=== PATIENT | male | born 1950 | race Two or more races ===

== ENCOUNTER 2025-05-31 18:06 | Inpatient (IN) | payer BC, OTHER ==
[~2025-05-31] VITALS: Ht 180.3 cm; Wt 140.6 kg
--- NOTE | 2025-05-31 18:23 | ECG ---
[facility] Test Date: 2025-05-31 Test Time: 18:17:34 Pat Name: NIEVES STOUT Department[facility] Patient [facility]: [id number] Room: 0220T Gender: M [employer]: gp : 1950 Requested By: SUHAIL LOMAS Order Number: [id number] Reading MD: Guicho Draper Measurements Intervals [place] Rate: 105 P: 48 [place]: 159 QRS: 93 QRSD: 97 T: -14 QT: 349 QTc: 462 Interpretive Statements Sinus tachycardia Multiple ventricular premature complexes Right axis deviation Low voltage, precordial leads Borderline T abnormalities, inferior leads Electronically Signed On 06-04-2025 20:29:34 PDT by Guicho Draper Please click the below link to view image of tracing.
--- NOTE | 2025-05-31 18:38 | ED.PDOC ---
SOB-HPI HPI Comments HPI: 74 year old male presents to the emergency department with a chief compliant of shortness of breath onset today (05/31/25) about 1 hour prior to ED arrival. Per EMS, patient was at home, cooking, when he began experiencing shortness of breath. Upon EMS arrival, O2 sat was 85% on RA, placed on 4L NC O2 sat improved to 94%. Patient has not seen PCP in years, unknown if he has any medical conditions and not taking any medications. Denies fever, chills, chest pain, dizziness, headache, blurred vision, nausea, vomiting, diarrhea, numbness/tingling. No other symptoms or modifying factors present at this time. Initial Vitals BP: 144/99 HR: 107 RR: 20 O2: 94% on 4L Temp: 98.1 F Past Medical History: Denies Past Surgical History: Denies Social History: Denies ETOH, smoking, and drug use. Medications: Denies Allergies: NKDA HPI: Poor Historian. Past Medical History: Past Surgical History: REVIEW OF SYSTEMS: CONSTITUTIONAL: Denies acute: fever, diaphoresis, chills, HEAD: Denies acute: headache, photophobia Eyes: Denies acute: Double vision, vision loss, eye pain, eye discharge. EARS: Denies acute: tinnitus, hearing loss, ear discharge, ear pain, THROAT: Denies acute: sore throat, swelling, difficulty swallowing , pain with swallowing, change in voice. NECK: Denies acute: neck pain, neck swelling, stiff neck. HEART: Denies acute : chest pain, palpitations, LUNGS: Denies acute: wheezing, cough, hemoptysis ABDOMEN: Denies acute: abdominal pain, Nausea, Vomiting, diarrhea, melena , hematemesis, hematochezia SKIN: Denies acute: rash, redness, lesions, itchiness. EXTREMITIES: Denies acute: calf pain, numbness, tingling, weakness, denies pain in extremity. Denies acute: Low back pain. Neuro: Denies acute: focal neurological deficit, motor or sensory focal neurological deficit, tremors, seizure like activity, confusion, dizziness, change in mental status, loss of bowel or bladder function, cauda equina like symptoms. : Denies acute: dysuria, hematuria, flank pain, increase in urinary frequency. PSYCH: Denies acute: hallucination, suicidal ideation, homicidal ideation. FEMALE: Denies acute: abnormal vaginal bleeding, foul odor, unusual discharge. PHYSICAL EXAM: General: ----[id number]----acute distress, awake and alert. Head: normocephalic, atraumatic. Neck: supple, trachea is midline, no swelling. Throat: Normal phonation. Eyes:, no erythema, no purulent discharge, no proptosis, no icterus. Heart: regular rate, regular rhythm, no significant murmur appreciated. Lungs: Mild respiratory distress, Able to speak in full sentences. No wheezing, no rhonchi, no crackles. No stridors Clear to auscultation bilaterally. Abdomen: non tender to palpation, non distended, soft, no guarding, no rebound, + bowel sounds. Obese Neuro: Awake, Alert, oriented to name, self, situation, follows commands GCS=15. Speech is normal. Skin: no petechia, no purpura, no cyanosis, non-pale, not jaundice. Lower extremities: --1/4 b/l - Pitting edema no deformity, no focal swelling, no calf TTP. Makes eye contact. moves all four extremities. Face: no apparent facial droop. Ambulating in the ED independently. ED COURSE: DISCLAIMER: This medical document was created using an electronic medical record system with voice recognition software and computerized dictation system. Although this document has been carefully reviewed, there might still be some phonetic and typographical errors. Occasional wrong-word or "sound-alike" substitutions may have occurred due to the inherent limitations of voice recognition software. These areas are purely typographical due to imperfections of the software programs and do not reflect any compromise in the patient's medical care. Please read the chart carefully and recognize, using context, where these substitutions have occurred. Chief Complaint: Shortness of Breath Time Seen by MD: 18:15 Reviewed notes: Medications, Allergies Information Source: Patient, Emergency Med Personnel Mode of Arrival: EMS Severity: Moderate Timing: Hours Duration: Since onset Context: With Light Exertion PE Risk Factors: None History of: None Prehospital treatment: Oxygen (4L ) Past Medical History PAST MEDICAL HISTORY: Denies Surgical History: Denies all surgeries Family History Family History: Reviewed,noncontributory to illness, No family hx of Cancer, No family hx of DM, No family hx of Heart elías, No family hx of HTN, No family hx ofKidney elías, No family hx of Liver elías, No family hx of Lung elías, No family hx of Stroke Social History Smoker: Non-Smoker Alcohol: Denies ETOH Use Drugs: Denies Drug Use Lives In: Home EKG EKG : Pulse Rate (adult): 105 Cardiac Rhythm: ST, PVC's Comments t wave inversion lead 3 Was a procedure done? Was a procedure done?: No Differential Dx Differential Diagnosis: Other (DDx include ACS, unstable angina, anxiety, PE, pneumothroax, neoplasm, cardiac ischemia, COPD, asthma, CHF, pleural effusion, tobacco abuse, pneumonia, hypoxia, hypercapnia, anemia., infection/sepsis., pulmonary edema. Asthma, Cardiac tamponade, infection.) X-Ray, Labs, Meds, VS Vital Signs Date Time Temp Pulse Resp B/P (MAP) Pulse Ox O2 Delivery O2 Flow Rate FiO2 05/31/25 20:00 90 05/31/25 20:00 93 14 127/80 (96) 95 05/31/25 19:30 97.9 91 13 136/79 (98) 96 97.9 05/31/25 19:30 91 13 96 Nasal Cannula* 5 40 05/31/25 18:38 105 05/31/25 18:29 90 15 155/70 (98) 91 05/31/25 18:17 105 05/31/25 18:10 98.1 107 20 147/99 94 98.1 Lab Test 05/31/25 19:43 05/31/25 18:50 Range/Units Troponin I High Sensitivity 4 6 </=54 ng/L Triglycerides Level 90 < 150 mg/dL Cholesterol Level 116 < 200 mg/dL LDL Cholesterol 79 < 100 mg/dL HDL Cholesterol 35 L 40-59 mg/dL Thyroid Stimulating Hormone (TSH) 1.50 0.55-4.78 uIU/mL White Blood Count 7.8 4.4-10.8 10^3/uL Red Blood Count 3.42 L 4.5-5.90 10^6/uL Hemoglobin 11.1 L 13.5-17.5 g/dL Hematocrit 32.9 L 41.0-53.0 % Mean Corpuscular Volume 96.0 80.0-100.0 fL Mean Corpuscular Hemoglobin 32.3 H 28.0-32.0 pg Mean Corpuscular Hemoglobin Concent 33.6 32.0-36.0 g/dL Red Cell Distribution Width 15.0 H 11.8-14.3 % Platelet Count 294 140-450 10^3/uL Mean Platelet Volume 7.3 6.9-10.8 fL Neutrophils (%) (Auto) 66.0 37.0-80.0 % Lymphocytes (%) (Auto) 24.8 10.0-50.0 % Monocytes (%) (Auto) 7.0 0.0-12.0 % Eosinophils (%) (Auto) 1.7 0.0-7.0 % Basophils (%) (Auto) 0.5 0.0-2.0 % Neutrophils # (Auto) 5.1 1.6-8.6 10 ^3/uL Lymphocytes # (Auto) 1.9 0.4-5.4 10 ^3/uL Monocytes # (Auto) 0.5 0-1.3 10 ^3/uL Eosinophils # (Auto) 0.1 0-0.8 10 ^3/uL Basophils # (Auto) 0 0-0.2 10 ^3/uL Nucleated Red Blood Cells 0.2 % D-Dimer, Quantitative 3.75 H 0.0-0.49 mg/L FEU Sodium Level 142 136-145 mmol/L Potassium Level 3.8 3.5-5.1 mmol/L Chloride Level 104 98-107 mmol/L Carbon Dioxide Level 27 20-31 mmol/L Anion Gap 11 5-15 Blood Urea Nitrogen 11 9-23 mg/dL Creatinine 0.81 0.700-1.30 mg/dL Glomerular Filtration Rate Calc 92 >90 mL/min BUN/Creatinine Ratio 13.6 10.0-20.0 Serum Glucose 141 H 74-106 mg/dL Hemoglobin A1c 6.7 H <5.7 % A1C Calcium Level 8.4 L 8.7-10.4 mg/dL Total Bilirubin 0.4 0.2-1.0 mg/dL Aspartate Amino Transferase (AST) 26 13-40 U/L Alanine Aminotransferase (ALT) 23 7-40 U/L Alkaline Phosphatase 79 46-116 U/L B-Type Natriuretic Peptide 99.00 0-100 pg/mL Total Protein 6.9 5.7-8.2 g/dL Albumin 3.9 3.2-4.8 g/dL [address] [address] Ph: [phone] DIAGNOSTIC IMAGING Diagnostic Imaging Report : [id number] Signed PATIENT: NIEVES STOUT RACCT: [id number] UNIT: [id number] : 1950 LOC: ER ROOM / BED: / AGE / SEX: 74 / M ADM STATUS: REG ER SERVICE 34 ORDERING PHYSICIAN: SUHAIL LOMAS DO PROCEDURE(s): CXRP - CHEST PORTABLE REASON: cp ORDER NUMBER(s): [id number], ACCESSION NUMBER(s): [id number] CLINICAL HISTORY: cp TECHNIQUE: Single view of the chest was obtained. COMPARISON: None FINDINGS: The heart size and pulmonary vasculature are normal. There is a left basilar opacity. IMPRESSION: Left basilar opacity, likely atelectasis left trace pleural effusion. ATED BY: LUCIANO PHAN MD DICTATED DATE/TIME: 05/31/251918 SIGNED BY: LUCIANO PHAN MD SIGNED DATE/TIME: 05/31/251918 CC: Time of 1ST Reevaluation: 18:45 Reevaluation 1ST: Unchanged Patient Education/Counseling: Diagnosis, Treatment Family Education/Counseling: No Family Present Comments MDM: patient presented with the above HPI.---dyspnea---workup was initiated. patient was found with the above mentioned diagnosis. the following medications were ordered: please refer to order lists of meds and tests obtained by myself Dr. Lomas. Patient ED course and VS have been stabilized. Patient has been reassessed in the ED and remained in a stable condition. Pertinent incidental findings were discussed with the patient and/or family. Patient/family voices understanding and is agreeable with plan. Patient has been observed in the ED adequate length of time to insure improvement/stability. Escalation of care considered: Consideration of escalation to observation or admission Patient was ADMITTED to the medicine team for further evaluation and treatment of their presentation. All the reports of any imaging studies that were ordered by myself were reviewed by myself. Departure 1 Departure Time of Disposition: 18:49 Impression: Primary Impression: Hypoxemia Additional Impression: Dyspnea Disposition: 09 ADMITTED INPATIENT Admit to: Tele Condition: Guarded e-Prescriptions No Active Prescriptions or Reported Meds Discharged With: Self Critical Care Note Critical Care Time?: Yes (45 min-critical care time only) Heart Score Heart Score: Heart Score Response (Comments) Value History Slightly Suspicious 0 EKG Normal 0 Age >65 2 Risk Factors No known risk factors 0 Troponin Normal limit 0 Total 2 I personally scribed for SUHAIL LOMAS DO ([email or web address]) on 05/31/25 at 18:38. Electronically submitted by Elzbieta Combs ([email or web address]). I personally scribed for SUHAIL LOMAS DO ([email or web address]) on 05/31/25 at 18:42. Electronically submitted by Elzbieta Combs ([email or web address]). I personally scribed for SUHAIL LOMAS DO ([email or web address]) on 05/31/25 at 19:37. Electronically submitted by Elzbieta Combs ([email or web address]). SUHAIL LOMAS DO May 31, 2025 18:38
[2025-05-31 19:21] LABS: Hematocrit 32.9 % (41.0-53.0); Hemoglobin 11.1 g/dL (13.5-17.5); Mean Corpuscular Hemoglobin 32.3 pg (28.0-32.0); Mean Corpuscular Volume 96.0 fL (80.0-100.0); Nucleated Red Blood Cells % 0.2 %
--- NOTE | 2025-05-31 19:21 | DVH ---
CLINICAL HISTORY: cp TECHNIQUE: Single view of the chest was obtained. COMPARISON: None FINDINGS: The heart size and pulmonary vasculature are normal. There is a left basilar opacity. IMPRESSION: Left basilar opacity, likely atelectasis left trace pleural effusion.
[2025-05-31 19:30] VITALS: PULSE 91; RESP 13; O2SAT 96
[2025-05-31 19:34] LABS: Alanine Aminotransferase 23 U/L (7-40); Albumin 3.9 g/dL (3.2-4.8); Alkaline Phosphatase 79 U/L (46-116); Anion Gap 11 (5-15); BUN/Creatinine Ratio 13.6 (10.0-20.0); Bilirubin, Total 0.4 mg/dL (0.2-1.0); Blood Urea Nitrogen 11 mg/dL (9-23); Carbon Dioxide 27 mmol/L (20-31); Chloride 104 mmol/L (98-107); Potassium 3.8 mmol/L (3.5-5.1); Sodium 142 mmol/L (136-145); Total Protein 6.9 g/dL (5.7-8.2)
[2025-05-31 19:35] LABS: Calcium 8.4 mg/dL (8.7-10.4); Glucose 141 mg/dL (74-106)
[2025-05-31] MEDS: IOHEXOL 350 MG/ML 100ML IJ ONE (20:39)
[2025-05-31] MEDS ORDERED: MORPHINE SULFATE INJ 2 MG/ml SYRG IV PRN (20:45)
[2025-05-31] MEDS ORDERED: NITROGLYCERIN 0.4 MG SL TAB SL PRN (20:45)
--- NOTE | 2025-05-31 22:36 | DVH ---
CTA Chest with intravenous contrast INDICATION: r/ pe COMPARISON: Same day chest radiograph TECHNIQUE: Multidetector spiral CTA of the chest was performed of the chest with intravenous contrast . PULMONARY ANGIOGRAPHY PROTOCOL was utilized using a bolus-tracking technique centered on the main p ulmonary artery. Axial, coronal and sagittal multiplanar and MIP reformats were performed. Radiation Dose : 1. Chest: CTDI volume is 28.59 mGy. Dose-length product is 1124.45 mGy*cm The dose indicators for CT are the volume Computed Tomography (CT) Dose Index (CTDIvol) and the Dose Length Product (DLP), and are measured in units of mGy and mGy-cm, respectively. These indicators are not patient dose, but values generated from the CT scanner acquisition factors. The report includes radiation exposure data for exposures received during this examination. Findings: Pulmonary arteries: Suboptimal contrast bolus timing, adequate for assessment to the level of the lob ar arteries. Possible filling defects within the left lower lobar and proximal segmental branches (se macrina 2, images 119- 128/283). Central pulmonary arteries are normal in caliber. Lower neck: Unremarkable. Lungs: No focal consolidation. Mild ground-glass attenuation in the lung bases. Peripheral pulmonary arterial enlargement. Pleura: Normal. Heart/Vascular Structures: Upper normal heart size. No pericardial effusion. Multivessel coronary a therosclerosis. Lymph Nodes: No adenopathy Musculoskeletal: No acute osseous abnormality. Mild degenerative changes. Soft tissues: Unremarkable. Upper abdomen: No acute findings. Hepatic simple density cyst. IMPRESSION: 1. Questionable small embolism at the distal left inferior lobar and proximal subsegmental branches. Assessment is limited by suboptimal contrast bolus timing. No evidence of right heart strain. 2. Peripheral pulmonary arterial enlargement and basilar ground-glass attenuation suggesting mild hea rt failure. No focal consolidation. I communicated the above finding of suspected pulmonary embolism by telephone with Dr. Duenas at 10:32 p.m. PST on 05/31/2025, who demonstrated understanding with positive read back.
[2025-05-31] MEDS ORDERED: ALBUTEROL SULF 2.5 MG/0.5ML(0.5%) NEB SOLN NEB PRN (23:45)
[2025-05-31] MEDS ORDERED: ACETAMINOPHEN 325 MG TAB PO PRN (23:45)
[2025-05-31] MEDS ORDERED: HYDROcodone-ACET 5/325MG TAB PO PRN (23:45)
[2025-05-31] MEDS ORDERED: ONDANSETRON HCL 4 MG/2 ML VIAL IV PRN (23:45)
--- NOTE | 2025-05-31 23:48 | DVHHP2 ---
History of Present Illness Reason for Visit: Shortness for breath History of Present Illness 74-year-old male presents for evaluation of shortness for breath. Patient reports a one day history of new onset shortness for breath. He states his symptoms are worse with exertion. Denies chest pain or palpitations. No cough or fever. No other acute complaints. Patient has not seen a medical provider in over 30 years. Past Medical History Denies Past Surgical History Denies Family History Noncontributory Smoke: No Drugs: None Lives: Alone Review of Systems Review of Systems Review of systems are currently negative otherwise addressed in HPI. Allergies: Coded Allergies: NO KNOWN ALLERGIES (Unverified , 05/31/25) Medications Current Medications Medications Dose Ordered Sig/Judi Route Start Time Stop Time Status Last Admin Dose Admin Nitroglycerin 0.4 mg Q5MINP PRN SL 05/31/25 20:45 Morphine Sulfate 2 mg Q30M PRN IV 05/31/25 20:45 Exam Vital Signs Vital Signs Date Time Temp Pulse Resp B/P (MAP) Pulse Ox O2 Delivery O2 Flow Rate FiO2 05/31/25 20:00 90 05/31/25 20:00 14 127/80 (96) 95 05/31/25 19:30 97.9 97.9 05/31/25 19:30 Nasal Cannula* 5 40 Exam Gen: 74-year-old male in mild distress. Skin: Warm, dry, normal color and texture, no rash. HEENT: Normocephalic atraumatic, mucous membranes moist and pink. Neck: Cervical and supraclavicular nodes normal without enlargement, trachea is midline, thyroid gland is normal without masses. Pulmonary: Clear to auscultation and percussion bilaterally. Cardiac: Regular rate and rhythm. No murmur Abdomen: Soft, nontender, nondistended, bowel sounds present all 4 quadrants, no guarding, no rigidity, no organomegaly. Extremities: No cyanosis, clubbing, no edema Neuro: Cranial nerves II through XII grossly intact, normal affect and speech, no focal motor deficits. Labs/Xrays ORDERING PHYSICIAN: ANTHONY MONTAGUE PROCEDURE(s): CTACH - CT ANGIO CHEST CONTRAST REASON: r/ pe ORDER NUMBER(s): [id number], ACCESSION NUMBER(s): [id number] CTA Chest with intravenous contrast INDICATION: r/ pe COMPARISON: Same day chest radiograph TECHNIQUE: Multidetector spiral CTA of the chest was performed of the chest with intravenous contrast. PULMONARY ANGIOGRAPHY PROTOCOL was utilized using a bolus- tracking technique centered on the main pulmonary artery. Axial, coronal and sagittal multiplanar and MIP reformats were performed. Radiation Dose : 1. Chest: CTDI volume is 28.59 mGy. Dose-length product is 1124.45 mGy*cm The dose indicators for CT are the volume Computed Tomography (CT) Dose Index (CTDIvol) and the Dose Length Product (DLP), and are measured in units of mGy and mGy-cm, respectively. These indicators are not patient dose, but values generated from the CT scanner acquisition factors. The report includes radiation exposure data for exposures received during this examination. Findings: Pulmonary arteries: Suboptimal contrast bolus timing, adequate for assessment to the level of the lobar arteries. Possible filling defects within the left lower lobar and proximal segmental branches (series 2, images 119- 128/283). Central pulmonary arteries are normal in caliber. Lower neck: Unremarkable. Lungs: No focal consolidation. Mild ground-glass attenuation in the lung bases. Peripheral pulmonary arterial enlargement. Pleura: Normal. Heart/Vascular Structures: Upper normal heart size. No pericardial effusion. Multivessel coronary atherosclerosis. Lymph Nodes: No adenopathy Musculoskeletal: No acute osseous abnormality. Mild degenerative changes. Soft tissues: Unremarkable. Upper abdomen: No acute findings. Hepatic simple density cyst. IMPRESSION: 1. Questionable small embolism at the distal left inferior lobar and proximal subsegmental branches. Assessment is limited by suboptimal contrast bolus timing. No evidence of right heart strain. 2. Peripheral pulmonary arterial enlargement and basilar ground-glass attenuation suggesting mild heart failure. No focal consolidation. I communicated the above finding of suspected pulmonary embolism by telephone with Dr. Duenas at 10:32 p.m. PST on 05/31/2025, who demonstrated understanding with positive read back. Labs Test 05/31/25 19:43 05/31/25 18:50 Range/Units Troponin I High Sensitivity 4 </=54 ng/L White Blood Count 7.8 4.4-10.8 10^3/uL Red Blood Count 3.42 L 4.5-5.90 10^6/uL Hemoglobin 11.1 L 13.5-17.5 g/dL Hematocrit 32.9 L 41.0-53.0 % Mean Corpuscular Volume 96.0 80.0-100.0 fL Mean Corpuscular Hemoglobin 32.3 H 28.0-32.0 pg Mean Corpuscular Hemoglobin Concent 33.6 32.0-36.0 g/dL Red Cell Distribution Width 15.0 H 11.8-14.3 % Platelet Count 294 140-450 10^3/uL Mean Platelet Volume 7.3 6.9-10.8 fL Neutrophils (%) (Auto) 66.0 37.0-80.0 % Lymphocytes (%) (Auto) 24.8 10.0-50.0 % Monocytes (%) (Auto) 7.0 0.0-12.0 % Eosinophils (%) (Auto) 1.7 0.0-7.0 % Basophils (%) (Auto) 0.5 0.0-2.0 % Neutrophils # (Auto) 5.1 1.6-8.6 10 ^3/uL Lymphocytes # (Auto) 1.9 0.4-5.4 10 ^3/uL Monocytes # (Auto) 0.5 0-1.3 10 ^3/uL Eosinophils # (Auto) 0.1 0-0.8 10 ^3/uL Basophils # (Auto) 0 0-0.2 10 ^3/uL Nucleated Red Blood Cells 0.2 % D-Dimer, Quantitative 3.75 H 0.0-0.49 mg/L FEU Sodium Level 142 136-145 mmol/L Potassium Level 3.8 3.5-5.1 mmol/L Chloride Level 104 98-107 mmol/L Carbon Dioxide Level 27 20-31 mmol/L Anion Gap 11 5-15 Blood Urea Nitrogen 11 9-23 mg/dL Creatinine 0.81 0.700-1.30 mg/dL Glomerular Filtration Rate Calc 92 >90 mL/min BUN/Creatinine Ratio 13.6 10.0-20.0 Serum Glucose 141 H 74-106 mg/dL Calcium Level 8.4 L 8.7-10.4 mg/dL Total Bilirubin 0.4 0.2-1.0 mg/dL Aspartate Amino Transferase (AST) 26 13-40 U/L Alanine Aminotransferase (ALT) 23 7-40 U/L Alkaline Phosphatase 79 46-116 U/L B-Type Natriuretic Peptide 99.00 0-100 pg/mL Total Protein 6.9 5.7-8.2 g/dL Albumin 3.9 3.2-4.8 g/dL SEPSIS Sepsis Screen Date sepsis recognized/suspect: May 31, 2025 Time Sepsis recognized/suspect: 2025 Recent Procedure: No On Antibiotic Therapy: No Respiratory Rate >20: No Heart Rate >90: Yes Temp<36 C (96.8 F) or >38.3 C: No SBP <90 or MAP <65 mmHG: No New Acute Mental Status Change: No Is the patient on CPAP, BIPAP,: No Physician Orders Straw Hat Brim Raiser Operator (05/31/25 ) Chest Portable (05/31/25 18:35) Electrocardigram (05/31/25 10:35) Electrocardigram (05/31/25 12:35) Urinalysis (05/31/25 18:35) Admit (05/31/25 20:31) Nitroglycerin Sublingual (Ntrostat Subli (05/31/25 20:45) Morphine Sulfate Injection (05/31/25 20:45) Stat Ekg For Chest Pain (05/31/25 20:31) Notify Md Of Changes From Base (05/31/25 20:31) Collect On Delivery Clerk For 24 Hours (05/31/25 20:31) Emergency Dysrhythmia Protocol (05/31/25 20:31) Rhythm Strips Once Every Shift (05/31/25 20:31) Oxygen By Nasal Cannula (05/31/25 20:31) Ct Angio Chest Contrast (05/31/25 20:31) Enoxaparin Sodium (Lovenox) (05/31/25 23:45) Aspirin Tablet (06/01/25 10:00) Atorvastatin (Lipitor) (06/01/25 22:00) Hemoglobin A1c (05/31/25 23:36) Thyroid Stimulating Hormone (05/31/25 23:36) Lipid Panel (05/31/25 23:36) Metoprolol Xl Succinate (Toprol Xl) (06/01/25 10:00) *Consult (05/31/25 23:36) Albuterol Medneb (Ventolin Medneb) (05/31/25 23:45) Basic Metabolic Panel (06/01/25 04:00) Hydrocodone-Acet 5/325mg Tab ([place] 5/32 (05/31/25 23:45) Ondansetron Hcl (Zofran) (05/31/25 23:45) Cardiac Diet-2gna,Lofat,Lochol (06/01/25 Breakfast) Echo 2d Mode Cardiac Dop (05/31/25 23:36) Condition: Fair (05/31/25 23:36) Acetaminophen Tablet (Tylenol Tablet) (05/31/25 23:45) Bedrest With Bathroom Privileg (05/31/25 23:36) * Cardiology Consult (05/31/25 23:36) Vital Signs Date Time Temp Pulse Resp B/P (MAP) Pulse Ox O2 Delivery O2 Flow Rate FiO2 05/31/25 20:00 90 05/31/25 20:00 93 14 127/80 (96) 95 05/31/25 19:30 97.9 91 13 136/79 (98) 96 97.9 05/31/25 19:30 91 13 96 Nasal Cannula* 5 40 05/31/25 18:38 105 05/31/25 18:29 90 15 155/70 (98) 91 05/31/25 18:17 105 05/31/25 18:10 98.1 107 20 147/99 94 98.1 Laboratory Tests Test 05/31/25 18:50 White Blood Count 7.8 10^3/uL (4.4-10.8) Assessment/Plan Assessment/Plan Assessment Pulmonary embolism Acute respiratory distress Hypoxemia Questionable heart failure Hypertension Morbid obesity Plan Admit the patient to telemetry to the hospitalist Faizan colon Cardiology consult Pulmonary consult Echocardiogram pending Continue treatment per orders. Plan discussed with: Patient My Orders Orders - ANTHONY MONTAGUE Procedure Category Date Status Time Admit ADMIT 05/31/25 Transmitted 20:31 Nitroglycerin PHA 05/31/25 In Process Sublingual (Ntrostat 20:45 Morphine Sulfate PHA 05/31/25 In Process Injection 20:45 Stat Ekg For Chest STEVIE 05/31/25 In Process Pain 20:31 Notify Of Changes STEVIE 05/31/25 In Process From Base 20:31 Collect On Delivery Clerk For STEVIE 05/31/25 In Process 24 Hours 20:31 Emergency Dysrhythmia STEVIE 05/31/25 In Process Protocol 20:31 Rhythm Strips Once STEVIE 05/31/25 In Process Every Shift 20:31 Oxygen By Nasal RT 05/31/25 Transmitted Cannula 20:[address] 05/31/25 Resulted Contrast 20:31 Enoxaparin Sodium PHA 05/31/25 Transmitted (Lovenox) 23:45 Aspirin Tablet PHA 06/01/25 Transmitted 10:00 Atorvastatin (Lipitor) PHA 06/01/25 Transmitted 22:00 Hemoglobin A1c LAB 05/31/25 Transmitted 23:36 Thyroid Stimulating LAB 05/31/25 Transmitted Hormone 23:36 Lipid Panel LAB 05/31/25 Transmitted 23:36 Metoprolol Xl PHA 06/01/25 Transmitted Succinate (Toprol Xl) 10:00 *Consult CONS 05/31/25 Transmitted 23:36 Albuterol Medneb PHA 05/31/25 Transmitted (Ventolin Medneb) 23:45 Basic Metabolic Panel LAB 06/01/25 Verified 04:00 Hydrocodone-Acet PHA 05/31/25 Transmitted 5/325mg Tab ([place] 23:45 Ondansetron Hcl PHA 05/31/25 Transmitted (Zofran) 23:45 Cardiac DIET 06/01/25 Transmitted Diet-2gna,Lofat,Lochol Breakfast Echo 2d Mode Cardiac US 05/31/25 Transmitted DOP 23:36 Condition: Fair STEVIE 05/31/25 Transmitted 23:36 Acetaminophen Tablet PHA 05/31/25 Transmitted (Tylenol Tablet) 23:45 Bedrest With Bathroom STEVIE 05/31/25 Verified Privileg 23:36 * Cardiology Consult CONS 05/31/25 Verified 23:36 Date of Service: May 31, 2025 Billing Provider: ANTHONY MONTAGUE Common Visit Codes: [id number] INP/OBS CARE (HIGH) ANTHONY MONTAGUE May 31, 2025 23:48
[2025-06-01] VITALS (12 sets, daily range): BP systolic 111–151; BP diastolic 69–86; PULSE 58–101; RESP 16–20; TEMP 97.5–99; O2SAT 95–100
[2025-06-01] MEDS: ENOXAPARIN SOD 100 MG/1 ML SYRINGE SC SCH (00:13)
[2025-06-01 00:47] LABS: Urine Protein, UAD Negative (Negative)
[2025-06-01 02:10] LABS: Triglycerides 90 mg/dL (< 150)
[2025-06-01 02:12] LABS: Cholesterol 116 mg/dL (< 200)
[2025-06-01 02:13] LABS: HDL Cholesterol 35 mg/dL (40-59)
[2025-06-01 06:34] LABS: Anion Gap 7 (5-15); Carbon Dioxide 28 mmol/L (20-31); Potassium 4.4 mmol/L (3.5-5.1); Sodium 142 mmol/L (136-145)
[2025-06-01 06:37] LABS: Calcium 8.0 mg/dL (8.7-10.4); Chloride 107 mmol/L (98-107)
[2025-06-01 06:40] LABS: BUN/Creatinine Ratio 18.2 (10.0-20.0); Blood Urea Nitrogen 12 mg/dL (9-23)
[2025-06-01 06:41] LABS: Glucose 128 mg/dL (74-106)
[2025-06-01 08:52] LABS: Barbiturate Scree,Urine Neg (NEGATIVE); Opiate Scree,Urine Neg (NEGATIVE)
[2025-06-01 08:53] LABS: Amphetamine Screen, Urine Neg (NEGATIVE); Benzodiazephine Screen, Urine Neg (NEGATIVE); Cannabinoid Screen, Urine Neg (NEGATIVE); Cocaine Screen, Urine Neg (NEGATIVE); Phencyclidine Screen, Urine Neg (NEGATIVE)
[2025-06-01] MEDS: METOPROLOL SUCCINATE XL 50 MG TAB PO SCH (10:08)
--- NOTE | 2025-06-01 10:11 | DVHINCON2 ---
Date Seen: Jun 01, 2025 Referring Physician ESTELLA Preston Reason for Consultation Rule out heart failure History of Present Illness This is a 74-year-old male patient who presents to the emergency room with chief complaint of shortness of breath. The patient reports that symptoms began at approximately 3:00 p.m. yesterday with sudden onset. He reports experiencing this shortness of breath only on exertion. He denied any chest pain, palpitations, or dizziness. The patient and his son became concerned prompting them to call EMS. The patient was brought to the emergency room for further evaluation. Cardiology has been consulted at this time for questionable heart failure. Initial twelve lead electrocardiogram (seen on Cardio server manager) reveals sinus tachycardia with PVCs (S1Q3T3 pattern noted). Initial troponin level of 6ng/L with down trend thereafter. The patient denies any past medical history but also reports he has not seen a primary care physician and approximately 30 years. Past Medical History Denies any previous medical history Past Surgical History Right meniscus repair Family History: Patient reports no known family medical history. Family History Family history reviewed. Social History Denies the use of tobacco, alcohol or illicit drugs. Allergies: Coded Allergies: NO KNOWN ALLERGIES (Unverified , 05/31/25) Home Meds No Active Prescriptions or Reported Meds Home Meds Denies taking any prescribed medications Current Medications Current Medications Medications (Trade) Dose Ordered Sig/Judi Route PRN Reason Start Time Stop Time Status Last Admin Nitroglycerin (Ntrostat Sublingual) 0.4 mg Q5MINP PRN SL FOR CHEST PAIN 05/31/25 20:45 Morphine Sulfate 2 mg Q30M PRN IV FOR CHEST PAIN 05/31/25 20:45 Enoxaparin Sodium (Lovenox) 110 mg Q12HR SC 05/31/25 23:45 06/01/25 00:13 Aspirin 81 mg DAILY PO 06/01/25 10:00 Atorvastatin Calcium (Lipitor) 10 mg HS PO 06/01/25 22:00 Metoprolol Succinate (Toprol Xl) 12.5 mg DAILY PO 06/01/25 10:00 Albuterol (Ventolin Medneb) 2.5 mg Q6HPRN PRN NEB SHORTNESS OF BREATH 05/31/25 23:45 Acetaminophen/ Hydrocodone Bitart ([place] 5/325MG Tab) 1 tab Q4HP PRN PO MODERATE PAIN (4-6 PAIN SCALE) 05/31/25 23:45 Ondansetron HCl (Zofran) 4 mg Q4HP PRN IV NAUSEA / VOMITING 05/31/25 23:45 Acetaminophen (Tylenol Tablet) 650 mg Q6HP PRN PO PAIN SCALE 1-3 OR TEMP>100.4 05/31/25 23:45 Review of Systems Constitutional: No symptom reported Ears, Nose, & Throat: No symptom reported Eyes: No symptom reported Neurological: No symptoms reported Pulmonary/Respiratory: Shortness of breath Cardiovascular: No symptom reported Gastrointestinal: No symptom reported Genitourinary: No symptom reported Musculoskeletal: No symptom reported Skin: No symptom reported Psychiatric: No symptom reported Endocrine: No symptom reported Hematologic/Lymphatic: No symptom reported Vital Signs Vital Signs Date Time Temp Pulse Resp B/P (MAP) Pulse Ox O2 Delivery O2 Flow Rate FiO2 06/01/25 05:00 97.5 92 17 135/76 (95) 97 97.5 06/01/25 00:04 5.0 40 06/01/25 00:03 Simple Mask* Physical Exam General Appearance: Cooperative. Morbidly obese Pulmonary/Respiratory: Clear, bilateral breaths sounds. Cardiovascular/Chest: Regular rate and rhythm. Peripheral Pulses: 2+ Radial (R). 2+ Radial (L). 2+ Pedal (R). 2+ Pedal (L) Abdominal Exam: Normal bowel sounds. Ankle Exam: Negative ankle edema Lower extremities: Negative lower extremity edema Neuro/Mental Status: A/OX4, coherent. Thoughts/Psych: Normal thought pattern. Appropriate mood and affect. Good judgment and insight. Appearance: No acute distress. Skin Exam: Normal inspection. Normal color. Warm and dry. Labs/Diagnostic Data Labs Test 06/01/25 05:42 05/31/25 23:39 05/31/25 23:34 05/31/25 19:43 Range/Units Sodium Level 142 136-145 mmol/L Potassium Level 4.4 3.5-5.1 mmol/L Chloride Level 107 98-107 mmol/L Carbon Dioxide Level 28 20-31 mmol/L Anion Gap 7 5-15 Blood Urea Nitrogen 12 9-23 mg/dL Creatinine 0.66 L 0.700-1.30 mg/dL Glomerular Filtration Rate Calc 98 >90 mL/min BUN/Creatinine Ratio 18.2 10.0-20.0 Serum Glucose 128 H 74-106 mg/dL Calcium Level 8.0 L 8.7-10.4 mg/dL Magnesium Level 2.0 1.6-2.6 mg/dL Urine Opiates Screen Neg NEGATIVE Urine Fentanyl Screen Neg NEGATIVE Urine Barbiturates Screen Neg NEGATIVE Urine Phencyclidine Screen Neg NEGATIVE Urine Amphetamines Screen Neg NEGATIVE Urine Benzodiazepines Screen Neg NEGATIVE Urine Cocaine Screen Neg NEGATIVE Urine Cannabinoids Screen Neg NEGATIVE Urine Color Yellow Yellow Urine Clarity Clear Clear Urine pH 7.0 5.0-9.0 Urine Specific [place] 1.045 H 1.001-1.035 Urine Protein Negative Negative Urine Ketones Trace Negative Urine Blood Negative Negative /uL Urine Nitrite Negative Negative Urine Bilirubin Negative Negative Urine Urobilinogen 2 H Negative mg/dL Urine Leukocyte Esterase Negative Negative /uL Urine Glucose Normal Normal mg/dL Troponin I High Sensitivity 4 </=54 ng/L Triglycerides Level 90 < 150 mg/dL Cholesterol Level 116 < 200 mg/dL LDL Cholesterol 79 < 100 mg/dL HDL Cholesterol 35 L 40-59 mg/dL Thyroid Stimulating Hormone (TSH) 1.50 0.55-4.78 uIU/mL Test 05/31/25 18:50 Range/Units White Blood Count 7.8 4.4-10.8 10^3/uL Red Blood Count 3.42 L 4.5-5.90 10^6/uL Hemoglobin 11.1 L 13.5-17.5 g/dL Hematocrit 32.9 L 41.0-53.0 % Mean Corpuscular Volume 96.0 80.0-100.0 fL Mean Corpuscular Hemoglobin 32.3 H 28.0-32.0 pg Mean Corpuscular Hemoglobin Concent 33.6 32.0-36.0 g/dL Red Cell Distribution Width 15.0 H 11.8-14.3 % Platelet Count 294 140-450 10^3/uL Mean Platelet Volume 7.3 6.9-10.8 fL Neutrophils (%) (Auto) 66.0 37.0-80.0 % Lymphocytes (%) (Auto) 24.8 10.0-50.0 % Monocytes (%) (Auto) 7.0 0.0-12.0 % Eosinophils (%) (Auto) 1.7 0.0-7.0 % Basophils (%) (Auto) 0.5 0.0-2.0 % Neutrophils # (Auto) 5.1 1.6-8.6 10 ^3/uL Lymphocytes # (Auto) 1.9 0.4-5.4 10 ^3/uL Monocytes # (Auto) 0.5 0-1.3 10 ^3/uL Eosinophils # (Auto) 0.1 0-0.8 10 ^3/uL Basophils # (Auto) 0 0-0.2 10 ^3/uL Nucleated Red Blood Cells 0.2 % D-Dimer, Quantitative 3.75 H 0.0-0.49 mg/L FEU Hemoglobin A1c 6.7 H <5.7 % A1C Total Bilirubin 0.4 0.2-1.0 mg/dL Aspartate Amino Transferase (AST) 26 13-40 U/L Alanine Aminotransferase (ALT) 23 7-40 U/L Alkaline Phosphatase 79 46-116 U/L B-Type Natriuretic Peptide 99.00 0-100 pg/mL Total Protein 6.9 5.7-8.2 g/dL Albumin 3.9 3.2-4.8 g/dL Assessment Rule out structural heart disease Questionable pulmonary embolism Type 2 diabetes mellitus, newly diagnosed Morbid obesity Plan/Recommendation We will continue with the following plan/recommendations (Dr. Draper): We will proceed with obtaining a transthoracic echocardiogram to evaluate cardiac function. [place] heart failure diagnostic criteria: Negative. The patient denies any paroxysmal nocturnal dyspnea or orthopnea. No cardiomegaly or pulmonary edema noted on chest x-ray. BNP level within range. Patient euvolemic at this time. CT angiography reveals a questionable small embolism at the distal left inferior lobar and proximal subsegmental branches. The patient was initiated on therapeutic Lovenox by he ER provider. In the setting of an unremarkable transthoracic echocardiogram, there is no further inpatient cardiac workup indicated at this time. Further management per pulmonology team and primary team. Thank you for allowing us to care for this patient. Please call with any questions or concerns. Critical care time spent: 44 minutes This medical document was created using an electronic medical record system with voice recognition software and computerized dictation system. Although this document has been carefully reviewed, there might still be some phonetic and typographical errors. Occasional wrong-word or ``sound-alike substitutions may have occurred due to the inherent limitations of voice recognition software. These areas are purely typographical due to imperfections of the software programs and do not reflect any compromise in the patient's medical care. Please read the chart carefully and recognize, using context, where these substitutions have occurred. Plan discussed with: Patient NYHA Physical activity limitations: NA Date of Service: Jun 01, 2025 Billing Provider: JOHN MELGAR Cardiology Common Codes: [id number] INP/OBS CARE (High) Cardiology Consultation Codes: [id number] CONSULT <45MIN JOHN MELGAR Jun 01, 2025 10:11
--- NOTE | 2025-06-01 14:17 | DVHPN2 ---
Subjective Patient reports having diaphoresis and shortness of breaths with ambulation. Reviewed: Care Plan, H&P, Labs, Medications Changes from previous H/P or p: No Changes General: Per HPI Objective Vitals Vital Signs Date Time Temp Pulse Resp B/P (MAP) Pulse Ox O2 Delivery O2 Flow Rate FiO2 06/01/25 10:08 80 131/80 06/01/25 08:49 98.0 18 98 98.0 06/01/25 08:00 Simple Mask* 8 60 Intake/Output Intake and Output 06/01/25 07:00 Intake Total 700 ml Output Total 300 ml Balance 400 ml Intake Oral 700 ml Output Urine Total 300 ml General Appearance: Alert, Oriented X3, Cooperative, No acute distress HEENT: Atraumatic, PERRLA Lungs: Clear to auscultation, Normal air movement Cardiovascular: Normal S1, Normal S2 Abdomen: Normal bowel sounds, Soft, No tenderness, No hepatospenomegaly, No masses Rectal: Normal inspection Back: Flank Tenderness, Midline Tenderness Musculoskeletal: Normal sensory function, Normal motor function Skin: Dry, Intact Psych/Mental Status: Mental status NL, Mood NL Medications Current Medications Medications Dose Ordered Sig/Judi Route Start Time Stop Time Status Last Admin Dose Admin Nitroglycerin 0.4 mg Q5MINP PRN SL 05/31/25 20:45 Morphine Sulfate 2 mg Q30M PRN IV 05/31/25 20:45 Enoxaparin Sodium 110 mg Q12HR SC 05/31/25 23:45 06/01/25 10:14 110 MG Aspirin 81 mg DAILY PO 06/01/25 10:00 06/01/25 10:07 81 MG Atorvastatin Calcium 10 mg HS PO 06/01/25 22:00 Metoprolol Succinate 12.5 mg DAILY PO 06/01/25 10:00 06/01/25 10:08 12.5 MG Albuterol 2.5 mg Q6HPRN PRN NEB 05/31/25 23:45 Acetaminophen/ Hydrocodone Bitart 1 tab Q4HP PRN PO 05/31/25 23:45 Ondansetron HCl 4 mg Q4HP PRN IV 05/31/25 23:45 Acetaminophen 650 mg Q6HP PRN PO 05/31/25 23:45 Laboratory Results Laboratory Tests 05/31/25 18:50 06/01/25 05:42 Chemistry Test 05/31/25 18:50 06/01/25 05:42 Albumin 3.9 g/dL (3.2-4.8) Calcium Level 8.4 mg/dL (8.7-10.4) L 8.0 mg/dL (8.7-10.4) L Total Protein 6.9 g/dL (5.7-8.2) Magnesium Level 2.0 mg/dL (1.6-2.6) Coagulation Test 05/31/25 18:50 D-Dimer, Quantitative 3.75 mg/L FEU (0.0-0.49) H Lipid panel Test 05/31/25 19:43 Cholesterol Level 116 mg/dL (< 200) HDL Cholesterol 35 mg/dL (40-59) L Triglycerides Level 90 mg/dL (< 150) Cardiac Markers Test 05/31/25 18:50 B-Type Natriuretic Peptide 99.00 pg/mL (0-100) LFT Test 05/31/25 18:50 Alanine Aminotransferase (ALT) 23 U/L (7-40) Alkaline Phosphatase 79 U/L (46-116) Aspartate Amino Transferase (AST) 26 U/L (13-40) Total Bilirubin 0.4 mg/dL (0.2-1.0) HgA1c, TSH Test 05/31/25 18:50 05/31/25 19:43 Hemoglobin A1c 6.7 % A1C (<5.7) H Thyroid Stimulating Hormone (TSH) 1.50 uIU/mL (0.55-4.78) Urinalysis Test 05/31/25 23:34 Urine Color Yellow (Yellow) Urine Clarity Clear (Clear) Urine pH 7.0 (5.0-9.0) Urine Specific [place] 1.045 (1.001-1.035) Urine Protein Negative (Negative) Urine Ketones Trace (Negative) Urine Blood Negative /uL (Negative) Urine Nitrite Negative (Negative) Urine Bilirubin Negative (Negative) Urine Urobilinogen 2 mg/dL (Negative) H Urine Leukocyte Esterase Negative /uL (Negative) Urine Glucose Normal mg/dL (Normal) Labs and/or images reviewed: Labs reviewed by me, Image(s) reviewed by me Assessment/Plan Assessment/Plan Impression: -acute hypoxic respiratory failure -pulmonary embolism -rule out DVT -morbid obesity -diabetes mellitus, new diagnosis -rule out congestive heart failure Plan: -echocardiogram pending -DVT study -continue full-dose anticoagulation -check ESR, CRP, LDH, PSA, CEA -weaned off O2 supplementation to keep saturation greater than 93% -further course of care per diagnostic results Total time spent with patient discussing and formulating plan of care: 35 minutes. This medical document was created using an electronic medical record system with [employer] dictation system. Although this document has been carefully reviewed, there may still be some phonetic and typographical errors. These areas are purely typographical due to imperfections of the software programs, and do not reflect any compromise in the patient's medical care. Plan discussed with: Patient, Other (RN) My Orders Orders - CATHI CASIANO NP Procedure Category Date Status Time Bilat Lower Dvt US 06/01/25 Logged 13:12 Carcinoembryonic LAB 06/01/25 Verified Antigen 14:11 C-Reactive Protein LAB 06/01/25 Verified 14:11 Erythrocyte LAB 06/01/25 Verified Sedimentation Rate 14:11 Psa Total+% Free LAB 06/01/25 Verified 14:11 Lactate Dehydrogenase LAB 06/01/25 Verified 14:11 Date of Service: Jun 01, 2025 Billing Provider: CATHI CASIANO NP Common Visit Codes: [id number] INP/OBS CARE(HIGH) CATHI CASIANO NP Jun 01, 2025 14:16
--- NOTE | 2025-06-01 14:54 | DVH ---
Bilateral lower extremity venous duplex Clinical History: positive PE Comparison: None Technique: Duplex Doppler evaluation of the deep venous systems of both lower extremities from the common femora l veins to the popliteal veins including color Doppler and spectral/pulsed waveform analysis was perf ormed. Findings: RIGHT SIDE: The common femoral vein demonstrates appropriate compressibility and waveform variability. There is compressibility/patency of the great saphenous vein at the proximal thigh. The femoral vein demonstrates appropriate compressibility and waveform variability. The deep femoral vein demonstrates appropriate compressibility and waveform variability. The popliteal vein demonstrates appropriate compressibility and waveform variability. There is normal compressibility at the tibioperoneal trunk. LEFT SIDE: The common femoral vein demonstrates appropriate compressibility and waveform variability. There is compressibility/patency of the great saphenous vein at the proximal thigh. The femoral vein demonstrates appropriate compressibility and waveform variability. The deep femoral vein demonstrates appropriate compressibility and waveform variability. The popliteal vein demonstrates appropriate compressibility and waveform variability. There is normal compressibility at the tibioperoneal trunk. Impression: 1. No right or left femoropopliteal venous thrombosis.
[2025-06-01] MEDS: ATORVASTATIN 20 MG TAB PO SCH (22:19)
[2025-06-01] MEDS: PANTOPRAZOLE 40 MG/10 ML VIAL INJ IV SCH (22:19)
[2025-06-01 22:58] LABS: Hematocrit 26.3 % (41.0-53.0); Hemoglobin 8.7 g/dL (13.5-17.5); Mean Corpuscular Hemoglobin 32.5 pg (28.0-32.0); Mean Corpuscular Volume 98.2 fL (80.0-100.0); Nucleated Red Blood Cells % 0.1 %
[2025-06-02] VITALS (12 sets, daily range): BP systolic 115–138; BP diastolic 64–79; PULSE 73–90; RESP 16–20; TEMP 94.8–98.3; O2SAT 92–97
[2025-06-02 06:42] LABS: Hemoglobin 8.4 g/dL (13.5-17.5)
[2025-06-02 06:45] LABS: Hematocrit 25.0 % (41.0-53.0); Mean Corpuscular Hemoglobin 32.5 pg (28.0-32.0); Mean Corpuscular Volume 96.9 fL (80.0-100.0); Nucleated Red Blood Cells % 0.1 %
[2025-06-02 08:07] LABS: Prostate Specific Antigen 2.4 ng/mL (0.0-4.0)
--- NOTE | 2025-06-02 11:47 | DVHPN2 ---
Subjective Patient reports having diaphoresis and shortness of breaths with ambulation. Reviewed: Care Plan, H&P, Labs, Medications Changes from previous H/P or p: No Changes General: Per HPI Objective Vitals Vital Signs Date Time Temp Pulse Resp B/P (MAP) Pulse Ox O2 Delivery O2 Flow Rate FiO2 06/02/25 11:27 95 Oxymizer 8 N/A 06/02/25 09:02 90 138/64 06/02/25 09:00 97.5 18 97.5 Intake/Output Intake and Output 06/02/25 07:00 Intake Total 500 ml Output Total 300 ml Balance 200 ml Intake Oral 500 ml Output Urine Total 300 ml # Voids 1 # Bowel Movements 1 General Appearance: Alert, Oriented X3, Cooperative, No acute distress HEENT: Atraumatic, PERRLA Lungs: Clear to auscultation, Normal air movement Cardiovascular: Normal S1, Normal S2 Abdomen: Normal bowel sounds, Soft, No tenderness, No hepatospenomegaly, No masses Rectal: Normal inspection Back: Flank Tenderness, Midline Tenderness Musculoskeletal: Normal sensory function, Normal motor function Skin: Dry, Intact Psych/Mental Status: Mental status NL, Mood NL Medications Current Medications Medications Dose Ordered Sig/Judi Route Start Time Stop Time Status Last Admin Dose Admin Nitroglycerin 0.4 mg Q5MINP PRN SL 05/31/25 20:45 Morphine Sulfate 2 mg Q30M PRN IV 05/31/25 20:45 Atorvastatin Calcium 10 mg HS PO 06/01/25 22:00 06/01/25 22:19 10 MG Metoprolol Succinate 12.5 mg DAILY PO 06/01/25 10:00 06/02/25 09:02 12.5 MG Albuterol 2.5 mg Q6HPRN PRN NEB 05/31/25 23:45 Acetaminophen/ Hydrocodone Bitart 1 tab Q4HP PRN PO 05/31/25 23:45 Ondansetron HCl 4 mg Q4HP PRN IV 05/31/25 23:45 Acetaminophen 650 mg Q6HP PRN PO 05/31/25 23:45 Pantoprazole Sodium 40 mg BID IV 06/01/25 22:00 06/02/25 09:01 40 MG Furosemide 20 mg DAILY IV 06/02/25 10:00 Apixaban 10 mg BID PO 06/02/25 22:00 06/09/25 21:59 UNV Apixaban 5 mg BID PO 06/02/25 22:00 UNV Laboratory Results Laboratory Tests 06/01/25 05:42 06/02/25 05:28 Urinalysis Test 05/31/25 23:34 Urine Color Yellow (Yellow) Urine Clarity Clear (Clear) Urine pH 7.0 (5.0-9.0) Urine Specific [place] 1.045 (1.001-1.035) Urine Protein Negative (Negative) Urine Ketones Trace (Negative) Urine Blood Negative /uL (Negative) Urine Nitrite Negative (Negative) Urine Bilirubin Negative (Negative) Urine Urobilinogen 2 mg/dL (Negative) H Urine Leukocyte Esterase Negative /uL (Negative) Urine Glucose Normal mg/dL (Normal) Labs and/or images reviewed: Labs reviewed by me, Image(s) reviewed by me Assessment/Plan Assessment/Plan Impression: -acute hypoxic respiratory failure -pulmonary embolism -rule out DVT -morbid obesity -diabetes mellitus, new diagnosis -rule out congestive heart failure -rule out GI bleed, -anemia Plan: Events: Patient has persistent hypoxia. 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 Room air ABG pending -echocardiogram pending -DVT study : Negative for DVT -continue full-dose anticoagulation : Switched to Eliquis -PPI -pulmonary consultation -weaned off O2 supplementation to keep saturation greater than 93% -repeat labs in a.m. Total time spent with patient discussing and formulating plan of care: 35 minutes. This medical document was created using an electronic medical record system with [email or web address] dictation system. Although this document has been carefully reviewed, there may still be some phonetic and typographical errors. These areas are purely typographical due to imperfections of the software programs, and do not reflect any compromise in the patient's medical care. Plan discussed with: Patient, Other (RN) My Orders Orders - CATHI CASIANO NP Procedure Category Date Status Time Bilat Lower Dvt US 06/01/25 Resulted 13:12 Stool Occult Blood LAB 06/01/25 Logged 15:47 Pantoprazole PHA 06/01/25 In Process (Protonix) 22:00 Furosemide Injection PHA 06/02/25 In Process (Lasix Injection) 10:00 Communication Order ORDERS 06/02/25 Transmitted 08:36 Abg W/ Co-Ox RT 06/02/25 Logged 11:27 Apixaban (Eliquis) PHA 06/02/25 Logged 22:00 Apixaban (Eliquis) PHA 06/02/25 Logged 22:00 Basic Metabolic Panel LAB 06/03/25 Verified 04:00 Hemoglobin & LAB 06/03/25 Verified Hematocrit 04:00 Pt Request For Service PT 06/02/25 Logged 11:32 Abg W/ Co-Ox RT 06/02/25 Verified 11:42 *Consult CONS 06/02/25 Verified 11:42 Date of Service: Jun 02, 2025 Billing Provider: CATHI CASIANO NP Common Visit Codes: [id number] INP/OBS CARE(HIGH) CATHI CASIANO NP Jun 02, 2025 11:46
[2025-06-02 12:24] LABS: Base Excess 0.5 mmol/L (-2.0-3.0)
[2025-06-02] MEDS: FUROSEMIDE 20 MG/2 ML VIAL IV SCH (12:27)
--- NOTE | 2025-06-02 21:07 | DVHINCON2 ---
Date of service: Jun 02, 2025 Referring Physician ESTELLA Arteaga Reason for Consultation Acute hypoxic respiratory failure and pulmonary embolism History of Present Illness This is a 74-year-old man with no significant past medical history, who presented to ED on 05/31/25 with chief complaint of shortness of breath. The patient reports that symptoms began at approximately 3:00 p.m.on 05/31/25 with sudden onset. He reports experiencing this shortness of breath only on exertion. He denied any chest pain, palpitations, or dizziness. The patient and his son became concerned prompting them to call EMS. Workup revealed questionable heart failure. Initial twelve lead electrocardiogram revealed sinus tachycardia with PVCs (S1Q3T3 pattern noted). Initial troponin level of 6 ng/L with down trend. The patient denies any past medical history but also reports he has not seen a primary care physician and approximately 30 years. Patient was admitted for further care. Pulmonary consultation is requested for evaluation and management of acute hypoxic respiratory failure and pulmonary embolism. Review of Systems: 14-point review of systems negative unless otherwise noted above. Past Medical History: Denies Past Surgical History: Right meniscus repair Medications: Reviewed. Allergies: No known drug allergies. Family History: No family history of premature CAD. No family history of lung disorders. Social History: Nonsmoker. No alcohol or illicit drug use. Family History: Patient reports no known family medical history. Allergies: Coded Allergies: NO KNOWN ALLERGIES (Unverified , 05/31/25) Home Meds No Active Prescriptions or Reported Meds Current Medications Current Medications Medications (Trade) Dose Ordered Sig/Judi Route PRN Reason Start Time Stop Time Status Last Admin Atorvastatin Calcium (Lipitor) 10 mg HS PO 06/01/25 22:00 06/01/25 22:19 Pantoprazole Sodium (Protonix) 40 mg BID IV 06/01/25 22:00 06/02/25 09:01 Furosemide (Lasix Injection) 20 mg DAILY IV 06/02/25 10:00 06/02/25 12:27 Apixaban (Eliquis) 10 mg BID PO 06/02/25 22:00 06/09/25 21:59 Apixaban (Eliquis) 5 mg BID PO 06/09/25 22:00 Vital Signs Vital Signs Date Time Temp Pulse Resp B/P (MAP) Pulse Ox O2 Delivery O2 Flow Rate FiO2 06/02/25 18:31 92 Oxymizer 8 N/A 06/02/25 16:49 97.8 88 18 127/71 (89) 97.8 Physical Exam Gen.: Patient lying in bed in no apparent distress. On supplemental oxygen. Head: Normocephalic, atraumatic. Eyes: EOMI/PERRLA. Ears: Normal hearing. Normal anatomy. Neck/trachea: Trachea midline, supple. Nose: Normal external anatomy. Mouth: Moist mucous membranes. Chest: Decreased air entry bilaterally. No wheezing or rhonchi. Cardiovascular: Positive S1, positive S2. Regular rate and rhythm. Abdomen: Positive bowel sounds in all 4 quadrants. Soft, non-tender, non- distended. : Deferred. Rectal: Deferred. Skin: Warm, dry. Intact. Extremities: 2+ radial pulses bilaterally. No lower extremity edema. Neuro: Awake, alert, oriented x3. No gross motor or sensory deficits. Cranial nerves II through XII intact. Gait not assessed. Labs/Diagnostic Data Labs Test 06/02/25 11:51 06/02/25 05:28 06/01/25 15:16 06/01/25 12:16 Range/Units Blood Gas Specimen Type Arterial Blood Gas Sample Site Left radial Blood Gas Patient Temperature 37.0 Arterial Blood Date Drawn [id number] Arterial Blood pH 7.458 H 7.350-7.450 Arterial Blood Partial Pressure CO2 35.0 35.0-48.0 mmHg Arterial Blood Partial Pressure O2 48.8 *L 83.0-108.0 mmHg Arterial Blood HCO3 24.2 21.0-28.0 mmol/L Arterial Blood Oxygen Saturation 82.9 *L 94.0-98.0 % Arterial Blood Base Excess 0.5 -2.0-3.0 mmol/L Arterial Blood Oxyhemoglobin 82.2 L 94.0-98.0 % Arterial Blood Carboxyhemoglobin 0.6 0.5-1.5 % Arterial Blood Methemoglobin 0.3 0.0-1.5 % Oc Test Yes Blood Gas Total Hemoglobin 9.00 L 13.5-17.5 g/dL Blood Gas Modality Room air FiO2 % 21.0 Blood Gas Critical Value Read Back Yes Blood Gas Notified Whom autumn Arteaga np Blood Gas Notified Time [id number] Blood Gas Notified By Froilan arrieta rrt White Blood Count 8.9 4.4-10.8 10^3/uL Red Blood Count 2.58 L 4.5-5.90 10^6/uL Hemoglobin 8.4 L 13.5-17.5 g/dL Hematocrit 25.0 L 41.0-53.0 % Mean Corpuscular Volume 96.9 80.0-100.0 fL Mean Corpuscular Hemoglobin 32.5 H 28.0-32.0 pg Mean Corpuscular Hemoglobin Concent 33.6 32.0-36.0 g/dL Red Cell Distribution Width 15.1 H 11.8-14.3 % Platelet Count 264 140-450 10^3/uL Mean Platelet Volume 7.4 6.9-10.8 fL Neutrophils (%) (Auto) 63.1 37.0-80.0 % Lymphocytes (%) (Auto) 27.2 10.0-50.0 % Monocytes (%) (Auto) 7.7 0.0-12.0 % Eosinophils (%) (Auto) 1.5 0.0-7.0 % Basophils (%) (Auto) 0.5 0.0-2.0 % Neutrophils # (Auto) 5.6 1.6-8.6 10 ^3/uL Lymphocytes # (Auto) 2.4 0.4-5.4 10 ^3/uL Monocytes # (Auto) 0.7 0-1.3 10 ^3/uL Eosinophils # (Auto) 0.1 0-0.8 10 ^3/uL Basophils # (Auto) 0 0-0.2 10 ^3/uL Nucleated Red Blood Cells 0.1 % Free Prostate Specific Antigen 0.34 N/A ng/mL Percent Free Prostate Specific Ag 14.2 . % Prostate Specific Antigen Total 2.4 0.0-4.0 ng/mL POC Glucose 189 H 70-106 mg/dl Test 06/01/25 05:42 05/31/25 23:39 05/31/25 23:34 05/31/25 19:43 Range/Units Erythrocyte Sedimentation Rate 21 H 0-20 mm/hr Sodium Level 142 136-145 mmol/L Potassium Level 4.4 3.5-5.1 mmol/L Chloride Level 107 98-107 mmol/L Carbon Dioxide Level 28 20-31 mmol/L Anion Gap 7 5-15 Blood Urea Nitrogen 12 9-23 mg/dL Creatinine 0.66 L 0.700-1.30 mg/dL Glomerular Filtration Rate Calc 98 >90 mL/min BUN/Creatinine Ratio 18.2 10.0-20.0 Serum Glucose 128 H 74-106 mg/dL Calcium Level 8.0 L 8.7-10.4 mg/dL Magnesium Level 2.0 1.6-2.6 mg/dL Lactate Dehydrogenase 144 120-246 U/L C-Reactive Protein High Sensitivity 2.05 H <1.0 mg/dL Carcinoembryonic Antigen 1.07 <=5.0 ng/mL Urine Opiates Screen Neg NEGATIVE Urine Fentanyl Screen Neg NEGATIVE Urine Barbiturates Screen Neg NEGATIVE Urine Phencyclidine Screen Neg NEGATIVE Urine Amphetamines Screen Neg NEGATIVE Urine Benzodiazepines Screen Neg NEGATIVE Urine Cocaine Screen Neg NEGATIVE Urine Cannabinoids Screen Neg NEGATIVE Urine Color Yellow Yellow Urine Clarity Clear Clear Urine pH 7.0 5.0-9.0 Urine Specific [place] 1.045 H 1.001-1.035 Urine Protein Negative Negative Urine Ketones Trace Negative Urine Blood Negative Negative /uL Urine Nitrite Negative Negative Urine Bilirubin Negative Negative Urine Urobilinogen 2 H Negative mg/dL Urine Leukocyte Esterase Negative Negative /uL Urine Glucose Normal Normal mg/dL Troponin I High Sensitivity 4 </=54 ng/L Triglycerides Level 90 < 150 mg/dL Cholesterol Level 116 < 200 mg/dL LDL Cholesterol 79 < 100 mg/dL HDL Cholesterol 35 L 40-59 mg/dL Thyroid Stimulating Hormone (TSH) 1.50 0.55-4.78 uIU/mL Test 05/31/25 18:50 Range/Units D-Dimer, Quantitative 3.75 H 0.0-0.49 mg/L FEU Hemoglobin A1c 6.7 H <5.7 % A1C Total Bilirubin 0.4 0.2-1.0 mg/dL Aspartate Amino Transferase (AST) 26 13-40 U/L Alanine Aminotransferase (ALT) 23 7-40 U/L Alkaline Phosphatase 79 46-116 U/L B-Type Natriuretic Peptide 99.00 0-100 pg/mL Total Protein 6.9 5.7-8.2 g/dL Albumin 3.9 3.2-4.8 g/dL Assessment Impression: Acute hypoxic respiratory failure Dependence on supplemental oxygen Pulmonary embolism Ruled out DVT Diabetes mellitus Environmental exposure Snoring Morbid obesity, BMI 44.3 Plan: Supplemental oxygen Titrate to keep O2 sats above 92%. Currently, on supplemental oxygen 8 LPM Oxymizer Taper O2 as tolerated. Ultrasound of BLE venous Doppler revealed no right or left femoropopliteal venous thrombosis. Chest CT angio with contrast reviewed, demonstrated questionable small embolism at the distal left inferior lobar and proximal subsegmental branches. No evidence of right heart strain. Peripheral pulmonary arterial enlargement and basilar ground-glass attenuation suggesting mild heart failure. No focal consolidation. CXR reviewed, demonstrated left basilar opacity, likely atelectasis left trace pleural effusion. Complete 3 months course of Eliquis Bronchodilators. Incentive spirometry F/u ECHO results Cardiology recommendations appreciated Glycemic control Recommend outpatient sleep study as patient is at high risk of KJ Avoid chemicals Wear PPE Diurese with Lasix as tolerated Monitor renal function. Monitor electrolytes. Supplement as necessary. Monitor ins and outs. Recommend diet and lifestyle modifications for weight reduction Obesity complicates all care DVT prophylaxis - Eliquis GI prophylaxis - PPI Prognosis:Poor given patient's multiple co-morbidities. Rest of plan per hospitalist and other consultants. Thank you, ESTELLA Arteaga for allowing me to participate in this patient's care. Further recommendations will depend on the patient's clinical course. Please do not hesitate to contact me if you have any questions or concerns. This medical document was created using an electronic medical record system with [employer] computerized dictation system. Although these documentations are being carefully reviewed, there may still be some phonetic and typographical changes. The errors are purely typographical, due to imperfection on the software program, and do not reflect any compromise in the patient's medical care. Plan discussed with: Patient, Other (TEO Luong/) Visit Coding Pulmonary Billing Provider: MARKO HUYNH MD Date of Service if different f: Jun 02, 2025 Common Visit Codes: [id number] INP/OBS CARE (HIGH) MARKO HUYNH MD Jun 02, 2025 21:07
[2025-06-02] MEDS: APIXABAN 5 MG TAB PO SCH (21:32)
[2025-06-03] VITALS (11 sets, daily range): BP systolic 113–141; BP diastolic 66–92; PULSE 67–89; RESP 17–21; TEMP 97.1–98; O2SAT 92–98
[2025-06-03 06:50] LABS: Hematocrit 22.9 % (41.0-53.0); Hemoglobin 7.7 g/dL (13.5-17.5)
[2025-06-03 07:15] LABS: Anion Gap 9 (5-15); Carbon Dioxide 29 mmol/L (20-31); Chloride 104 mmol/L (98-107); Potassium 3.7 mmol/L (3.5-5.1); Sodium 142 mmol/L (136-145)
[2025-06-03 07:21] LABS: BUN/Creatinine Ratio 26.6 (10.0-20.0); Blood Urea Nitrogen 21 mg/dL (9-23)
[2025-06-03 07:23] LABS: Calcium 7.9 mg/dL (8.7-10.4); Glucose 126 mg/dL (74-106)
--- NOTE | 2025-06-03 14:10 | DVHPN2 ---
Subjective Reports improvement with Respiratory Status Reviewed: Care Plan, H&P, Labs, Medications Changes from previous H/P or p: No Changes General: Per HPI Objective Vitals Vital Signs Date Time Temp Pulse Resp B/P (MAP) Pulse Ox O2 Delivery O2 Flow Rate FiO2 06/03/25 10:35 67 115/66 06/03/25 09:00 97.1 17 93 97.1 06/03/25 08:01 Simple Mask* 8 60 Intake/Output Intake and Output 06/03/25 06:59 Intake Total 1460 ml Output Total 2300 ml Balance -840 ml Intake Oral 1460 ml Output Urine Total 2300 ml General Appearance: Alert, Oriented X3, Cooperative, No acute distress HEENT: Atraumatic, PERRLA Lungs: Clear to auscultation, Normal air movement Cardiovascular: Normal S1, Normal S2 Abdomen: Normal bowel sounds, Soft, No tenderness, No hepatospenomegaly, No masses Rectal: Normal inspection Back: Flank Tenderness, Midline Tenderness Musculoskeletal: Normal sensory function, Normal motor function Skin: Dry, Intact Psych/Mental Status: Mental status NL, Mood NL Medications Current Medications Medications Dose Ordered Sig/Judi Route Start Time Stop Time Status Last Admin Dose Admin Nitroglycerin 0.4 mg Q5MINP PRN SL 05/31/25 20:45 Morphine Sulfate 2 mg Q30M PRN IV 05/31/25 20:45 Atorvastatin Calcium 10 mg HS PO 06/01/25 22:00 06/02/25 21:32 10 MG Metoprolol Succinate 12.5 mg DAILY PO 06/01/25 10:00 06/03/25 10:35 12.5 MG Albuterol 2.5 mg Q6HPRN PRN NEB 05/31/25 23:45 Acetaminophen/ Hydrocodone Bitart 1 tab Q4HP PRN PO 05/31/25 23:45 Ondansetron HCl 4 mg Q4HP PRN IV 05/31/25 23:45 Acetaminophen 650 mg Q6HP PRN PO 05/31/25 23:45 Pantoprazole Sodium 40 mg BID IV 06/01/25 22:00 06/03/25 10:34 40 MG Furosemide 20 mg DAILY IV 06/02/25 10:00 06/03/25 10:33 20 MG Apixaban 10 mg BID PO 06/02/25 22:00 06/09/25 21:59 06/03/25 10:34 10 MG Apixaban 5 mg BID PO 06/09/25 22:00 Albuterol 2.5 mg Q6HWA [facility] 06/03/25 18:00 Ipratropium [place] 0.5 mg Q6HWA [facility] 06/03/25 18:00 Budesonide 0.5 mg BID NEB 06/03/25 22:00 Laboratory Results Laboratory Tests 06/02/25 05:28 06/03/25 06:13 Chemistry Test 06/03/25 06:13 Calcium Level 7.9 mg/dL (8.7-10.4) L Urinalysis Test 05/31/25 23:34 Urine Color Yellow (Yellow) Urine Clarity Clear (Clear) Urine pH 7.0 (5.0-9.0) Urine Specific [place] 1.045 (1.001-1.035) Urine Protein Negative (Negative) Urine Ketones Trace (Negative) Urine Blood Negative /uL (Negative) Urine Nitrite Negative (Negative) Urine Bilirubin Negative (Negative) Urine Urobilinogen 2 mg/dL (Negative) H Urine Leukocyte Esterase Negative /uL (Negative) Urine Glucose Normal mg/dL (Normal) Labs and/or images reviewed: Labs reviewed by me, Image(s) reviewed by me Assessment/Plan Assessment/Plan Impression: -acute hypoxic respiratory failure -pulmonary embolism -rule out DVT -morbid obesity -diabetes mellitus, new diagnosis -rule out congestive heart failure -rule out GI bleed, -anemia Plan: Events: No events overnight -[place] nasal spray -echocardiogram pending -DVT study : Negative for DVT -continue full-dose anticoagulation : Switched to Eliquis -PPI -pulmonary consultation -Social service consult for home O2 -repeat labs in a.m. Total time spent with patient discussing and formulating plan of care: 35 minutes. This medical document was created using an electronic medical record system with [employer] dictation system. Although this document has been carefully reviewed, there may still be some phonetic and typographical errors. These areas are purely typographical due to imperfections of the software programs, and do not reflect any compromise in the patient's medical care. Plan discussed with: Patient, Other (RN) My Orders Orders - CATHI CASIANO NP Procedure Category Date Status Time Dietary NOTICE 06/03/25 Transmitted Recommendations 12:30 Albuterol Medneb PHA 06/03/25 In Process (Ventolin Medneb) 18:00 Ipratropium Medneb PHA 06/03/25 In Process (Atrovent Medneb) 18:00 Budesonide PHA 06/03/25 In Process (Inhalation) 22:00 Date of Service: Jun 03, 2025 Billing Provider: CATHI CASIANO NP Common Visit Codes: [id number] INP/OBS CARE(HIGH) CATHI CASIANO NP Jun 03, 2025 14:10
--- NOTE | 2025-06-03 16:39 | DVHSR ---
APPROVED REPORT EXAM: LIMITED Two-dimensional echocardiogram. Blood Pressure: 135/76 mmHg INDICATION EEF RISK FACTORS Obesity: Height: 5' 11", Weight: 326 DIMENSIONS LVDd5.1 (3.8-5.7cm)LA (2D) (1.9-4.0cm)Aortic Root (2.0-3.7cm) LVDs3.9 (2.5-4.0cm)LA (MM) (1.9-4.0cm)Aortic Cusp Exc (1.5-2.0cm) EF (%) 50.0 (55-70%)Rt. Atrium (1.9-4.0cm)Asc. Aorta cm IVSd1.5 (0.7-1.1cm)RV (D) (1.8-2.4cm) PWd1.5 (0.7-1.1cm) Mitral Valve MitralMitral Stenosis E/A ratio0.02D MVAcm2 Aortic Valve Aortic ValveAortic Stenosis LVOT Diameter2.5 (1.8-2.4cm)Doppler AVAcm2 Tricuspid Valve TR Velocity2.09m/s [id number] Other Information Quality : Technically LimitedRhythm : Technically limited study due to body habitus and patient position. Conclusion Technically good study. Sinus rhythm. Difficult acoustic windows. Concentric LVH. From the limited views obtained there appears to be normal chamber sizes otherwise noted. Valves appear to be structurally normal. Left ventricular systolic performance is preserved at 60% with normal RV function. Dopplers unremarkable. Mild TR. No pericardial effusion masses or vegetations.
[2025-06-03] MEDS: IPRATROPIUM BROM 0.5 MG/2.5ML INH SOL NEB SCH (18:55)
[2025-06-03] MEDS: ALBUTEROL SULF 2.5 MG/0.5ML(0.5%) NEB SOLN NEB SCH (18:55)
[2025-06-03] MEDS: BUDESONIDE (INHALATION) 0.5 MG/2 ML NEB NEB SCH (18:57)
--- NOTE | 2025-06-03 20:42 | DVHPN2 ---
Subjective DOS: 06/03/2025 Patient seen and examined at bedside. Remains on supplemental oxygen Overnight events reviewed. Reviewed: Care Plan, H&P, Labs, Medications Changes from previous H/P or p: No Changes General: Per HPI Objective Vitals Vital Signs Date Time Temp Pulse Resp B/P (MAP) Pulse Ox O2 Delivery O2 Flow Rate FiO2 06/03/25 19:03 83 18 98 06/03/25 18:55 Simple Mask* 8 60 06/03/25 17:00 97.1 141/83 (102) 97.1 Intake/Output Intake and Output 06/03/25 06:59 Intake Total 1460 ml Output Total 2300 ml Balance -840 ml Intake Oral 1460 ml Output Urine Total 2300 ml General Appearance: Alert, Oriented X3, Cooperative, No acute distress HEENT: Atraumatic, PERRLA Lungs: Clear to auscultation, Other (Decreased air entry bilaterally.) Cardiovascular: Normal S1, Normal S2 Abdomen: Normal bowel sounds, Soft, No tenderness, No hepatospenomegaly, No masses Rectal: Normal inspection Back: Flank Tenderness, Midline Tenderness Musculoskeletal: Normal sensory function, Normal motor function Skin: Dry, Intact Psych/Mental Status: Mental status NL, Mood NL Medications Current Medications Medications Dose Ordered Sig/Judi Route Start Time Stop Time Status Last Admin Dose Admin Nitroglycerin 0.4 mg Q5MINP PRN SL 05/31/25 20:45 Morphine Sulfate 2 mg Q30M PRN IV 05/31/25 20:45 Atorvastatin Calcium 10 mg HS PO 06/01/25 22:00 06/02/25 21:32 10 MG Metoprolol Succinate 12.5 mg DAILY PO 06/01/25 10:00 06/03/25 10:35 12.5 MG Albuterol 2.5 mg Q6HPRN PRN NEB 05/31/25 23:45 Acetaminophen/ Hydrocodone Bitart 1 tab Q4HP PRN PO 05/31/25 23:45 Ondansetron HCl 4 mg Q4HP PRN IV 05/31/25 23:45 Acetaminophen 650 mg Q6HP PRN PO 05/31/25 23:45 Pantoprazole Sodium 40 mg BID IV 06/01/25 22:00 06/03/25 10:34 40 MG Furosemide 20 mg DAILY IV 06/02/25 10:00 06/03/25 10:33 20 MG Apixaban 10 mg BID PO 06/02/25 22:00 06/09/25 21:59 06/03/25 10:34 10 MG Apixaban 5 mg BID PO 06/09/25 22:00 Albuterol 2.5 mg Q6HWA [facility] 06/03/25 18:00 06/03/25 18:55 2.5 MG Ipratropium [place] 0.5 mg Q6HWA [facility] 06/03/25 18:00 06/03/25 18:55 0.5 MG Budesonide 0.5 mg BID [facility] 06/03/25 22:00 06/03/25 18:57 0.5 MG Laboratory Results Laboratory Tests 06/02/25 05:28 06/03/25 06:13 Chemistry Test 06/03/25 06:13 Calcium Level 7.9 mg/dL (8.7-10.4) L Urinalysis Test 05/31/25 23:34 Urine Color Yellow (Yellow) Urine Clarity Clear (Clear) Urine pH 7.0 (5.0-9.0) Urine Specific [place] 1.045 (1.001-1.035) Urine Protein Negative (Negative) Urine Ketones Trace (Negative) Urine Blood Negative /uL (Negative) Urine Nitrite Negative (Negative) Urine Bilirubin Negative (Negative) Urine Urobilinogen 2 mg/dL (Negative) H Urine Leukocyte Esterase Negative /uL (Negative) Urine Glucose Normal mg/dL (Normal) Assessment/Plan Assessment/Plan Impression: Acute hypoxic respiratory failure Dependence on supplemental oxygen Pulmonary embolism Ruled out DVT Diabetes mellitus Environmental exposure Snoring Morbid obesity, BMI 44.3 Events: Remains on supplemental oxygen, 8 LPM simple mask Taper O2 as tolerated Continue bronchodilators Pulmicort BID Incentive spirometry Continue anticoagulation with Eliquis PO BID Follow up Cardiology recommendations Diurese with Lasix Monitor renal function. Monitor electrolytes. Supplement as necessary. Protonix for GI ppx Labs and imaging reviewed. Rest of plan as noted below. Plan: Supplemental oxygen Titrate to keep O2 sats above 92%. Ultrasound of BLE venous Doppler revealed no right or left femoropopliteal venous thrombosis. Chest CT angio with contrast reviewed, demonstrated questionable small embolism at the distal left inferior lobar and proximal subsegmental branches. No evidence of right heart strain. Peripheral pulmonary arterial enlargement and basilar ground-glass attenuation suggesting mild heart failure. No focal consolidation. CXR reviewed, demonstrated left basilar opacity, likely atelectasis, left trace pleural effusion. Complete 3 months course of Eliquis Bronchodilators. Incentive spirometry F/u ECHO results Cardiology recommendations appreciated Glycemic control Recommend outpatient sleep study as patient is at high risk of KJ Hx of environmental exposures - Avoid chemicals; wear PPE Diurese with Lasix as tolerated Monitor renal function. Monitor electrolytes. Supplement as necessary. Monitor ins and outs. Recommend diet and lifestyle modifications for weight reduction Obesity complicates all care DVT prophylaxis - Eliquis GI prophylaxis - Protonix Prognosis:Poor given patient's multiple co-morbidities. Rest of plan per hospitalist and other consultants. Thank you, ESTELLA Arteaga for allowing me to participate in this patient's care. Further recommendations will depend on the patient's clinical course. Please do not hesitate to contact me if you have any questions or concerns. This medical document was created using an electronic medical record system with [employer] dictation system. Although these documentations are being carefully reviewed, there may still be some phonetic and typographical changes. The errors are purely typographical, due to imperfection on the software program, and do not reflect any compromise in the patient's medical care. Plan discussed with: Patient, Other (TEO Jack) Visit Coding Pulmonary Billing Provider: MARKO HUYNH MD Date of Service if different f: Jun 03, 2025 Common Visit Codes: [id number] INP/OBS CARE(HIGH) MARKO HYUNH MD Jun 03, 2025 20:42
[2025-06-04] VITALS (14 sets, daily range): BP systolic 107–132; BP diastolic 65–86; PULSE 68–92; RESP 12–20; TEMP 97.4–98.3; O2SAT 92–98
--- NOTE | 2025-06-04 11:26 | DVHPN2 ---
Subjective Still short of breaths Reviewed: Care Plan, H&P, Labs, Medications, Previous Orders, Radiology Changes from previous H/P or p: No Changes General: Per HPI Objective Vitals Vital Signs Date Time Temp Pulse Resp B/P (MAP) Pulse Ox O2 Delivery O2 Flow Rate FiO2 06/04/25 10:48 131/86 06/04/25 10:47 84 06/04/25 09:00 97.4 18 96 97.4 06/04/25 07:15 Mask 10.0 06/04/25 07:15 99 Intake/Output Intake and Output 06/04/25 06:59 Intake Total 300 ml Output Total 750 ml Balance -450 ml Intake Oral 300 ml Output Urine Total 750 ml General Appearance: Alert, Oriented X3, Cooperative HEENT: Atraumatic Lungs: Other (Few crackles bilateral lower patel) Cardiovascular: Regular rate Abdomen: Normal bowel sounds, Soft, No tenderness Extremities: Other (One to 2+ edema bilateral lower extremities) Psych/Mental Status: Mental status NL, Mood NL Medications Current Medications Medications Dose Ordered Sig/Judi Route Start Time Stop Time Status Last Admin Dose Admin Nitroglycerin 0.4 mg Q5MINP PRN SL 05/31/25 20:45 Morphine Sulfate 2 mg Q30M PRN IV 05/31/25 20:45 Atorvastatin Calcium 10 mg HS PO 06/01/25 22:00 06/03/25 21:10 10 MG Metoprolol Succinate 12.5 mg DAILY PO 06/01/25 10:00 06/04/25 10:47 12.5 MG Albuterol 2.5 mg Q6HPRN PRN NEB 05/31/25 23:45 Acetaminophen/ Hydrocodone Bitart 1 tab Q4HP PRN PO 05/31/25 23:45 Ondansetron HCl 4 mg Q4HP PRN IV 05/31/25 23:45 Acetaminophen 650 mg Q6HP PRN PO 05/31/25 23:45 Pantoprazole Sodium 40 mg BID IV 06/01/25 22:00 06/04/25 10:47 40 MG Apixaban 10 mg BID PO 06/02/25 22:00 06/09/25 21:59 06/04/25 10:45 10 MG Apixaban 5 mg BID PO 06/09/25 22:00 Albuterol 2.5 mg Q6HWA NEB 06/03/25 18:00 06/04/25 07:15 2.5 MG Ipratropium [place] 0.5 mg Q6HWA NEB 06/03/25 18:00 06/04/25 07:15 0.5 MG Budesonide 0.5 mg BID NEB 06/03/25 22:00 06/04/25 07:15 0.5 MG Furosemide 20 mg BID IV 06/04/25 11:30 UNV Potassium Bicarbonate 25 meq BID PO 06/04/25 22:00 UNV Doxycycline Monohydrate 100 mg Q12HR PO 06/04/25 22:00 UNV Laboratory Results Laboratory Tests 06/02/25 05:28 06/03/25 06:13 Cardiac Markers Test 06/04/25 11:08 B-Type Natriuretic Peptide Pending Urinalysis Test 05/31/25 23:34 Urine Color Yellow (Yellow) Urine Clarity Clear (Clear) Urine pH 7.0 (5.0-9.0) Urine Specific [place] 1.045 (1.001-1.035) Urine Protein Negative (Negative) Urine Ketones Trace (Negative) Urine Blood Negative /uL (Negative) Urine Nitrite Negative (Negative) Urine Bilirubin Negative (Negative) Urine Urobilinogen 2 mg/dL (Negative) H Urine Leukocyte Esterase Negative /uL (Negative) Urine Glucose Normal mg/dL (Normal) Assessment/Plan Assessment/Plan Acute respiratory failure with hypoxemia Questionable small PE in the left lower lobe that does not explain the hypoxemia Possible heart failure LVH Mild tricuspid regurgitation Morbid obesity Diabetes/Gloria Anemia of unclear etiology/repeat H&H to monitor for stability Plan: We will check H&H. If keeps on dropping then we will have to stop Eliquis. Order V/Q scan. Further plan per orders Plan discussed with: Patient My Orders Orders - CASTRO CARTER MD Procedure Category Date Status Time Nm Vq Scan NM 06/04/25 Logged 09:36 Hemoglobin & LAB 06/04/25 In Process Hematocrit 09:36 Hemoglobin & LAB 06/04/25 Logged Hematocrit 15:36 Hemoglobin & LAB 06/04/25 Logged Hematocrit 21:36 Chest Portable XY 06/04/25 Logged 09:36 B-Type Natriuretic LAB 06/04/25 In Process Peptide 09:36 Furosemide Injection PHA 06/04/25 Transmitted (Lasix Injection) 11:30 Potassium Effervesent PHA 06/04/25 Transmitted Tab (Klor-Con/Ef) 22:00 Doxycycline Tablet PHA 06/04/25 Transmitted (Vibramycin Tablet) 22:00 Doxycycline Tablet PHA 06/04/25 Transmitted (Vibramycin Tablet) 11:30 Date of Service: Jun 04, 2025 Billing Provider: CASTRO CARTER MD Common Visit Codes: [id number] INP/OBS CARE(HIGH) CASTRO CARTER MD Jun 04, 2025 11:26
[2025-06-04 11:34] LABS: Hematocrit 25.4 % (41.0-53.0); Hemoglobin 8.1 g/dL (13.5-17.5)
[2025-06-04] MEDS: DOXYCYCLINE 100 MG TAB/CAP PO ONE (12:16)
--- NOTE | 2025-06-04 12:48 | DVH ---
CLINICAL HISTORY: Follow-up. TECHNIQUE: Single view of the chest was obtained. COMPARISON: CT CT ANGIO CHEST CONTRAST on DOS: 05/31/25, XY CHEST PORTABLE on DOS: 05/31/25 FINDINGS: The heart size and pulmonary vasculature are normal. There is mild left basilar atelectasis. IMPRESSION: Mild left basilar atelectasis.
[2025-06-04 15:30] LABS: Hematocrit 25.2 % (41.0-53.0); Hemoglobin 8.2 g/dL (13.5-17.5)
--- NOTE | 2025-06-04 16:08 | DVHPN2 ---
Progress Note - Dictate Date Seen: Jun 04, 2025 Has the PT tested + for MRSA If YES, has PT been informed?: No Medical Necessity Reason Pt with a Central, PICC or Fol: No vital signs Vital Sign Date Time Temp Pulse Resp B/P (MAP) Pulse Ox O2 Delivery O2 Flow Rate FiO2 06/04/25 13:00 98.2 85 19 127/73 (91) 98 98.2 06/04/25 11:27 Simple Mask* 10 99 Total Intake and Output 06/03/25 06/03/25 06/04/25 15:00 23:00 07:00 Intake Total 300 ml 0 ml Output Total 400 ml 350 ml Balance -100 ml -350 ml medications Current Medications Medications Dose Ordered Sig/Judi Route Start Time Stop Time Status Last Admin Dose Admin Nitroglycerin 0.4 mg Q5MINP PRN SL 05/31/25 20:45 Morphine Sulfate 2 mg Q30M PRN IV 05/31/25 20:45 Atorvastatin Calcium 10 mg HS PO 06/01/25 22:00 06/03/25 21:10 10 MG Metoprolol Succinate 12.5 mg DAILY PO 06/01/25 10:00 06/04/25 10:47 12.5 MG Albuterol 2.5 mg Q6HPRN PRN NEB 05/31/25 23:45 Acetaminophen/ Hydrocodone Bitart 1 tab Q4HP PRN PO 05/31/25 23:45 Ondansetron HCl 4 mg Q4HP PRN IV 05/31/25 23:45 Acetaminophen 650 mg Q6HP PRN PO 05/31/25 23:45 Pantoprazole Sodium 40 mg BID IV 06/01/25 22:00 06/04/25 10:47 40 MG Apixaban 10 mg BID PO 06/02/25 22:00 06/09/25 21:59 06/04/25 10:45 10 MG Apixaban 5 mg BID PO 06/09/25 22:00 Albuterol 2.5 mg Q6HWA NEB 06/03/25 18:00 06/04/25 11:27 2.5 MG Ipratropium [place] 0.5 mg Q6HWA NEB 06/03/25 18:00 06/04/25 11:27 0.5 MG Budesonide 0.5 mg BID NEB 06/03/25 22:00 06/04/25 07:15 0.5 MG Furosemide 20 mg BIDD IV 06/04/25 18:00 Potassium Bicarbonate 25 meq BID PO 06/04/25 22:00 Doxycycline Monohydrate 100 mg Q12HR PO 06/04/25 22:00 laboratory and microbiology Laboratory Tests 06/04/25 15:10 06/03/25 06:13 06/02/25 05:28 Test 06/03/25 06:13 Range/Units Serum Glucose 126 H 74-106 mg/dL Assessment/Plan Acute hypoxic respiratory failure Dependence on supplemental oxygen Pulmonary embolism Ruled out DVT Diabetes mellitus Environmental exposure Snoring Morbid obesity, BMI 44.3 Events: pt on 6lpm 02 no active complaints Plan: Supplemental oxygen Titrate to keep O2 sats above 92%. cont Eliquis Bronchodilators. Incentive spirometry Glycemic control Diurese with Lasix as tolerated Monitor renal function. Monitor electrolytes. Supplement as necessary. Monitor ins and outs. Recommend diet and lifestyle modifications for weight reduction Obesity complicates all care DVT prophylaxis - Eliquis GI prophylaxis - Protonix Prognosis:Poor given patient's multiple co-morbidities. Dietary Evaluation Review Comments: Nutrition Recommendation: 1) CCHO 75gm + cardiac diet 2) Refer Managed Care Analyst for diabetes education 3) Monitor PO intake, lab values, weight trend, and I/O Expected Outcomes/Goals: To meet >75% estimated needs Lab values to improve Fu 3-5 days Plan discussed with: Patient CARLO ZARAGOZA MD Jun 04, 2025 16:08
[2025-06-04] MEDS: FUROSEMIDE 20 MG/2 ML VIAL IV SCH (17:49)
[2025-06-04] MEDS: POTASSIUM EFFERVESENT TAB 25 MEQ PO SCH (21:16)
[2025-06-04] MEDS: DOXYCYCLINE 100 MG TAB/CAP PO SCH (21:17)
[2025-06-04 21:46] LABS: Hemoglobin 8.1 g/dL (13.5-17.5)
[2025-06-04 21:47] LABS: Hematocrit 24.5 % (41.0-53.0)
[2025-06-05] VITALS (16 sets, daily range): BP systolic 106–143; BP diastolic 16–78; PULSE 67–88; RESP 15–21; TEMP 97.3–99; O2SAT 90–98
--- NOTE | 2025-06-05 09:28 | DVHPN2 ---
Subjective Feels better Reviewed: Care Plan, H&P, Labs, Medications, Previous Orders, Radiology Changes from previous H/P or p: No Changes General: Per HPI Objective Vitals Vital Signs Date Time Temp Pulse Resp B/P (MAP) Pulse Ox O2 Delivery O2 Flow Rate FiO2 06/05/25 08:34 86 116/61 06/05/25 08:30 97.4 20 98 97.4 06/05/25 08:09 Simple Mask* 9 90 Intake/Output Intake and Output 06/05/25 07:00 Intake Total 880 ml Output Total 1175 ml Balance -295 ml Intake Oral 880 ml Output Urine Total 1175 ml General Appearance: Alert, Oriented X3, Cooperative HEENT: Atraumatic Lungs: Other (Few crackles bilateral lower patel) Cardiovascular: Regular rate Abdomen: Normal bowel sounds, Soft, No tenderness Extremities: Other (One to 2+ edema bilateral lower extremities) Psych/Mental Status: Mental status NL, Mood NL Medications Current Medications Medications Dose Ordered Sig/Judi Route Start Time Stop Time Status Last Admin Dose Admin Nitroglycerin 0.4 mg Q5MINP PRN SL 05/31/25 20:45 Morphine Sulfate 2 mg Q30M PRN IV 05/31/25 20:45 Atorvastatin Calcium 10 mg HS PO 06/01/25 22:00 06/04/25 21:17 10 MG Metoprolol Succinate 12.5 mg DAILY PO 06/01/25 10:00 06/05/25 08:34 12.5 MG Albuterol 2.5 mg Q6HPRN PRN NEB 05/31/25 23:45 Acetaminophen/ Hydrocodone Bitart 1 tab Q4HP PRN PO 05/31/25 23:45 Ondansetron HCl 4 mg Q4HP PRN IV 05/31/25 23:45 Acetaminophen 650 mg Q6HP PRN PO 05/31/25 23:45 Pantoprazole Sodium 40 mg BID IV 06/01/25 22:00 06/05/25 08:34 40 MG Apixaban 10 mg BID PO 06/02/25 22:00 06/09/25 21:59 06/05/25 08:34 10 MG Apixaban 5 mg BID PO 06/09/25 22:00 Albuterol 2.5 mg Q6HWA NEB 06/03/25 18:00 06/05/25 06:43 2.5 MG Ipratropium [place] 0.5 mg Q6HWA NEB 06/03/25 18:00 06/05/25 06:43 0.5 MG Budesonide 0.5 mg BID NEB 06/03/25 22:00 06/04/25 17:38 0.5 MG Potassium Bicarbonate 25 meq BID PO 06/04/25 22:00 06/05/25 08:34 25 MEQ Doxycycline Monohydrate 100 mg Q12HR PO 06/04/25 22:00 06/04/25 21:17 100 MG Furosemide 40 mg BIDD IV 06/05/25 09:30 UNV Laboratory Results Laboratory Tests 06/02/25 05:28 06/03/25 06:13 06/04/25 21:30 Cardiac Markers Test 06/04/25 11:08 B-Type Natriuretic Peptide 51.43 pg/mL (0-100) Urinalysis Test 05/31/25 23:34 Urine Color Yellow (Yellow) Urine Clarity Clear (Clear) Urine pH 7.0 (5.0-9.0) Urine Specific [place] 1.045 (1.001-1.035) Urine Protein Negative (Negative) Urine Ketones Trace (Negative) Urine Blood Negative /uL (Negative) Urine Nitrite Negative (Negative) Urine Bilirubin Negative (Negative) Urine Urobilinogen 2 mg/dL (Negative) H Urine Leukocyte Esterase Negative /uL (Negative) Urine Glucose Normal mg/dL (Normal) Assessment/Plan Assessment/Plan Acute respiratory failure with hypoxemia Questionable small PE in the left lower lobe that does not explain the hypoxemia Possible heart failure LVH Mild tricuspid regurgitation Morbid obesity Diabetes/Gloria Anemia of unclear etiology/repeat H&H to monitor for stability Plan: Increase Lasix. Monitor oxygenation. Monitor kidney function and vital signs. V/Q scan tomorrow Plan discussed with: Patient My Orders Orders - CASTRO CARTER MD Procedure Category Date Status Time Nm Vq Scan NM 06/04/25 Logged 09:36 Chest Portable XY 06/04/25 Resulted 09:36 Potassium Effervesent PHA 06/04/25 In Process Tab (Klor-Con/Ef) 22:00 Doxycycline Tablet PHA 06/04/25 In Process (Vibramycin Tablet) 22:00 Furosemide Injection PHA 06/05/25 Logged (Lasix Injection) 09:30 Date of Service: Jun 05, 2025 Billing Provider: CASTRO CARTER MD Common Visit Codes: [id number] INP/OBS CARE(HIGH) CASTRO CARTER MD Jun 05, 2025 09:28
[2025-06-05] MEDS: AZITHROMYCIN 500MG/ 250ML 250 ML IV SCH (12:11)
[2025-06-05] MEDS: FUROSEMIDE 20 MG/2 ML VIAL IV SCH (12:12)
--- NOTE | 2025-06-05 13:59 | DVHPN2 ---
Progress Note - Dictate Date Seen: Jun 05, 2025 Has the PT tested + for MRSA If YES, has PT been informed?: No Medical Necessity Reason Pt with a Central, PICC or Fol: No vital signs Vital Sign Date Time Temp Pulse Resp B/P (MAP) Pulse Ox O2 Delivery O2 Flow Rate FiO2 06/05/25 13:00 97.7 78 21 127/70 (89) 93 97.7 06/05/25 11:19 Simple Mask* 10 99 Total Intake and Output 06/04/25 06/04/25 06/05/25 15:00 23:00 07:00 Intake Total 580 ml 300 ml Output Total 450 ml 725 ml Balance 130 ml -425 ml medications Current Medications Medications Dose Ordered Sig/Judi Route Start Time Stop Time Status Last Admin Dose Admin Nitroglycerin 0.4 mg Q5MINP PRN SL 05/31/25 20:45 Morphine Sulfate 2 mg Q30M PRN IV 05/31/25 20:45 Atorvastatin Calcium 10 mg HS PO 06/01/25 22:00 06/04/25 21:17 10 MG Metoprolol Succinate 12.5 mg DAILY PO 06/01/25 10:00 06/05/25 08:34 12.5 MG Albuterol 2.5 mg Q6HPRN PRN NEB 05/31/25 23:45 Acetaminophen/ Hydrocodone Bitart 1 tab Q4HP PRN PO 05/31/25 23:45 Ondansetron HCl 4 mg Q4HP PRN IV 05/31/25 23:45 Acetaminophen 650 mg Q6HP PRN PO 05/31/25 23:45 Pantoprazole Sodium 40 mg BID IV 06/01/25 22:00 06/05/25 08:34 40 MG Apixaban 10 mg BID PO 06/02/25 22:00 06/09/25 21:59 06/05/25 08:34 10 MG Apixaban 5 mg BID PO 06/09/25 22:00 Albuterol 2.5 mg Q6HWA NEB 06/03/25 18:00 06/05/25 11:19 2.5 MG Ipratropium [place] 0.5 mg Q6HWA NEB 06/03/25 18:00 06/05/25 11:20 0.5 MG Budesonide 0.5 mg BID NEB 06/03/25 22:00 06/05/25 11:20 0.5 MG Potassium Bicarbonate 25 meq BID PO 06/04/25 22:00 06/05/25 08:34 25 MEQ Doxycycline Monohydrate 100 mg Q12HR PO 06/04/25 22:00 06/05/25 10:00 100 MG Furosemide 40 mg BIDD IV 06/05/25 09:30 06/05/25 12:12 40 MG Azithromycin 250 ml @ 125 mls/hr DAILY IV 06/05/25 11:30 06/05/25 12:11 125 MLS/HR laboratory and microbiology Laboratory Tests 06/04/25 21:30 06/03/25 06:13 06/02/25 05:28 Test 06/03/25 06:13 Range/Units Serum Glucose 126 H 74-106 mg/dL Assessment/Plan Acute hypoxic respiratory failure Dependence on supplemental oxygen Pulmonary embolism on Eliquis Ruled out DVT Diabetes mellitus Environmental exposure Snoring Morbid obesity, BMI 44.3 Events: pt on 6lpm 02 no active complaints Plan: Supplemental oxygen Titrate to keep O2 sats above 92%. cont Eliquis Bronchodilators. Incentive spirometry Glycemic control Diurese with Lasix as tolerated Monitor renal function. Monitor electrolytes. Supplement as necessary. Monitor ins and outs. Recommend diet and lifestyle modifications for weight reduction Obesity complicates all care DVT prophylaxis - Eliquis GI prophylaxis - Protonix Okay to discharge from pulmonary standpoint Home oxygen evaluation prior to discharge Prognosis:Poor given patient's multiple co-morbidities. Dietary Evaluation Review Comments: Nutrition Recommendation: 1) CCHO 75gm + cardiac diet 2) Refer Backup Administrative Coordinator for diabetes education 3) Monitor PO intake, lab values, weight trend, and I/O Expected Outcomes/Goals: To meet >75% estimated needs Lab values to improve Fu 3-5 days Plan discussed with: Patient CARLO ZARAGOZA MD Jun 05, 2025 13:59
[2025-06-06] VITALS (17 sets, daily range): BP systolic 116–140; BP diastolic 64–88; PULSE 77–94; RESP 14–18; TEMP 97.6–98.9; O2SAT 90–100
--- NOTE | 2025-06-06 11:37 | DVHPN2 ---
Subjective Patient with worsening generalized weakness, shortness of breath Reviewed: Care Plan, H&P, Labs, Medications, Previous Orders, Radiology Changes from previous H/P or p: Changes General: Per HPI Objective Vitals Vital Signs Date Time Temp Pulse Resp B/P (MAP) Pulse Ox O2 Delivery O2 Flow Rate FiO2 06/06/25 11:33 80 18 97 06/06/25 11:27 Simple Mask* 10 99 06/06/25 10:04 107/62 06/06/25 09:00 97.7 97.7 Intake/Output Intake and Output 06/06/25 07:00 Intake Total 700 ml Output Total 700 ml Balance 0 ml Intake Oral 450 ml IV Total 250 ml Output Urine Total 700 ml General Appearance: Alert, Oriented X3, Cooperative, mild distress, Other (Morbidly obese) HEENT: Atraumatic Lungs: Other (Few crackles bilateral lower patel) Cardiovascular: Regular rate, Normal S1, Normal S2 Abdomen: Normal bowel sounds, Soft, No tenderness Extremities: Other (One to 2+ edema bilateral lower extremities) Skin: Dry, Intact Psych/Mental Status: Mental status NL, Mood NL Medications Current Medications Medications Dose Ordered Sig/Judi Route Start Time Stop Time Status Last Admin Dose Admin Nitroglycerin 0.4 mg Q5MINP PRN SL 05/31/25 20:45 Morphine Sulfate 2 mg Q30M PRN IV 05/31/25 20:45 Atorvastatin Calcium 10 mg HS PO 06/01/25 22:00 06/05/25 21:39 10 MG Metoprolol Succinate 12.5 mg DAILY PO 06/01/25 10:00 06/06/25 10:04 12.5 MG Albuterol 2.5 mg Q6HPRN PRN NEB 05/31/25 23:45 Acetaminophen/ Hydrocodone Bitart 1 tab Q4HP PRN PO 05/31/25 23:45 Ondansetron HCl 4 mg Q4HP PRN IV 05/31/25 23:45 Acetaminophen 650 mg Q6HP PRN PO 05/31/25 23:45 Pantoprazole Sodium 40 mg BID IV 06/01/25 22:00 06/06/25 10:04 40 MG Apixaban 10 mg BID PO 06/02/25 22:00 06/09/25 21:59 06/06/25 10:02 10 MG Apixaban 5 mg BID PO 06/09/25 22:00 Albuterol 2.5 mg Q6HWA NEB 06/03/25 18:00 06/06/25 11:27 2.5 MG Ipratropium [place] 0.5 mg Q6HWA NEB 06/03/25 18:00 06/06/25 11:27 0.5 MG Budesonide 0.5 mg BID NEB 06/03/25 22:00 06/06/25 05:56 0.5 MG Potassium Bicarbonate 25 meq BID PO 06/04/25 22:00 06/06/25 10:04 25 MEQ Doxycycline Monohydrate 100 mg Q12HR PO 06/04/25 22:00 06/06/25 10:02 100 MG Furosemide 40 mg BIDD IV 06/05/25 09:30 06/06/25 05:28 40 MG Azithromycin 250 ml @ 125 mls/hr DAILY IV 06/05/25 11:30 06/06/25 10:04 125 MLS/HR Laboratory Results Laboratory Tests 06/02/25 05:28 06/03/25 06:13 06/04/25 21:30 Urinalysis Test 05/31/25 23:34 Urine Color Yellow (Yellow) Urine Clarity Clear (Clear) Urine pH 7.0 (5.0-9.0) Urine Specific [place] 1.045 (1.001-1.035) Urine Protein Negative (Negative) Urine Ketones Trace (Negative) Urine Blood Negative /uL (Negative) Urine Nitrite Negative (Negative) Urine Bilirubin Negative (Negative) Urine Urobilinogen 2 mg/dL (Negative) H Urine Leukocyte Esterase Negative /uL (Negative) Urine Glucose Normal mg/dL (Normal) Labs and/or images reviewed: Labs reviewed by me, Image(s) reviewed by me Assessment/Plan Assessment/Plan Impression: -acute hypoxic respiratory failure -pulmonary embolism -rule out DVT -morbid obesity -diabetes mellitus, new diagnosis -rule out congestive heart failure -rule out GI bleed, -anemia Plan: Events: Worsening hypoxia. -repeat labs -consider repeating CT scan of the chest -[place] nasal spray -echocardiogram: Results reviewed -continue Eliquis -PPI -pulmonary consultation: Recommendations appreciated -Social service consult for home O2 -repeat labs Total time spent with patient discussing and formulating plan of care: 35 minutes. This medical document was created using an electronic medical record system with Dragon computerized dictation system. Although this document has been carefully reviewed, there may still be some phonetic and typographical errors. These areas are purely typographical due to imperfections of the software programs, and do not reflect any compromise in the patient's medical care. Plan discussed with: Patient, Other (RN) My Orders Orders - CATHI CASIANO NP Procedure Category Date Status Time Cardiac DIET 06/06/25 Transmitted Diet-2gna,Lofat,Lochol Lunch Complete Blood Count LAB 06/06/25 Logged 11:31 Comprehensive LAB 06/06/25 Logged Metabolic Panel 11:31 Creatine Kinase LAB 06/06/25 Logged 11:31 Erythrocyte LAB 06/06/25 Logged Sedimentation Rate 11:31 D-Dimer LAB 06/06/25 Logged 11:31 Troponin-I Hs LAB 06/06/25 Logged 11:31 Electrocardigram EKG 06/06/25 Logged 11:31 Date of Service: Jun 06, 2025 Billing Provider: CATHI CASIANO NP Common Visit Codes: [id number] INP/OBS CARE(HIGH) CATHI CASIANO NP Jun 06, 2025 11:37
[2025-06-06 12:52] LABS: Alanine Aminotransferase 20 U/L (7-40); Albumin 4.0 g/dL (3.2-4.8); Alkaline Phosphatase 78 U/L (46-116); Anion Gap 9 (5-15); BUN/Creatinine Ratio 18.8 (10.0-20.0); Blood Urea Nitrogen 15 mg/dL (9-23); Carbon Dioxide 30 mmol/L (20-31); Potassium 3.6 mmol/L (3.5-5.1); Sodium 136 mmol/L (136-145); Total Protein 7.1 g/dL (5.7-8.2)
[2025-06-06 12:53] LABS: Bilirubin, Total 0.9 mg/dL (0.2-1.0); Calcium 8.3 mg/dL (8.7-10.4); Chloride 97 mmol/L (98-107); Creatine Kinase IFCC 237 U/L (46-171); Glucose 175 mg/dL (74-106)
[2025-06-06 12:55] LABS: Hematocrit 28.0 % (41.0-53.0); Hemoglobin 8.7 g/dL (13.5-17.5); Mean Corpuscular Hemoglobin 31.4 pg (28.0-32.0); Mean Corpuscular Volume 101.0 fL (80.0-100.0); Nucleated Red Blood Cells % 0.1 %
--- NOTE | 2025-06-06 15:08 | DVHPN2 ---
Progress Note - Dictate Date Seen: Jun 06, 2025 Has the PT tested + for MRSA If YES, has PT been informed?: No Medical Necessity Reason Pt with a Central, PICC or Fol: No vital signs Vital Sign Date Time Temp Pulse Resp B/P (MAP) Pulse Ox O2 Delivery O2 Flow Rate FiO2 06/06/25 11:33 80 18 97 06/06/25 11:27 Simple Mask* 10 99 06/06/25 10:04 107/62 06/06/25 09:00 97.7 97.7 Total Intake and Output 06/05/25 06/05/25 06/06/25 15:00 23:00 07:00 Intake Total 600 ml 100 ml Output Total 600 ml 100 ml Balance 0 ml 0 ml medications Current Medications Medications Dose Ordered Sig/Judi Route Start Time Stop Time Status Last Admin Dose Admin Nitroglycerin 0.4 mg Q5MINP PRN SL 05/31/25 20:45 Morphine Sulfate 2 mg Q30M PRN IV 05/31/25 20:45 Atorvastatin Calcium 10 mg HS PO 06/01/25 22:00 06/05/25 21:39 10 MG Metoprolol Succinate 12.5 mg DAILY PO 06/01/25 10:00 06/06/25 10:04 12.5 MG Albuterol 2.5 mg Q6HPRN PRN NEB 05/31/25 23:45 Acetaminophen/ Hydrocodone Bitart 1 tab Q4HP PRN PO 05/31/25 23:45 Ondansetron HCl 4 mg Q4HP PRN IV 05/31/25 23:45 Acetaminophen 650 mg Q6HP PRN PO 05/31/25 23:45 Pantoprazole Sodium 40 mg BID IV 06/01/25 22:00 06/06/25 10:04 40 MG Apixaban 10 mg BID PO 06/02/25 22:00 06/09/25 21:59 06/06/25 10:02 10 MG Apixaban 5 mg BID PO 06/09/25 22:00 Albuterol 2.5 mg Q6HWA NEB 06/03/25 18:00 06/06/25 11:27 2.5 MG Ipratropium [place] 0.5 mg Q6HWA NEB 06/03/25 18:00 06/06/25 11:27 0.5 MG Budesonide 0.5 mg BID NEB 06/03/25 22:00 06/06/25 05:56 0.5 MG Potassium Bicarbonate 25 meq BID PO 06/04/25 22:00 06/06/25 10:04 25 MEQ Doxycycline Monohydrate 100 mg Q12HR PO 06/04/25 22:00 06/06/25 10:02 100 MG Furosemide 40 mg BIDD IV 06/05/25 09:30 06/06/25 05:28 40 MG Azithromycin 250 ml @ 125 mls/hr DAILY IV 06/05/25 11:30 06/06/25 10:04 125 MLS/HR laboratory and microbiology Laboratory Tests 06/06/25 12:13 Test 06/06/25 12:13 Range/Units Serum Glucose 175 H 74-106 mg/dL Assessment/Plan Acute hypoxic respiratory failure Dependence on supplemental oxygen Pulmonary embolism on Eliquis Ruled out DVT Diabetes mellitus Environmental exposure Snoring Morbid obesity, BMI 44.3 Events: pt on 8 liters Anticoagulated with Eliquis Risk of thromboembolic disease low Plan: Supplemental oxygen Titrate to keep O2 sats above 92%. cont Eliquis Bronchodilators. Incentive spirometry Glycemic control Diurese with Lasix as tolerated Monitor renal function. Monitor electrolytes. Supplement as necessary. Monitor ins and outs. Recommend diet and lifestyle modifications for weight reduction Obesity complicates all care Patient would benefit from bipap 08/03 DVT prophylaxis - Eliquis GI prophylaxis - Protonix Obtain covid and influenza Home oxygen evaluation prior to discharge Prognosis:Poor given patient's multiple co-morbidities. Dietary Evaluation Review Comments: Nutrition Recommendation: 1) CCHO 75gm + cardiac diet 2) Refer Electric Fork Operator for diabetes education 3) Monitor PO intake, lab values, weight trend, and I/O Expected Outcomes/Goals: To meet >75% estimated needs Lab values to improve Fu 3-5 days Plan discussed with: Patient CARLO ZARAGOZA MD Jun 06, 2025 15:08
--- NOTE | 2025-06-06 18:12 | DVH ---
NON-CONTRAST CHEST COMPUTERIZED TOMOGRAPHY REASON FOR STUDY: Respiratory Failure COMPARISON: None TECHNIQUE: The exam was performed on a multidetector spiral scanner. Spiral scans were acquired throu gh the chest. 2-D coronal and sagittal reformatted images were provided. Radiation optimization: All CT scans at this facility use at least one of these dose optimization techniques: Automated exposure control mA and/or kV adjustment per patient size (includes targeted exams where dose is matched to cl inical indication) or iterative reconstruction. RADIATION DOSE: CTDI: 29.34 mGy DLP: 1067.15 mGy-cm FINDINGS: There is minimal focal linear scarring dependent portions of right and lower lobes of the lungs. There is minimal dependent atelectasis in the left lower lobe. No pulmonary nodule or mass is identified. There is no bronchiectasis or honeycombing. There is no pneumothorax. There is no pleur al effusion. The heart is not enlarged. There is no pericardial effusion. There are coronary artery calcifications. Thoracic aortic aneurysm. No pathologic lymphadenopathy is identified by size criter ia no acute osseous abnormality is identified. There are multiple healed rib fractures. IMPRESSION: Minimal dependent atelectasis in the left lower lobe. No other acute cardiopulmonary process is ident ified.
[2025-06-06 18:38] LABS: COVID19 ANTIGEN SOFIA FIA NEGATIVE (NEGATIVE)
[2025-06-07] VITALS (15 sets, daily range): BP systolic 117–148; BP diastolic 54–86; PULSE 53–100; RESP 18–22; TEMP 97.3–98.7; O2SAT 90–97
--- NOTE | 2025-06-07 13:43 | DVHPN2 ---
Subjective Patient with worsening generalized weakness, shortness of breath Reviewed: Care Plan, H&P, Labs, Medications, Previous Orders, Radiology Changes from previous H/P or p: No Changes General: Per HPI Objective Vitals Vital Signs Date Time Temp Pulse Resp B/P (MAP) Pulse Ox O2 Delivery O2 Flow Rate FiO2 06/07/25 11:41 80 18 96 06/07/25 11:35 Simple Mask* 10 99 06/07/25 09:29 115/55 06/07/25 08:49 98.4 98.4 Intake/Output Intake and Output 06/07/25 07:00 Intake Total 1074 ml Output Total 1175 ml Balance -101 ml Intake Oral 824 ml IV Total 250 ml Output Urine Total 1175 ml General Appearance: Alert, Oriented X3, Cooperative, mild distress, Other (Morbidly obese) HEENT: Atraumatic, PERRLA Lungs: Other (Few crackles bilateral lower patel) Cardiovascular: Regular rate, Normal S1, Normal S2 Abdomen: Normal bowel sounds, Soft, No tenderness Extremities: Other (One to 2+ edema bilateral lower extremities) Skin: Dry, Intact Psych/Mental Status: Mental status NL, Mood NL Medications Current Medications Medications Dose Ordered Sig/Judi Route Start Time Stop Time Status Last Admin Dose Admin Nitroglycerin 0.4 mg Q5MINP PRN SL 05/31/25 20:45 Morphine Sulfate 2 mg Q30M PRN IV 05/31/25 20:45 Atorvastatin Calcium 10 mg HS PO 06/01/25 22:00 06/06/25 21:38 10 MG Metoprolol Succinate 12.5 mg DAILY PO 06/01/25 10:00 06/07/25 09:29 12.5 MG Albuterol 2.5 mg Q6HPRN PRN NEB 05/31/25 23:45 Acetaminophen/ Hydrocodone Bitart 1 tab Q4HP PRN PO 05/31/25 23:45 Ondansetron HCl 4 mg Q4HP PRN IV 05/31/25 23:45 Acetaminophen 650 mg Q6HP PRN PO 05/31/25 23:45 Pantoprazole Sodium 40 mg BID IV 06/01/25 22:00 06/07/25 09:29 40 MG Apixaban 10 mg BID PO 06/02/25 22:00 06/09/25 21:59 06/07/25 09:28 10 MG Apixaban 5 mg BID PO 06/09/25 22:00 Albuterol 2.5 mg Q6HWA NEB 06/03/25 18:00 06/07/25 11:35 2.5 MG Ipratropium [place] 0.5 mg Q6HWA NEB 06/03/25 18:00 06/07/25 11:35 0.5 MG Budesonide 0.5 mg BID NEB 06/03/25 22:00 06/07/25 05:53 0.5 MG Potassium Bicarbonate 25 meq BID PO 06/04/25 22:00 06/07/25 09:28 25 MEQ Doxycycline Monohydrate 100 mg Q12HR PO 06/04/25 22:00 06/07/25 09:28 100 MG Furosemide 40 mg BIDD IV 06/05/25 09:30 06/07/25 05:23 40 MG Azithromycin 250 ml @ 125 mls/hr DAILY IV 06/05/25 11:30 06/07/25 09:29 125 MLS/HR Laboratory Results Laboratory Tests 06/06/25 12:13 Urinalysis Test 05/31/25 23:34 Urine Color Yellow (Yellow) Urine Clarity Clear (Clear) Urine pH 7.0 (5.0-9.0) Urine Specific [place] 1.045 (1.001-1.035) Urine Protein Negative (Negative) Urine Ketones Trace (Negative) Urine Blood Negative /uL (Negative) Urine Nitrite Negative (Negative) Urine Bilirubin Negative (Negative) Urine Urobilinogen 2 mg/dL (Negative) H Urine Leukocyte Esterase Negative /uL (Negative) Urine Glucose Normal mg/dL (Normal) Labs and/or images reviewed: Labs reviewed by me, Image(s) reviewed by me Assessment/Plan Assessment/Plan Impression: -acute hypoxic respiratory failure -pulmonary embolism -rule out DVT -morbid obesity -diabetes mellitus, new diagnosis -rule out congestive heart failure -rule out GI bleed, -anemia Plan: Events: Repeat CT scan with no acute changes. Patient continues to be on 9-10 L simple mask. -out of bed for meals -EzPAP with treatments -BiPAP/CPAP at night -[place] nasal spray -echocardiogram: Results reviewed -continue Eliquis -PPI -pulmonary consultation: Recommendations appreciated -Social service consult for home O2 Total time spent with patient discussing and formulating plan of care: 35 minutes. This medical document was created using an electronic medical record system with [employer] dictation system. Although this document has been carefully reviewed, there may still be some phonetic and typographical errors. These areas are purely typographical due to imperfections of the software programs, and do not reflect any compromise in the patient's medical care. Plan discussed with: Patient, Other (RN) My Orders Orders - CATHI CASIANO NP Procedure Category Date Status Time Chest Without Contrast CT 06/06/25 Resulted 14:22 Oxygen By Nasal RT 06/07/25 Transmitted Cannula 08:57 Oob To Chair STEVIE 06/07/25 Transmitted 13:40 Incentive Spirometry ORDERS 06/07/25 Transmitted Q 1hr 13:40 Ez-Pap RT 06/07/25 Transmitted 13:40 Date of Service: Jun 07, 2025 Billing Provider: CATHI CASIANO NP Common Visit Codes: [id number] INP/OBS CARE(HIGH) CATHI CASIANO NP Jun 07, 2025 13:43
--- NOTE | 2025-06-07 20:37 | DVHPN2 ---
Subjective DOS: 06/07/2025 Patient seen and examined at bedside. Remains on supplemental oxygen Overnight events reviewed. Reviewed: Care Plan, H&P, Labs, Medications, Previous Orders, Radiology Changes from previous H/P or p: No Changes General: Per HPI Objective Vitals Vital Signs Date Time Temp Pulse Resp B/P (MAP) Pulse Ox O2 Delivery O2 Flow Rate FiO2 06/07/25 18:30 90 Simple Mask* 10 99 06/07/25 18:30 98 22 06/07/25 17:20 123/71 06/07/25 17:02 98.7 98.7 Intake/Output Intake and Output 06/07/25 07:00 Intake Total 1074 ml Output Total 1175 ml Balance -101 ml Intake Oral 824 ml IV Total 250 ml Output Urine Total 1175 ml General Appearance: Alert, Oriented X3, Cooperative, mild distress, Other (Morbidly obese) HEENT: Atraumatic, PERRLA Lungs: Other (Few crackles bilateral lower patel) Cardiovascular: Regular rate, Normal S1, Normal S2 Abdomen: Normal bowel sounds, Soft, No tenderness Extremities: Other (One to 2+ edema bilateral lower extremities) Skin: Dry, Intact Psych/Mental Status: Mental status NL, Mood NL Medications Current Medications Medications Dose Ordered Sig/Judi Route Start Time Stop Time Status Last Admin Dose Admin Nitroglycerin 0.4 mg Q5MINP PRN SL 05/31/25 20:45 Morphine Sulfate 2 mg Q30M PRN IV 05/31/25 20:45 Atorvastatin Calcium 10 mg HS PO 06/01/25 22:00 06/06/25 21:38 10 MG Metoprolol Succinate 12.5 mg DAILY PO 06/01/25 10:00 06/07/25 09:29 12.5 MG Albuterol 2.5 mg Q6HPRN PRN NEB 05/31/25 23:45 Acetaminophen/ Hydrocodone Bitart 1 tab Q4HP PRN PO 05/31/25 23:45 Ondansetron HCl 4 mg Q4HP PRN IV 05/31/25 23:45 Acetaminophen 650 mg Q6HP PRN PO 05/31/25 23:45 Pantoprazole Sodium 40 mg BID IV 06/01/25 22:00 06/07/25 09:29 40 MG Apixaban 10 mg BID PO 06/02/25 22:00 06/09/25 21:59 06/07/25 09:28 10 MG Apixaban 5 mg BID PO 06/09/25 22:00 Albuterol 2.5 mg Q6HWA [facility] 06/03/25 18:00 06/07/25 18:30 2.5 MG Ipratropium [place] 0.5 mg Q6HWA NEB 06/03/25 18:00 06/07/25 18:30 0.5 MG Budesonide 0.5 mg BID NEB 06/03/25 22:00 06/07/25 18:30 0.5 MG Potassium Bicarbonate 25 meq BID PO 06/04/25 22:00 06/07/25 09:28 25 MEQ Doxycycline Monohydrate 100 mg Q12HR PO 06/04/25 22:00 06/07/25 09:28 100 MG Furosemide 40 mg BIDD IV 06/05/25 09:30 06/07/25 17:20 40 MG Azithromycin 250 ml @ 125 mls/hr DAILY IV 06/05/25 11:30 06/07/25 09:29 125 MLS/HR Laboratory Results Laboratory Tests 06/06/25 12:13 Urinalysis Test 05/31/25 23:34 Urine Color Yellow (Yellow) Urine Clarity Clear (Clear) Urine pH 7.0 (5.0-9.0) Urine Specific [place] 1.045 (1.001-1.035) Urine Protein Negative (Negative) Urine Ketones Trace (Negative) Urine Blood Negative /uL (Negative) Urine Nitrite Negative (Negative) Urine Bilirubin Negative (Negative) Urine Urobilinogen 2 mg/dL (Negative) H Urine Leukocyte Esterase Negative /uL (Negative) Urine Glucose Normal mg/dL (Normal) Assessment/Plan Assessment/Plan Impression: Acute hypoxic respiratory failure Dependence on supplemental oxygen Pulmonary embolism Ruled out DVT Diabetes mellitus Environmental exposure Snoring Morbid obesity, BMI 44.3 Events: Remains on supplemental oxygen On 9 LPM simple mask Taper O2 as tolerated Difficulty in tapering supplemental oxygen Chest CT w/o cnotrast on 06/06/25 shows minimal dependent atelectasis in the left lower lobe. No other acute cardiopulmonary process. Continue bronchodilators Pulmicort BID Continue antibiotics Incentive spirometry Continue anticoagulation with Eliquis PO BID Cardiology recommendations appreciated Continue diuresis with Lasix Monitor renal function. Monitor electrolytes. Supplement as necessary. Potassium supplementation Protonix for GI ppx Labs and imaging reviewed. Rest of plan as noted below. Plan: Supplemental oxygen Titrate to keep O2 sats above 92%. Ultrasound of BLE venous Doppler revealed no right or left femoropopliteal venous thrombosis. Chest CT angio with contrast demonstrated questionable small embolism at the distal left inferior lobar and proximal subsegmental branches. No evidence of right heart strain. Peripheral pulmonary arterial enlargement and basilar ground-glass attenuation suggesting mild heart failure. No focal consolidation. Complete 3 months course of Eliquis Bronchodilators. Incentive spirometry ECHO (06/01/25) results reviewed; Concentric LVH. Left ventricular systolic performance is preserved at 60% with normal RV function. RVSP of 20 mmHg. Mild TR. Cardiology recommendations appreciated Glycemic control Recommend outpatient sleep study as patient is at high risk of KJ Hx of environmental exposures - Avoid chemicals; wear PPE Diurese with Lasix as tolerated Monitor renal function. Monitor electrolytes. Supplement as necessary. Monitor ins and outs. Recommend diet and lifestyle modifications for weight reduction Obesity complicates all care DVT prophylaxis - Eliquis GI prophylaxis - Protonix Prognosis:Poor given patient's multiple co-morbidities. Rest of plan per hospitalist and other consultants. Thank you, ESTELLA Arteaga for allowing me to participate in this patient's care. Further recommendations will depend on the patient's clinical course. Please do not hesitate to contact me if you have any questions or concerns. This medical document was created using an electronic medical record system with [employer] dictation system. Although these documentations are being carefully reviewed, there may still be some phonetic and typographical changes. The errors are purely typographical, due to imperfection on the software program, and do not reflect any compromise in the patient's medical care. Plan discussed with: Patient, Other (TEO Lira) Visit Coding Pulmonary Billing Provider: MARKO HUYNH MD Date of Service if different f: Jun 07, 2025 Common Visit Codes: [id number] INP/OBS CARE(HIGH) MARKO HUYNH MD Jun 07, 2025 20:37
[2025-06-08] VITALS (15 sets, daily range): BP systolic 113–130; BP diastolic 62–84; PULSE 65–98; RESP 18–22; TEMP 97.8–98.4; O2SAT 92–99
[2025-06-08 09:54] LABS: Nucleated Red Blood Cells % 0.0 %
--- NOTE | 2025-06-08 09:55 | DVHPN2 ---
Subjective Patient states that his breathing has improved from yesterday. Reviewed: Care Plan, H&P, Labs, Medications, Previous Orders, Radiology Changes from previous H/P or p: No Changes General: Per HPI Objective Vitals Vital Signs Date Time Temp Pulse Resp B/P (MAP) Pulse Ox O2 Delivery O2 Flow Rate FiO2 06/08/25 05:58 130/77 06/08/25 05:00 98.1 87 20 94 98.1 06/07/25 20:00 Simple Mask* 9 90 Intake/Output Intake and Output 06/08/25 07:00 Intake Total 990 ml Output Total 1060 ml Balance -70 ml Intake Oral 740 ml IV Total 250 ml Output Urine Total 1060 ml General Appearance: Alert, Oriented X3, Cooperative, mild distress, Other (Morbidly obese) HEENT: Atraumatic, PERRLA Lungs: Other (Few crackles bilateral lower patel) Cardiovascular: Regular rate, Normal S1, Normal S2 Abdomen: Normal bowel sounds, Soft, No tenderness Extremities: Other (One to 2+ edema bilateral lower extremities) Skin: Dry, Intact Psych/Mental Status: Mental status NL, Mood NL Medications Current Medications Medications Dose Ordered Sig/Judi Route Start Time Stop Time Status Last Admin Dose Admin Nitroglycerin 0.4 mg Q5MINP PRN SL 05/31/25 20:45 Morphine Sulfate 2 mg Q30M PRN IV 05/31/25 20:45 Atorvastatin Calcium 10 mg HS PO 06/01/25 22:00 06/07/25 21:20 10 MG Metoprolol Succinate 12.5 mg DAILY PO 06/01/25 10:00 06/07/25 09:29 12.5 MG Albuterol 2.5 mg Q6HPRN PRN NEB 05/31/25 23:45 Acetaminophen/ Hydrocodone Bitart 1 tab Q4HP PRN PO 05/31/25 23:45 Ondansetron HCl 4 mg Q4HP PRN IV 05/31/25 23:45 Acetaminophen 650 mg Q6HP PRN PO 05/31/25 23:45 Pantoprazole Sodium 40 mg BID IV 06/01/25 22:00 06/07/25 21:19 40 MG Apixaban 10 mg BID PO 06/02/25 22:00 06/09/25 21:59 06/07/25 21:19 10 MG Apixaban 5 mg BID PO 06/09/25 22:00 Albuterol 2.5 mg Q6HWA NEB 06/03/25 18:00 06/08/25 07:46 2.5 MG Ipratropium [place] 0.5 mg Q6HWA NEB 06/03/25 18:00 06/08/25 07:47 0.5 MG Budesonide 0.5 mg BID NEB 06/03/25 22:00 06/08/25 07:46 0.5 MG Potassium Bicarbonate 25 meq BID PO 06/04/25 22:00 06/07/25 21:19 25 MEQ Doxycycline Monohydrate 100 mg Q12HR PO 06/04/25 22:00 06/07/25 21:19 100 MG Furosemide 40 mg BIDD IV 06/05/25 09:30 06/08/25 05:58 40 MG Azithromycin 250 ml @ 125 mls/hr DAILY IV 06/05/25 11:30 06/07/25 09:29 125 MLS/HR Laboratory Results Chemistry Test 06/08/25 09:37 Calcium Level Pending Urinalysis Test 05/31/25 23:34 Urine Color Yellow (Yellow) Urine Clarity Clear (Clear) Urine pH 7.0 (5.0-9.0) Urine Specific [place] 1.045 (1.001-1.035) Urine Protein Negative (Negative) Urine Ketones Trace (Negative) Urine Blood Negative /uL (Negative) Urine Nitrite Negative (Negative) Urine Bilirubin Negative (Negative) Urine Urobilinogen 2 mg/dL (Negative) H Urine Leukocyte Esterase Negative /uL (Negative) Urine Glucose Normal mg/dL (Normal) Labs and/or images reviewed: Labs reviewed by me, Image(s) reviewed by me Assessment/Plan Assessment/Plan Impression: -acute hypoxic respiratory failure -pulmonary embolism -rule out DVT -morbid obesity -diabetes mellitus, new diagnosis -rule out congestive heart failure -rule out GI bleed, -anemia Plan: Events: Patient now on 8 L via simple mask. -out of bed for meals -EzPAP with treatments -BiPAP/CPAP at night if tolerated -[place] nasal spray -echocardiogram: Results reviewed -continue Eliquis -PPI -pulmonary consultation: Recommendations appreciated -Social service consult for home O2 Total time spent with patient discussing and formulating plan of care: 35 minutes. This medical document was created using an electronic medical record system with Dragon computerized dictation system. Although this document has been carefully reviewed, there may still be some phonetic and typographical errors. These areas are purely typographical due to imperfections of the software programs, and do not reflect any compromise in the patient's medical care. Plan discussed with: Patient, Other (RN) My Orders Orders - CATHI CASIANO NP Procedure Category Date Status Time Oob To Chair STEVIE 06/07/25 In Process 13:40 Incentive Spirometry ORDERS 06/07/25 Transmitted Q 1hr 13:40 Ez-Pap RT 06/07/25 Transmitted 13:40 Basic Metabolic Panel LAB 06/08/25 In Process 08:29 Complete Blood Count LAB 06/08/25 In Process 08:29 Date of Service: Jun 08, 2025 Billing Provider: CATHI CASIANO NP Common Visit Codes: [id number] INP/OBS CARE(HIGH) CATHI CASIANO NP Jun 08, 2025 09:55
[2025-06-08 09:56] LABS: Hematocrit 25.0 % (41.0-53.0); Hemoglobin 8.1 g/dL (13.5-17.5); Mean Corpuscular Hemoglobin 30.5 pg (28.0-32.0); Mean Corpuscular Volume 93.5 fL (80.0-100.0)
[2025-06-08 10:05] LABS: Sodium 137 mmol/L (136-145)
[2025-06-08 10:06] LABS: Anion Gap 8 (5-15)
[2025-06-08 10:10] LABS: Calcium 8.3 mg/dL (8.7-10.4); Carbon Dioxide 33 mmol/L (20-31); Chloride 96 mmol/L (98-107); Potassium 3.3 mmol/L (3.5-5.1)
[2025-06-08 10:11] LABS: BUN/Creatinine Ratio 24.4 (10.0-20.0); Blood Urea Nitrogen 21 mg/dL (9-23)
[2025-06-08 10:18] LABS: Glucose 146 mg/dL (74-106)
--- NOTE | 2025-06-08 22:34 | DVHPN2 ---
Subjective DOS: 06/08/2025 Patient seen and examined at bedside. Remains on supplemental oxygen Overnight events reviewed. Reviewed: Care Plan, H&P, Labs, Medications, Previous Orders, Radiology Changes from previous H/P or p: No Changes General: Per HPI Objective Vitals Vital Signs Date Time Temp Pulse Resp B/P (MAP) Pulse Ox O2 Delivery O2 Flow Rate FiO2 06/08/25 18:30 92 20 97 06/08/25 18:22 Mask 7.0 06/08/25 18:22 60 06/08/25 17:26 122/76 06/08/25 17:00 98.0 98.0 Intake/Output Intake and Output 06/08/25 07:00 Intake Total 990 ml Output Total 1060 ml Balance -70 ml Intake Oral 740 ml IV Total 250 ml Output Urine Total 1060 ml General Appearance: Alert, Oriented X3, Cooperative, mild distress, Other (Morbidly obese) HEENT: Atraumatic, PERRLA Lungs: Other (Few crackles bilateral lower patel) Cardiovascular: Regular rate, Normal S1, Normal S2 Abdomen: Normal bowel sounds, Soft, No tenderness Extremities: Other (One to 2+ edema bilateral lower extremities) Skin: Dry, Intact Psych/Mental Status: Mental status NL, Mood NL Medications Current Medications Medications Dose Ordered Sig/Judi Route Start Time Stop Time Status Last Admin Dose Admin Nitroglycerin 0.4 mg Q5MINP PRN SL 05/31/25 20:45 Morphine Sulfate 2 mg Q30M PRN IV 05/31/25 20:45 Atorvastatin Calcium 10 mg HS PO 06/01/25 22:00 06/08/25 21:15 10 MG Metoprolol Succinate 12.5 mg DAILY PO 06/01/25 10:00 06/08/25 10:15 12.5 MG Albuterol 2.5 mg Q6HPRN PRN NEB 05/31/25 23:45 Acetaminophen/ Hydrocodone Bitart 1 tab Q4HP PRN PO 05/31/25 23:45 Ondansetron HCl 4 mg Q4HP PRN IV 05/31/25 23:45 Acetaminophen 650 mg Q6HP PRN PO 05/31/25 23:45 Pantoprazole Sodium 40 mg BID IV 06/01/25 22:00 06/08/25 21:16 40 MG Apixaban 10 mg BID PO 06/02/25 22:00 06/09/25 21:59 06/08/25 21:16 10 MG Apixaban 5 mg BID PO 06/09/25 22:00 Albuterol 2.5 mg Q6HWA NEB 06/03/25 18:00 06/08/25 18:21 2.5 MG Ipratropium [place] 0.5 mg Q6HWA NEB 06/03/25 18:00 06/08/25 18:21 0.5 MG Budesonide 0.5 mg BID NEB 06/03/25 22:00 06/08/25 18:22 0.5 MG Potassium Bicarbonate 25 meq BID PO 06/04/25 22:00 06/08/25 21:15 25 MEQ Doxycycline Monohydrate 100 mg Q12HR PO 06/04/25 22:00 06/08/25 21:16 100 MG Furosemide 40 mg BIDD IV 06/05/25 09:30 06/08/25 17:26 40 MG Azithromycin 250 ml @ 125 mls/hr DAILY IV 06/05/25 11:30 06/08/25 10:15 125 MLS/HR Laboratory Results Laboratory Tests 06/08/25 09:37 Chemistry Test 06/08/25 09:37 Calcium Level 8.3 mg/dL (8.7-10.4) L Urinalysis Test 05/31/25 23:34 Urine Color Yellow (Yellow) Urine Clarity Clear (Clear) Urine pH 7.0 (5.0-9.0) Urine Specific [place] 1.045 (1.001-1.035) Urine Protein Negative (Negative) Urine Ketones Trace (Negative) Urine Blood Negative /uL (Negative) Urine Nitrite Negative (Negative) Urine Bilirubin Negative (Negative) Urine Urobilinogen 2 mg/dL (Negative) H Urine Leukocyte Esterase Negative /uL (Negative) Urine Glucose Normal mg/dL (Normal) Assessment/Plan Assessment/Plan Impression: Acute hypoxic respiratory failure Dependence on supplemental oxygen Pulmonary embolism Ruled out DVT Diabetes mellitus Environmental exposure Snoring Morbid obesity, BMI 44.3 Events: Remains on supplemental oxygen On 9 LPM simple mask Taper O2 as tolerated Difficulty in tapering supplemental oxygen Pt states breathing is improved. Chest CT w/o contrast on 06/06/25 showed minimal dependent atelectasis in the left lower lobe. No other acute cardiopulmonary process. Continue bronchodilators Pulmicort BID Complete antibiotics Incentive spirometry Continue anticoagulation with Eliquis PO BID Cardiology recommendations appreciated Continue diuresis with Lasix Fluid and salt restriction Monitor renal function. Monitor electrolytes. Supplement as necessary. Potassium supplementation Protonix for GI ppx Labs and imaging reviewed. Rest of plan as noted below. Plan: Supplemental oxygen Titrate to keep O2 sats above 92%. Ultrasound of BLE venous Doppler revealed no right or left femoropopliteal venous thrombosis. Chest CT angio with contrast demonstrated questionable small embolism at the distal left inferior lobar and proximal subsegmental branches. No evidence of right heart strain. Peripheral pulmonary arterial enlargement and basilar ground-glass attenuation suggesting mild heart failure. No focal consolidation. Complete 3 months course of Eliquis. Bronchodilators. Incentive spirometry ECHO (06/01/25) results reviewed; Concentric LVH. Left ventricular systolic performance is preserved at 60% with normal RV function. RVSP of 20 mmHg. Mild TR. Cardiology recommendations appreciated Glycemic control Recommend outpatient sleep study as patient is at high risk of KJ Hx of environmental exposures - Avoid chemicals; wear PPE Diurese with Lasix as tolerated Monitor renal function. Monitor electrolytes. Supplement as necessary. Monitor ins and outs. Recommend diet and lifestyle modifications for weight reduction Obesity complicates all care DVT prophylaxis - Eliquis GI prophylaxis - Protonix Prognosis:Poor given patient's multiple co-morbidities. Rest of plan per hospitalist and other consultants. Thank you, ESTELLA Arteaga for allowing me to participate in this patient's care. Further recommendations will depend on the patient's clinical course. Please do not hesitate to contact me if you have any questions or concerns. This medical document was created using an electronic medical record system with [employer] dictation system. Although these documentations are being carefully reviewed, there may still be some phonetic and typographical changes. The errors are purely typographical, due to imperfection on the software program, and do not reflect any compromise in the patient's medical care. Plan discussed with: Patient, Other (TEO Willis) Visit Coding Pulmonary Billing Provider: MARKO HUYNH MD Date of Service if different f: Jun 08, 2025 Common Visit Codes: [id number] INP/OBS CARE(HIGH) MARKO HUYNH MD Jun 08, 2025 22:34
[2025-06-09] VITALS (15 sets, daily range): BP systolic 89–132; BP diastolic 47–78; PULSE 61–96; RESP 14–19; TEMP 98–98.6; O2SAT 89–97
--- NOTE | 2025-06-09 11:45 | DVHPN2 ---
Subjective Patient states that his breathing has improved from yesterday. Reviewed: Care Plan, H&P, Labs, Medications, Previous Orders, Radiology Changes from previous H/P or p: No Changes General: Per HPI Objective Vitals Vital Signs Date Time Temp Pulse Resp B/P (MAP) Pulse Ox O2 Delivery O2 Flow Rate FiO2 06/09/25 09:48 91 125/78 06/09/25 06:37 94 Mask 10.0 06/09/25 06:37 99 06/09/25 06:37 14 06/09/25 05:00 98.2 98.2 Intake/Output Intake and Output 06/09/25 07:00 Intake Total 1370 ml Output Total 1550 ml Balance -180 ml Intake Oral 1120 ml IV Total 250 ml Output Urine Total 1550 ml General Appearance: Alert, Oriented X3, Cooperative, mild distress, Other (Morbidly obese) HEENT: Atraumatic, PERRLA Lungs: Other (Few crackles bilateral lower patel) Cardiovascular: Regular rate, Normal S1, Normal S2 Abdomen: Normal bowel sounds, Soft, No tenderness Extremities: Other (One to 2+ edema bilateral lower extremities) Skin: Dry, Intact Psych/Mental Status: Mental status NL, Mood NL Medications Current Medications Medications Dose Ordered Sig/Judi Route Start Time Stop Time Status Last Admin Dose Admin Nitroglycerin 0.4 mg Q5MINP PRN SL 05/31/25 20:45 Morphine Sulfate 2 mg Q30M PRN IV 05/31/25 20:45 Atorvastatin Calcium 10 mg HS PO 06/01/25 22:00 06/08/25 21:15 10 MG Metoprolol Succinate 12.5 mg DAILY PO 06/01/25 10:00 06/09/25 09:48 12.5 MG Albuterol 2.5 mg Q6HPRN PRN NEB 05/31/25 23:45 Acetaminophen/ Hydrocodone Bitart 1 tab Q4HP PRN PO 05/31/25 23:45 Ondansetron HCl 4 mg Q4HP PRN IV 05/31/25 23:45 Acetaminophen 650 mg Q6HP PRN PO 05/31/25 23:45 Pantoprazole Sodium 40 mg BID IV 06/01/25 22:00 06/09/25 09:46 40 MG Apixaban 10 mg BID PO 06/02/25 22:00 06/09/25 21:59 06/09/25 09:46 10 MG Apixaban 5 mg BID PO 06/09/25 22:00 Albuterol 2.5 mg Q6HWA [facility] [place] 06/03/25 18:00 06/09/25 06:37 2.5 MG Ipratropium [place] 0.5 mg Q6HWA NEB 06/03/25 18:00 06/09/25 06:37 0.5 MG Budesonide 0.5 mg BID NEB 06/03/25 22:00 06/09/25 06:36 0.5 MG Potassium Bicarbonate 25 meq BID PO 06/04/25 22:00 06/09/25 09:51 25 MEQ Doxycycline Monohydrate 100 mg Q12HR PO 06/04/25 22:00 06/09/25 09:46 100 MG Furosemide 40 mg BIDD IV 06/05/25 09:30 06/09/25 05:56 40 MG Azithromycin 250 ml @ 125 mls/hr DAILY IV 06/05/25 11:30 06/09/25 09:46 125 MLS/HR Laboratory Results Laboratory Tests 06/08/25 09:37 Urinalysis Test 05/31/25 23:34 Urine Color Yellow (Yellow) Urine Clarity Clear (Clear) Urine pH 7.0 (5.0-9.0) Urine Specific [place] 1.045 (1.001-1.035) Urine Protein Negative (Negative) Urine Ketones Trace (Negative) Urine Blood Negative /uL (Negative) Urine Nitrite Negative (Negative) Urine Bilirubin Negative (Negative) Urine Urobilinogen 2 mg/dL (Negative) H Urine Leukocyte Esterase Negative /uL (Negative) Urine Glucose Normal mg/dL (Normal) Labs and/or images reviewed: Labs reviewed by me, Image(s) reviewed by me Assessment/Plan Assessment/Plan Impression: -acute hypoxic respiratory failure -pulmonary embolism -rule out DVT -morbid obesity -diabetes mellitus, new diagnosis -rule out congestive heart failure -rule out GI bleed, -anemia Plan: Events: Simple Mask decreased to 6lpm. -out of bed for meals -EzPAP with treatments -BiPAP/CPAP at night if tolerated -[place] nasal spray -echocardiogram: Results reviewed -continue Eliquis -PPI -pulmonary consultation: Recommendations appreciated -Social service consult for home O2 Total time spent with patient discussing and formulating plan of care: 35 minutes. This medical document was created using an electronic medical record system with [employer] dictation system. Although this document has been carefully reviewed, there may still be some phonetic and typographical errors. These areas are purely typographical due to imperfections of the software programs, and do not reflect any compromise in the patient's medical care. Plan discussed with: Patient, Other My Orders Orders - CATHI CASIANO NP Procedure Category Date Status Time Basic Metabolic Panel LAB 06/09/25 Transmitted 11:28 Date of Service: Jun 09, 2025 Billing Provider: CATHI CASIANO NP Common Visit Codes: [id number] INP/OBS CARE(HIGH) CATHI CASIANO NP Jun 09, 2025 11:45
[2025-06-09 13:40] LABS: Potassium 3.6 mmol/L (3.5-5.1); Sodium 138 mmol/L (136-145)
[2025-06-09 13:41] LABS: Anion Gap 13 (5-15); Calcium 8.9 mg/dL (8.7-10.4); Carbon Dioxide 31 mmol/L (20-31)
[2025-06-09 13:43] LABS: Chloride 94 mmol/L (98-107)
[2025-06-09 13:46] LABS: BUN/Creatinine Ratio 24.5 (10.0-20.0)
[2025-06-09 13:47] LABS: Blood Urea Nitrogen 25 mg/dL (9-23); Glucose 173 mg/dL (74-106)
--- NOTE | 2025-06-09 16:17 | DVHPN2 ---
Subjective DOS: 06/09/2025 Patient seen and examined at bedside. Remains on supplemental oxygen Overnight events reviewed. Reviewed: Care Plan, H&P, Labs, Medications, Previous Orders, Radiology Changes from previous H/P or p: No Changes General: Per HPI Objective Vitals Vital Signs Date Time Temp Pulse Resp B/P (MAP) Pulse Ox O2 Delivery O2 Flow Rate FiO2 06/09/25 12:01 86 18 94 06/09/25 11:53 Nasal Cannula* 6 44 06/09/25 09:48 125/78 06/09/25 05:00 98.2 98.2 Intake/Output Intake and Output 06/09/25 07:00 Intake Total 1370 ml Output Total 1550 ml Balance -180 ml Intake Oral 1120 ml IV Total 250 ml Output Urine Total 1550 ml General Appearance: Alert, Oriented X3, Cooperative, mild distress, Other (Morbidly obese) HEENT: Atraumatic, PERRLA Lungs: Other (Few crackles bilateral lower patel) Cardiovascular: Regular rate, Normal S1, Normal S2 Abdomen: Normal bowel sounds, Soft, No tenderness Extremities: Other (One to 2+ edema bilateral lower extremities) Skin: Dry, Intact Psych/Mental Status: Mental status NL, Mood NL Medications Current Medications Medications Dose Ordered Sig/Judi Route Start Time Stop Time Status Last Admin Dose Admin Nitroglycerin 0.4 mg Q5MINP PRN SL 05/31/25 20:45 Morphine Sulfate 2 mg Q30M PRN IV 05/31/25 20:45 Atorvastatin Calcium 10 mg HS PO 06/01/25 22:00 06/08/25 21:15 10 MG Metoprolol Succinate 12.5 mg DAILY PO 06/01/25 10:00 06/09/25 09:48 12.5 MG Albuterol 2.5 mg Q6HPRN PRN NEB 05/31/25 23:45 Acetaminophen/ Hydrocodone Bitart 1 tab Q4HP PRN PO 05/31/25 23:45 Ondansetron HCl 4 mg Q4HP PRN IV 05/31/25 23:45 Acetaminophen 650 mg Q6HP PRN PO 05/31/25 23:45 Pantoprazole Sodium 40 mg BID IV 06/01/25 22:00 06/09/25 09:46 40 MG Apixaban 10 mg BID PO 06/02/25 22:00 06/09/25 21:59 06/09/25 09:46 10 MG Apixaban 5 mg BID PO 06/09/25 22:00 Albuterol 2.5 mg Q6HWA [facility] 06/03/25 18:00 06/09/25 11:53 2.5 MG Ipratropium [place] 0.5 mg Q6HWA NEB 06/03/25 18:00 06/09/25 11:53 0.5 MG Budesonide 0.5 mg BID NEB 06/03/25 22:00 06/09/25 06:36 0.5 MG Potassium Bicarbonate 25 meq BID PO 06/04/25 22:00 06/09/25 09:51 25 MEQ Doxycycline Monohydrate 100 mg Q12HR PO 06/04/25 22:00 06/09/25 09:46 100 MG Furosemide 40 mg BIDD IV 06/05/25 09:30 06/09/25 05:56 40 MG Azithromycin 250 ml @ 125 mls/hr DAILY IV 06/05/25 11:30 06/09/25 09:46 125 MLS/HR Laboratory Results Laboratory Tests 06/08/25 09:37 06/09/25 13:13 Chemistry Test 06/09/25 13:13 Calcium Level 8.9 mg/dL (8.7-10.4) Urinalysis Test 05/31/25 23:34 Urine Color Yellow (Yellow) Urine Clarity Clear (Clear) Urine pH 7.0 (5.0-9.0) Urine Specific [place] 1.045 (1.001-1.035) Urine Protein Negative (Negative) Urine Ketones Trace (Negative) Urine Blood Negative /uL (Negative) Urine Nitrite Negative (Negative) Urine Bilirubin Negative (Negative) Urine Urobilinogen 2 mg/dL (Negative) H Urine Leukocyte Esterase Negative /uL (Negative) Urine Glucose Normal mg/dL (Normal) Assessment/Plan Assessment/Plan Impression: Acute hypoxic respiratory failure Dependence on supplemental oxygen Pulmonary embolism Ruled out DVT Diabetes mellitus Environmental exposure Snoring Morbid obesity, BMI 44.3 Events: Remains on supplemental oxygen Interval improvement to 6 LPM via NC Continue Taper O2 as tolerated Difficulty in tapering supplemental oxygen Continue bronchodilators Pulmicort BID Complete antibiotics Incentive spirometry Continue anticoagulation with Eliquis PO BID Cardiology recommendations appreciated Continue diuresis with Lasix Fluid and salt restriction Monitor renal function. Monitor electrolytes. Supplement as necessary. Potassium supplementation Protonix for GI ppx Recommend diet and lifestyle modifications for weight reduction given morbid obesity. Labs and imaging reviewed. Rest of plan as noted below. Plan: Supplemental oxygen Titrate to keep O2 sats above 92%. Ultrasound of BLE venous Doppler revealed no right or left femoropopliteal venous thrombosis. Chest CT angio with contrast demonstrated questionable small embolism at the distal left inferior lobar and proximal subsegmental branches. No evidence of right heart strain. Peripheral pulmonary arterial enlargement and basilar ground-glass attenuation suggesting mild heart failure. No focal consolidation. Chest CT w/o contrast on 06/06/25 showed minimal dependent atelectasis in the left lower lobe. No other acute cardiopulmonary process. Complete 3 months course of Eliquis. Bronchodilators. Incentive spirometry ECHO (06/01/25) results reviewed; Concentric LVH. Left ventricular systolic performance is preserved at 60% with normal RV function. RVSP of 20 mmHg. Mild TR. Cardiology recommendations appreciated Glycemic control Recommend outpatient sleep study as patient is at high risk of KJ Hx of environmental exposures - Avoid chemicals; wear PPE Diurese with Lasix as tolerated Monitor renal function. Monitor electrolytes. Supplement as necessary. Monitor ins and outs. Recommend diet and lifestyle modifications for weight reduction Obesity complicates all care DVT prophylaxis - Eliquis GI prophylaxis - Protonix Prognosis:Poor given patient's multiple co-morbidities. Rest of plan per hospitalist and other consultants. Thank you, ESTELLA Arteaga for allowing me to participate in this patient's care. Further recommendations will depend on the patient's clinical course. Please do not hesitate to contact me if you have any questions or concerns. This medical document was created using an electronic medical record system with [employer] dictation system. Although these documentations are being carefully reviewed, there may still be some phonetic and typographical changes. The errors are purely typographical, due to imperfection on the software program, and do not reflect any compromise in the patient's medical care. Plan discussed with: Patient, Other (RN [place], ESTELLA Arteaga) Visit Coding Pulmonary Billing Provider: MARKO HUYNH MD Date of Service if different f: Jun 09, 2025 Common Visit Codes: [id number] INP/OBS CARE(HIGH) MARKO HUYNH MD Jun 09, 2025 16:17
[2025-06-09] MEDS: APIXABAN 5 MG TAB PO SCH (21:16)
[2025-06-10] VITALS (16 sets, daily range): BP systolic 94–129; BP diastolic 56–75; PULSE 51–88; RESP 16–20; TEMP 97.7–97.9; O2SAT 92–100
--- NOTE | 2025-06-10 11:13 | DVHPN2 ---
Subjective Patient states that his breathing has improved from yesterday. Reviewed: Care Plan, H&P, Labs, Medications, Previous Orders, Radiology Changes from previous H/P or p: No Changes General: Per HPI Objective Vitals Vital Signs Date Time Temp Pulse Resp B/P (MAP) Pulse Ox O2 Delivery O2 Flow Rate FiO2 06/10/25 10:05 94 Nasal Cannula 5.0 06/10/25 10:05 40 06/10/25 09:48 82 128/56 06/10/25 09:00 97.7 16 97.7 Intake/Output Intake and Output 06/10/25 07:00 Intake Total 850 ml Output Total 200 ml Balance 650 ml Intake Oral 850 ml Output Urine Total 200 ml # Voids 3 General Appearance: Alert, Oriented X3, Cooperative, mild distress, Other (Morbidly obese) HEENT: Atraumatic, PERRLA Lungs: Other (Few crackles bilateral lower patel) Cardiovascular: Regular rate, Normal S1, Normal S2 Abdomen: Normal bowel sounds, Soft, No tenderness Extremities: Other (One to 2+ edema bilateral lower extremities) Skin: Dry, Intact Psych/Mental Status: Mental status NL, Mood NL Medications Current Medications Medications Dose Ordered Sig/Judi Route Start Time Stop Time Status Last Admin Dose Admin Nitroglycerin 0.4 mg Q5MINP PRN SL 05/31/25 20:45 Morphine Sulfate 2 mg Q30M PRN IV 05/31/25 20:45 Atorvastatin Calcium 10 mg HS PO 06/01/25 22:00 06/09/25 21:16 10 MG Metoprolol Succinate 12.5 mg DAILY PO 06/01/25 10:00 06/10/25 09:48 12.5 MG Albuterol 2.5 mg Q6HPRN PRN NEB 05/31/25 23:45 Acetaminophen/ Hydrocodone Bitart 1 tab Q4HP PRN PO 05/31/25 23:45 Ondansetron HCl 4 mg Q4HP PRN IV 05/31/25 23:45 Acetaminophen 650 mg Q6HP PRN PO 05/31/25 23:45 Pantoprazole Sodium 40 mg BID IV 06/01/25 22:00 06/10/25 09:49 40 MG Apixaban 5 mg BID PO 06/09/25 22:00 06/10/25 09:48 5 MG Albuterol 2.5 mg Q6HWA NEB 06/03/25 18:00 06/10/25 07:13 2.5 MG Ipratropium [place] 0.5 mg Q6HWA [facility] 06/03/25 18:00 06/10/25 07:12 0.5 MG Budesonide 0.5 mg BID NEB 06/03/25 22:00 06/10/25 07:12 0.5 MG Doxycycline Monohydrate 100 mg Q12HR PO 06/04/25 22:00 06/10/25 09:48 100 MG Furosemide 40 mg BIDD IV 06/05/25 09:30 06/10/25 06:34 40 MG Azithromycin 250 ml @ 125 mls/hr DAILY IV 06/05/25 11:30 06/10/25 09:48 125 MLS/HR Laboratory Results Laboratory Tests 06/08/25 09:37 06/09/25 13:13 Chemistry Test 06/09/25 13:13 Calcium Level 8.9 mg/dL (8.7-10.4) Urinalysis Test 05/31/25 23:34 Urine Color Yellow (Yellow) Urine Clarity Clear (Clear) Urine pH 7.0 (5.0-9.0) Urine Specific [place] 1.045 (1.001-1.035) Urine Protein Negative (Negative) Urine Ketones Trace (Negative) Urine Blood Negative /uL (Negative) Urine Nitrite Negative (Negative) Urine Bilirubin Negative (Negative) Urine Urobilinogen 2 mg/dL (Negative) H Urine Leukocyte Esterase Negative /uL (Negative) Urine Glucose Normal mg/dL (Normal) Labs and/or images reviewed: Labs reviewed by me, Image(s) reviewed by me Assessment/Plan Assessment/Plan Impression: -acute hypoxic respiratory failure -pulmonary embolism -rule out DVT -morbid obesity -diabetes mellitus, new diagnosis -rule out congestive heart failure -rule out GI bleed, -anemia Plan: Events: Patient had high-flow nasal cannula at 6 L/min. No change in assessment/plan on 06/10/2025. -out of bed for meals -EzPAP with treatments -BiPAP/CPAP at night if tolerated -[place] nasal spray -echocardiogram: Results reviewed -continue Eliquis -PPI -pulmonary consultation: Recommendations appreciated -Social service consult for home O2 Total time spent with patient discussing and formulating plan of care: 35 minutes. This medical document was created using an electronic medical record system with [employer] dictation system. Although this document has been carefully reviewed, there may still be some phonetic and typographical errors. These areas are purely typographical due to imperfections of the software programs, and do not reflect any compromise in the patient's medical care. Plan discussed with: Patient, Other (RN) Date of Service: Jun 10, 2025 Billing Provider: CATHI CASIANO NP Common Visit Codes: [id number] INP/OBS CARE(HIGH) CATHI CASIANO NP Jun 10, 2025 11:13
--- NOTE | 2025-06-10 12:35 | DVHPN2 ---
Subjective DOS: 06/10/2025 Patient seen and examined at bedside. Remains on supplemental oxygen Overnight events reviewed. Reviewed: Care Plan, H&P, Labs, Medications, Previous Orders, Radiology Changes from previous H/P or p: No Changes General: Per HPI Objective Vitals Vital Signs Date Time Temp Pulse Resp B/P (MAP) Pulse Ox O2 Delivery O2 Flow Rate FiO2 06/10/25 12:20 95 Nasal Cannula 5.0 06/10/25 12:20 58 16 06/10/25 12:20 N/A 06/10/25 09:48 128/56 06/10/25 09:00 97.7 97.7 Intake/Output Intake and Output 06/10/25 07:00 Intake Total 850 ml Output Total 200 ml Balance 650 ml Intake Oral 850 ml Output Urine Total 200 ml # Voids 3 General Appearance: Alert, Oriented X3, Cooperative, mild distress, Other (Morbidly obese) HEENT: Atraumatic, PERRLA Lungs: Other (Few crackles bilateral lower aptel) Cardiovascular: Regular rate, Normal S1, Normal S2 Abdomen: Normal bowel sounds, Soft, No tenderness Extremities: Other (One to 2+ edema bilateral lower extremities) Skin: Dry, Intact Psych/Mental Status: Mental status NL, Mood NL Medications Current Medications Medications Dose Ordered Sig/Judi Route Start Time Stop Time Status Last Admin Dose Admin Nitroglycerin 0.4 mg Q5MINP PRN SL 05/31/25 20:45 Morphine Sulfate 2 mg Q30M PRN IV 05/31/25 20:45 Atorvastatin Calcium 10 mg HS PO 06/01/25 22:00 06/09/25 21:16 10 MG Metoprolol Succinate 12.5 mg DAILY PO 06/01/25 10:00 06/10/25 09:48 12.5 MG Albuterol 2.5 mg Q6HPRN PRN NEB 05/31/25 23:45 Acetaminophen/ Hydrocodone Bitart 1 tab Q4HP PRN PO 05/31/25 23:45 Ondansetron HCl 4 mg Q4HP PRN IV 05/31/25 23:45 Acetaminophen 650 mg Q6HP PRN PO 05/31/25 23:45 Pantoprazole Sodium 40 mg BID IV 06/01/25 22:00 06/10/25 09:49 40 MG Apixaban 5 mg BID PO 06/09/25 22:00 06/10/25 09:48 5 MG Albuterol 2.5 mg Q6HWA [facility] 06/03/25 18:00 06/10/25 12:23 2.5 MG Ipratropium [place] 0.5 mg Q6HWA [facility] 06/03/25 18:00 06/10/25 12:22 0.5 MG Budesonide 0.5 mg BID NEB 06/03/25 22:00 06/10/25 07:12 0.5 MG Doxycycline Monohydrate 100 mg Q12HR PO 06/04/25 22:00 06/10/25 09:48 100 MG Furosemide 40 mg BIDD IV 06/05/25 09:30 06/10/25 06:34 40 MG Azithromycin 250 ml @ 125 mls/hr DAILY IV 06/05/25 11:30 06/10/25 09:48 125 MLS/HR Laboratory Results Laboratory Tests 06/08/25 09:37 06/09/25 13:13 Chemistry Test 06/09/25 13:13 Calcium Level 8.9 mg/dL (8.7-10.4) Urinalysis Test 05/31/25 23:34 Urine Color Yellow (Yellow) Urine Clarity Clear (Clear) Urine pH 7.0 (5.0-9.0) Urine Specific [place] 1.045 (1.001-1.035) Urine Protein Negative (Negative) Urine Ketones Trace (Negative) Urine Blood Negative /uL (Negative) Urine Nitrite Negative (Negative) Urine Bilirubin Negative (Negative) Urine Urobilinogen 2 mg/dL (Negative) H Urine Leukocyte Esterase Negative /uL (Negative) Urine Glucose Normal mg/dL (Normal) Assessment/Plan Assessment/Plan Impression: Acute hypoxic respiratory failure Dependence on supplemental oxygen Pulmonary embolism Ruled out DVT Diabetes mellitus Environmental exposure Snoring Morbid obesity, BMI 44.3 Events: Remains on supplemental oxygen On 5 LPM high flow via nasal cannula On humidifier Continue to taper O2 as tolerated Patient improved, out of bed to chair. Continue bronchodilators Pulmicort BID Complete antibiotics Incentive spirometry Continue anticoagulation with Eliquis PO BID Cardiology recommendations appreciated Continue diuresis with Lasix - maintain euvolemia Fluid and salt restriction Monitor renal function. Monitor electrolytes. Supplement as necessary. Monitor ins and outs. Monitor hemoglobin - 8.1 g/dL Transfuse if less than 7.0 g/dL. Protonix for GI ppx Recommend diet and lifestyle modifications for weight reduction given morbid obesity. Labs and imaging reviewed. Rest of plan as noted below. Plan: Supplemental oxygen Titrate to keep O2 sats above 92%. Monitor respiratory status closely d/t increased O2 requirements Ultrasound of BLE venous Doppler revealed no right or left femoropopliteal venous thrombosis. Chest CT angio with contrast demonstrated questionable small embolism at the distal left inferior lobar and proximal subsegmental branches. No evidence of right heart strain. Peripheral pulmonary arterial enlargement and basilar ground-glass attenuation suggesting mild heart failure. No focal consolidation. Chest CT w/o contrast on 06/06/25 showed minimal dependent atelectasis in the left lower lobe. No other acute cardiopulmonary process. Complete 3 months course of Eliquis. Bronchodilators. Incentive spirometry ECHO (06/01/25) results reviewed; Concentric LVH. Left ventricular systolic performance is preserved at 60% with normal RV function. RVSP of 20 mmHg. Mild TR. Cardiology recommendations appreciated Glycemic control Recommend outpatient sleep study as patient is at high risk of KJ Hx of environmental exposures - Avoid chemicals; wear PPE Diurese with Lasix as tolerated Monitor renal function. Monitor electrolytes. Supplement as necessary. Monitor ins and outs. Recommend diet and lifestyle modifications for weight reduction Obesity complicates all care DVT prophylaxis - Eliquis GI prophylaxis - Protonix Prognosis:Poor given patient's multiple co-morbidities. Rest of plan per hospitalist and other consultants. Thank you, ESTELLA Arteaga for allowing me to participate in this patient's care. Further recommendations will depend on the patient's clinical course. Please do not hesitate to contact me if you have any questions or concerns. This medical document was created using an electronic medical record system with [employer] dictation system. Although these documentations are being carefully reviewed, there may still be some phonetic and typographical changes. The errors are purely typographical, due to imperfection on the software program, and do not reflect any compromise in the patient's medical care. Plan discussed with: Patient, Other (TEO Haines) Visit Coding Pulmonary Billing Provider: MARKO HUYNH MD Date of Service if different f: Jun 10, 2025 Common Visit Codes: [id number] INP/OBS CARE(HIGH) MARKO HUYNH MD Jun 10, 2025 12:35
[2025-06-11] VITALS (14 sets, daily range): BP systolic 87–137; BP diastolic 48–72; PULSE 55–95; RESP 12–91; TEMP 96.7–98.6; O2SAT 91–97
--- NOTE | 2025-06-11 15:11 | DVHPN2 ---
Progress Note - Dictate Date Seen: Jun 11, 2025 Medical Necessity Reason Pt with a Central, PICC or Fol: No vital signs Vital Sign Date Time Temp Pulse Resp B/P (MAP) Pulse Ox O2 Delivery O2 Flow Rate FiO2 06/11/25 13:00 97.9 78 16 109/54 (72) 95 97.9 06/11/25 11:35 Nasal Cannula* 5 40 Total Intake and Output 06/10/25 06/10/25 06/11/25 15:00 23:00 07:00 Intake Total 250 ml 500 ml 450 ml Output Total 150 ml Balance 250 ml 500 ml 300 ml medications Current Medications Medications Dose Ordered Sig/Judi Route Start Time Stop Time Status Last Admin Dose Admin Nitroglycerin 0.4 mg Q5MINP PRN SL 05/31/25 20:45 Morphine Sulfate 2 mg Q30M PRN IV 05/31/25 20:45 Atorvastatin Calcium 10 mg HS PO 06/01/25 22:00 06/10/25 21:23 10 MG Metoprolol Succinate 12.5 mg DAILY PO 06/01/25 10:00 06/11/25 09:42 12.5 MG Albuterol 2.5 mg Q6HPRN PRN NEB 05/31/25 23:45 Acetaminophen/ Hydrocodone Bitart 1 tab Q4HP PRN PO 05/31/25 23:45 Ondansetron HCl 4 mg Q4HP PRN IV 05/31/25 23:45 Acetaminophen 650 mg Q6HP PRN PO 05/31/25 23:45 Pantoprazole Sodium 40 mg BID IV 06/01/25 22:00 06/11/25 09:43 40 MG Apixaban 5 mg BID PO 06/09/25 22:00 06/11/25 09:43 5 MG Albuterol 2.5 mg Q6HWA NEB 06/03/25 18:00 06/11/25 11:35 2.5 MG Ipratropium [place] 0.5 mg Q6HWA NEB 06/03/25 18:00 06/11/25 11:35 0.5 MG Budesonide 0.5 mg BID NEB 06/03/25 22:00 06/11/25 05:55 0.5 MG Doxycycline Monohydrate 100 mg Q12HR PO 06/04/25 22:00 06/11/25 09:43 100 MG Furosemide 40 mg BIDD IV 06/05/25 09:30 06/11/25 05:46 40 MG Azithromycin 250 ml @ 125 mls/hr DAILY IV 06/05/25 11:30 06/11/25 09:43 125 MLS/HR laboratory and microbiology Laboratory Tests 06/09/25 13:13 06/08/25 09:37 Test 06/09/25 13:13 Range/Units Serum Glucose 173 H 74-106 mg/dL Assessment/Plan Acute hypoxic respiratory failure Dependence on supplemental oxygen Pulmonary embolism on Eliquis Ruled out DVT Diabetes mellitus Environmental exposure Snoring Morbid obesity, BMI 44.3 Events: pt on 5 liters Anticoagulated with Eliquis No new events Plan: Supplemental oxygen Titrate to keep O2 sats above 92%. cont Eliquis Bronchodilators. Incentive spirometry Glycemic control Diurese with Lasix as tolerated Monitor renal function. Monitor electrolytes. Supplement as necessary. Monitor ins and outs. Recommend diet and lifestyle modifications for weight reduction Obesity complicates all care Patient would benefit from bipap 08/03 DVT prophylaxis - Eliquis GI prophylaxis - Protonix Obtain covid and influenza Home oxygen evaluation prior to discharge Prognosis:Poor given patient's multiple co-morbidities. Dietary Evaluation Review Comments: Nutrition Recommendation: 1) CCHO 75gm + cardiac diet 2) Refer [employer] for diabetes education 3) Monitor PO intake, lab values, weight trend, and I/O Expected Outcomes/Goals: To meet >75% estimated needs Lab values to improve Fu 3-5 days Plan discussed with: Patient CARLO ZARAGOZA MD Jun 11, 2025 15:11
--- NOTE | 2025-06-11 18:55 | DVHPN2 ---
Subjective NO COMPLAINTS Reviewed: Care Plan, H&P, Labs, Medications, Previous Orders, Radiology Changes from previous H/P or p: No Changes General: Per HPI Objective Vitals Vital Signs Date Time Temp Pulse Resp B/P (MAP) Pulse Ox O2 Delivery O2 Flow Rate FiO2 06/11/25 17:21 110/51 06/11/25 16:38 98.6 83 12 94 98.6 06/11/25 11:35 Nasal Cannula* 5 40 Intake/Output Intake and Output 06/11/25 07:00 Intake Total 1200 ml Output Total 150 ml Balance 1050 ml Intake Oral 950 ml IV Total 250 ml Output Urine Total 150 ml # Bowel Movements 1 General Appearance: Alert, Oriented X3, Cooperative, mild distress, Other (Morbidly obese) HEENT: Atraumatic, PERRLA Lungs: Other (Few crackles bilateral lower patel) Cardiovascular: Regular rate, Normal S1, Normal S2 Abdomen: Normal bowel sounds, Soft, No tenderness Musculoskeletal: Normal sensory function, Normal motor function Extremities: Other (One to 2+ edema bilateral lower extremities) Neuro: Normal gait, Normal speech, Strength at 5/5 X4 ext, Sensation intact, C ranial nerves 3-12 NL Skin: Dry, Intact Psych/Mental Status: Mental status NL, Mood NL Medications Current Medications Medications Dose Ordered Sig/Judi Route Start Time Stop Time Status Last Admin Dose Admin Nitroglycerin 0.4 mg Q5MINP PRN SL 05/31/25 20:45 Morphine Sulfate 2 mg Q30M PRN IV 05/31/25 20:45 Atorvastatin Calcium 10 mg HS PO 06/01/25 22:00 06/10/25 21:23 10 MG Metoprolol Succinate 12.5 mg DAILY PO 06/01/25 10:00 06/11/25 09:42 12.5 MG Albuterol 2.5 mg Q6HPRN PRN NEB 05/31/25 23:45 Acetaminophen/ Hydrocodone Bitart 1 tab Q4HP PRN PO 05/31/25 23:45 Ondansetron HCl 4 mg Q4HP PRN IV 05/31/25 23:45 Acetaminophen 650 mg Q6HP PRN PO 05/31/25 23:45 Pantoprazole Sodium 40 mg BID IV 06/01/25 22:00 06/11/25 09:43 40 MG Apixaban 5 mg BID PO 06/09/25 22:00 06/11/25 09:43 5 MG Albuterol 2.5 mg Q6HWA NEB 06/03/25 18:00 06/11/25 11:35 2.5 MG Ipratropium [place] 0.5 mg Q6HWA NEB 06/03/25 18:00 06/11/25 11:35 0.5 MG Budesonide 0.5 mg BID NEB 06/03/25 22:00 06/11/25 05:55 0.5 MG Doxycycline Monohydrate 100 mg Q12HR PO 06/04/25 22:00 06/11/25 09:43 100 MG Furosemide 40 mg BIDD IV 06/05/25 09:30 06/11/25 17:21 40 MG Azithromycin 250 ml @ 125 mls/hr DAILY IV 06/05/25 11:30 06/11/25 09:43 125 MLS/HR Laboratory Results Laboratory Tests 06/08/25 09:37 06/09/25 13:13 Urinalysis Test 05/31/25 23:34 Urine Color Yellow (Yellow) Urine Clarity Clear (Clear) Urine pH 7.0 (5.0-9.0) Urine Specific [place] 1.045 (1.001-1.035) Urine Protein Negative (Negative) Urine Ketones Trace (Negative) Urine Blood Negative /uL (Negative) Urine Nitrite Negative (Negative) Urine Bilirubin Negative (Negative) Urine Urobilinogen 2 mg/dL (Negative) H Urine Leukocyte Esterase Negative /uL (Negative) Urine Glucose Normal mg/dL (Normal) Assessment/Plan Assessment/Plan acute respiratory failure pulmonary embolism suspected sleep apnea- sleep study as op obesity Plan discussed with: Patient My Orders Orders - ROGER COLON MD Procedure Category Date Status Time Abg W/ Co-Ox RT 06/11/25 Logged 18:12 Date of Service: Jun 11, 2025 Billing Provider: ROGER COLON MD Common Visit Codes: [id number] INP/OBS CARE(MOD) ROGER COLON MD Jun 11, 2025 18:55
[2025-06-11 19:53] LABS: Base Excess 10.9 mmol/L (-2.0-3.0)
[2025-06-12] VITALS (16 sets, daily range): BP systolic 106–139; BP diastolic 55–71; PULSE 84–96; RESP 12–77; TEMP 97.6–99.5; O2SAT 92–100
[2025-06-12 05:41] LABS: Hemoglobin 8.2 g/dL (13.5-17.5)
[2025-06-12 05:44] LABS: Hematocrit 25.7 % (41.0-53.0); Mean Corpuscular Hemoglobin 29.3 pg (28.0-32.0); Mean Corpuscular Volume 91.4 fL (80.0-100.0); Nucleated Red Blood Cells % 0.1 %
[2025-06-12] MEDS ORDERED: POTASSIUM EFFERVESENT TAB 25 MEQ PO ONE (06:15)
[2025-06-12] MEDS: POTASSIUM EFFERVESENT TAB 25 MEQ PO ONE (10:14)
--- NOTE | 2025-06-12 14:02 | DVHPN2 ---
Progress Note - Dictate Date Seen: Jun 12, 2025 Medical Necessity Reason Pt with a Central, PICC or Fol: No vital signs Vital Sign Date Time Temp Pulse Resp B/P (MAP) Pulse Ox O2 Delivery O2 Flow Rate FiO2 06/12/25 12:51 98.3 90 77 125/71 (89) 93 98.3 06/12/25 10:05 Nasal Cannula 5.0 06/12/25 10:05 40 Total Intake and Output 06/11/25 06/11/25 06/12/25 14:59 22:59 06:59 Intake Total 700 ml 305 ml Output Total 300 ml 410 ml Balance 400 ml -105 ml medications Current Medications Medications Dose Ordered Sig/Juid Route Start Time Stop Time Status Last Admin Dose Admin Atorvastatin Calcium 10 mg HS PO 06/01/25 22:00 06/11/25 21:23 10 MG Metoprolol Succinate 12.5 mg DAILY PO 06/01/25 10:00 06/12/25 10:15 12.5 MG Albuterol 2.5 mg Q6HPRN PRN NEB 05/31/25 23:45 Acetaminophen/ Hydrocodone Bitart 1 tab Q4HP PRN PO 05/31/25 23:45 Acetaminophen 650 mg Q6HP PRN PO 05/31/25 23:45 Apixaban 5 mg BID PO 06/09/25 22:00 06/12/25 10:15 5 MG Albuterol 2.5 mg Q6HWA NEB 06/03/25 18:00 06/12/25 11:19 2.5 MG Ipratropium [place] 0.5 mg Q6HWA NEB 06/03/25 18:00 06/12/25 11:19 0.5 MG Budesonide 0.5 mg BID NEB 06/03/25 22:00 06/12/25 06:17 0.5 MG Doxycycline Monohydrate 100 mg Q12HR PO 06/04/25 22:00 06/12/25 10:14 100 MG Furosemide 40 mg BIDD IV 06/05/25 09:30 06/12/25 06:41 40 MG Azithromycin 250 ml @ 125 mls/hr DAILY IV 06/05/25 11:30 06/12/25 10:14 125 MLS/HR laboratory and microbiology Laboratory Tests 06/12/25 04:40 06/09/25 13:13 Test 06/09/25 13:13 Range/Units Serum Glucose 173 H 74-106 mg/dL Assessment/Plan Acute hypoxic respiratory failure Dependence on supplemental oxygen Pulmonary embolism on Eliquis Ruled out DVT Diabetes mellitus Environmental exposure Snoring Morbid obesity, BMI 44.3 Events: Low oxygen requirements on 5 liters nasal cannula no acute events labs and imaging reviewed Plan: Supplemental oxygen Titrate to keep O2 sats above 92%. cont Eliquis Bronchodilators. Incentive spirometry Glycemic control Diurese with Lasix as tolerated Monitor renal function. Monitor electrolytes. Supplement as necessary. Monitor ins and outs. Recommend diet and lifestyle modifications for weight reduction Obesity complicates all care Patient would benefit from bipap 08/03 DVT prophylaxis - Eliquis GI prophylaxis - Protonix Obtain covid and influenza Home oxygen evaluation prior to discharge Prognosis:Poor given patient's multiple co-morbidities. Dietary Evaluation Review Comments: Nutrition Recommendation: 1) CCHO 75gm + cardiac diet 2) Refer [employer] for diabetes education 3) Monitor PO intake, lab values, weight trend, and I/O Expected Outcomes/Goals: To meet >75% estimated needs Lab values to improve Fu 3-5 days Plan discussed with: Patient CARLO ZARAGOZA MD Jun 12, 2025 14:02
--- NOTE | 2025-06-12 16:39 | DVHPN2 ---
Subjective NO COMPLAINTS/still on o2 at 5l/hr Reviewed: Care Plan, H&P, Labs, Medications, Previous Orders, Radiology Changes from previous H/P or p: No Changes General: Per HPI Objective Vitals Vital Signs Date Time Temp Pulse Resp B/P (MAP) Pulse Ox O2 Delivery O2 Flow Rate FiO2 06/12/25 12:51 98.3 90 77 125/71 (89) 93 98.3 06/12/25 10:05 Nasal Cannula 5.0 06/12/25 10:05 40 Intake/Output Intake and Output 06/12/25 07:00 Intake Total 1255 ml Output Total 710 ml Balance 545 ml Intake Oral 1005 ml IV Total 250 ml Output Urine Total 710 ml General Appearance: Alert, Oriented X3, Cooperative, mild distress, Other (Morbidly obese) HEENT: Atraumatic, PERRLA Lungs: Other (Few crackles bilateral lower patel) Cardiovascular: Regular rate, Normal S1, Normal S2 Abdomen: Normal bowel sounds, Soft, No tenderness Musculoskeletal: Normal sensory function, Normal motor function Extremities: Other (One to 2+ edema bilateral lower extremities) Neuro: Normal gait, Normal speech, Strength at 5/5 X4 ext, Sensation intact, C ranial nerves 3-12 NL Skin: Dry, Intact Psych/Mental Status: Mental status NL, Mood NL Medications Current Medications Medications Dose Ordered Sig/Judi Route Start Time Stop Time Status Last Admin Dose Admin Atorvastatin Calcium 10 mg HS PO 06/01/25 22:00 06/11/25 21:23 10 MG Metoprolol Succinate 12.5 mg DAILY PO 06/01/25 10:00 06/12/25 10:15 12.5 MG Albuterol 2.5 mg Q6HPRN PRN NEB 05/31/25 23:45 Acetaminophen/ Hydrocodone Bitart 1 tab Q4HP PRN PO 05/31/25 23:45 Acetaminophen 650 mg Q6HP PRN PO 05/31/25 23:45 Apixaban 5 mg BID PO 06/09/25 22:00 06/12/25 10:15 5 MG Albuterol 2.5 mg Q6HWA NEB 06/03/25 18:00 06/12/25 11:19 2.5 MG Ipratropium [place] 0.5 mg Q6HWA NEB 06/03/25 18:00 06/12/25 11:19 0.5 MG Budesonide 0.5 mg BID NEB 06/03/25 22:00 06/12/25 06:17 0.5 MG Doxycycline Monohydrate 100 mg Q12HR PO 06/04/25 22:00 06/12/25 10:14 100 MG Furosemide 40 mg BIDD IV 06/05/25 09:30 06/12/25 06:41 40 MG Azithromycin 250 ml @ 125 mls/hr DAILY IV 06/05/25 11:30 06/12/25 10:14 125 MLS/HR Laboratory Results Laboratory Tests 06/09/25 13:13 06/12/25 04:40 Chemistry Test 06/12/25 04:40 Magnesium Level 1.9 mg/dL (1.6-2.6) Urinalysis Test 05/31/25 23:34 Urine Color Yellow (Yellow) Urine Clarity Clear (Clear) Urine pH 7.0 (5.0-9.0) Urine Specific [place] 1.045 (1.001-1.035) Urine Protein Negative (Negative) Urine Ketones Trace (Negative) Urine Blood Negative /uL (Negative) Urine Nitrite Negative (Negative) Urine Bilirubin Negative (Negative) Urine Urobilinogen 2 mg/dL (Negative) H Urine Leukocyte Esterase Negative /uL (Negative) Urine Glucose Normal mg/dL (Normal) Blood Gas Results Test 06/11/25 19:40 Arterial Blood pH 7.566 (7.350-7.450) FiO2 % 21.0 Assessment/Plan Assessment/Plan acute respiratory failure pulmonary embolism suspected sleep apnea- sleep study as op/pulmonary is rec bipap- at night/arrange otherwise schedule for sleep study as op and dc whebn o2 stable at 4l/min on 4l obesity Plan discussed with: Patient, Other My Orders Orders - ROGER COLON MD Procedure Category Date Status Time Abg W/ Co-Ox RT 06/11/25 Logged 18:12 Pt Request For Service PT 06/11/25 Logged 18:55 Date of Service: Jun 12, 2025 Billing Provider: ROGER COLON MD Common Visit Codes: [id number] INP/OBS CARE(HIGH) ROGER COLON MD Jun 12, 2025 16:38
[2025-06-12] MEDS: POTASSIUM CHL 20 Meq TABLET PO ONE (17:55)
[2025-06-13] VITALS (21 sets, daily range): BP systolic 93–134; BP diastolic 69–84; PULSE 70–98; RESP 12–20; TEMP 97.3–99.8; O2SAT 92–100
--- NOTE | 2025-06-13 12:53 | DVHPN2 ---
Subjective Patient states that his breathing has improved from yesterday. Reviewed: Care Plan, H&P, Labs, Medications, Previous Orders, Radiology Changes from previous H/P or p: No Changes General: Per HPI Objective Vitals Vital Signs Date Time Temp Pulse Resp B/P (MAP) Pulse Ox O2 Delivery O2 Flow Rate FiO2 06/13/25 12:04 90 19 98 06/13/25 11:58 Nasal Cannula 5.0 06/13/25 11:58 40 06/13/25 09:38 110/73 06/13/25 09:00 98.9 98.9 Intake/Output Intake and Output 06/13/25 07:00 Intake Total 830 ml Output Total 720 ml Balance 110 ml Intake Oral 580 ml IV Total 250 ml Output Urine Total 720 ml General Appearance: Alert, Oriented X3, Cooperative, mild distress, Other (Morbidly obese) HEENT: Atraumatic, PERRLA Lungs: Other (Few crackles bilateral lower patel) Cardiovascular: Regular rate, Normal S1, Normal S2 Abdomen: Normal bowel sounds, Soft, No tenderness Musculoskeletal: Normal sensory function, Normal motor function Extremities: Other (One to 2+ edema bilateral lower extremities) Neuro: Normal gait, Normal speech, Strength at 5/5 X4 ext, Sensation intact, C ranial nerves 3-12 NL Skin: Dry, Intact Psych/Mental Status: Mental status NL, Mood NL Medications Current Medications Medications Dose Ordered Sig/Judi Route Start Time Stop Time Status Last Admin Dose Admin Atorvastatin Calcium 10 mg HS PO 06/01/25 22:00 06/12/25 21:46 10 MG Metoprolol Succinate 12.5 mg DAILY PO 06/01/25 10:00 06/13/25 09:38 12.5 MG Albuterol 2.5 mg Q6HPRN PRN NEB 05/31/25 23:45 Acetaminophen/ Hydrocodone Bitart 1 tab Q4HP PRN PO 05/31/25 23:45 Acetaminophen 650 mg Q6HP PRN PO 05/31/25 23:45 Apixaban 5 mg BID PO 06/09/25 22:00 06/13/25 09:37 5 MG Albuterol 2.5 mg Q6HWA NEB 06/03/25 18:00 06/13/25 11:58 2.5 MG Ipratropium [place] 0.5 mg Q6HWA NEB 06/03/25 18:00 06/13/25 11:58 0.5 MG Budesonide 0.5 mg BID NEB 06/03/25 22:00 06/13/25 06:34 0.5 MG Doxycycline Monohydrate 100 mg Q12HR PO 06/04/25 22:00 06/13/25 09:37 100 MG Furosemide 40 mg BIDD IV 06/05/25 09:30 06/13/25 05:30 40 MG Azithromycin 250 ml @ 125 mls/hr DAILY IV 06/05/25 11:30 06/13/25 09:37 125 MLS/HR Laboratory Results Laboratory Tests 06/09/25 13:13 06/12/25 04:40 Urinalysis Test 05/31/25 23:34 Urine Color Yellow (Yellow) Urine Clarity Clear (Clear) Urine pH 7.0 (5.0-9.0) Urine Specific [place] 1.045 (1.001-1.035) Urine Protein Negative (Negative) Urine Ketones Trace (Negative) Urine Blood Negative /uL (Negative) Urine Nitrite Negative (Negative) Urine Bilirubin Negative (Negative) Urine Urobilinogen 2 mg/dL (Negative) H Urine Leukocyte Esterase Negative /uL (Negative) Urine Glucose Normal mg/dL (Normal) Labs and/or images reviewed: Labs reviewed by me, Image(s) reviewed by me Assessment/Plan Assessment/Plan Impression: -acute hypoxic respiratory failure -pulmonary embolism -rule out DVT -morbid obesity -diabetes mellitus, new diagnosis -rule out congestive heart failure -rule out GI bleed, -anemia Plan: Events: Patient had high-flow nasal cannula at 5L/min. -out of bed for meals -EzPAP with treatments -BiPAP/CPAP at night if tolerated -Josephine nasal spray -echocardiogram: Results reviewed -continue Eliquis -PPI -pulmonary consultation: Recommendations appreciated -Social service consult for home O2. Reassess for DC tomorrow Total time spent with patient discussing and formulating plan of care: 35 minutes. This medical document was created using an electronic medical record system with [email or web address] system. Although this document has been carefully reviewed, there may still be some phonetic and typographical errors. These areas are purely typographical due to imperfections of the software programs, and do not reflect any compromise in the patient's medical care. Plan discussed with: Patient, Son, Other (RN) Date of Service: Jun 13, 2025 Billing Provider: CATHI CASIANO NP Common Visit Codes: [id number] INP/OBS CARE(HIGH) CATHI CASIANO NP Jun 13, 2025 12:53
--- NOTE | 2025-06-13 13:10 | DVHPN2 ---
Progress Note - Dictate Date Seen: Jun 13, 2025 Medical Necessity Reason Pt with a Central, PICC or Fol: No vital signs Vital Sign Date Time Temp Pulse Resp B/P (MAP) Pulse Ox O2 Delivery O2 Flow Rate FiO2 06/13/25 12:55 98.5 85 12 134/72 (92) 96 98.5 06/13/25 11:58 Nasal Cannula 5.0 06/13/25 11:58 40 Total Intake and Output 06/12/25 06/12/25 06/13/25 15:00 23:00 07:00 Intake Total 250 ml 400 ml 180 ml Output Total 600 ml 120 ml Balance 250 ml -200 ml 60 ml medications Current Medications Medications Dose Ordered Sig/Judi Route Start Time Stop Time Status Last Admin Dose Admin Atorvastatin Calcium 10 mg HS PO 06/01/25 22:00 06/12/25 21:46 10 MG Metoprolol Succinate 12.5 mg DAILY PO 06/01/25 10:00 06/13/25 09:38 12.5 MG Albuterol 2.5 mg Q6HPRN PRN NEB 05/31/25 23:45 Acetaminophen/ Hydrocodone Bitart 1 tab Q4HP PRN PO 05/31/25 23:45 Acetaminophen 650 mg Q6HP PRN PO 05/31/25 23:45 Apixaban 5 mg BID PO 06/09/25 22:00 06/13/25 09:37 5 MG Albuterol 2.5 mg Q6HWA NEB 06/03/25 18:00 06/13/25 11:58 2.5 MG Ipratropium [place] 0.5 mg Q6HWA NEB 06/03/25 18:00 06/13/25 11:58 0.5 MG Budesonide 0.5 mg BID NEB 06/03/25 22:00 06/13/25 06:34 0.5 MG Doxycycline Monohydrate 100 mg Q12HR PO 06/04/25 22:00 06/13/25 09:37 100 MG Furosemide 40 mg BIDD IV 06/05/25 09:30 06/13/25 05:30 40 MG Azithromycin 250 ml @ 125 mls/hr DAILY IV 06/05/25 11:30 06/13/25 09:37 125 MLS/HR laboratory and microbiology Laboratory Tests 06/12/25 04:40 06/09/25 13:13 Test 06/09/25 13:13 Range/Units Serum Glucose 173 H 74-106 mg/dL Assessment/Plan Acute hypoxic respiratory failure Dependence on supplemental oxygen Pulmonary embolism on Eliquis Ruled out DVT Diabetes mellitus Environmental exposure Snoring Morbid obesity, BMI 44.3 Events: Low oxygen requirements on 5 liters nasal cannula no acute events labs and imaging reviewed Plan: Supplemental oxygen Titrate to keep O2 sats above 92%. cont Eliquis Bronchodilators. Incentive spirometry Glycemic control Diurese with Lasix as tolerated Monitor renal function. Monitor electrolytes. Supplement as necessary. Monitor ins and outs. Recommend diet and lifestyle modifications for weight reduction Obesity complicates all care Patient would benefit from bipap 08/03 DVT prophylaxis - Eliquis GI prophylaxis - Protonix Obtain covid and influenza Home oxygen evaluation prior to discharge Okay to discharge from pulmonary standpoint Prognosis:Poor given patient's multiple co-morbidities. Dietary Evaluation Review Comments: Nutrition Recommendation: 1) CCHO 75gm + cardiac diet 2) Refer [employer] for diabetes education 3) Monitor PO intake, lab values, weight trend, and I/O Expected Outcomes/Goals: To meet >75% estimated needs Lab values to improve Fu 3-5 days Plan discussed with: Patient CARLO ZARAGOZA MD Jun 13, 2025 13:10
[2025-06-14] VITALS (13 sets, daily range): BP systolic 103–118; BP diastolic 45–63; PULSE 52–90; RESP 16–19; TEMP 97–98.2; O2SAT 92–100
[2025-06-14] MEDS ORDERED: METO25TA36 PO (09:30)
[2025-06-14] MEDS ORDERED: APIX5TAB PO (09:30)
[2025-06-14] MEDS ORDERED: BUDE1AER5 IN (09:30)
--- NOTE | 2025-06-14 09:40 | DVHDS2 ---
Discharge Summary Date of Admission May 31, 2025 at 20:31 Date of Discharge: Jun 14, 2025 Admitting Diagnosis Pulmonary embolism, acute hypoxic respiratory failure Labs/Diagnostic Data: Laboratory Results Test 06/12/25 04:40 06/11/25 19:40 06/09/25 13:13 06/06/25 17:00 White Blood Count 5.9 10^3/uL (4.4-10.8) Red Blood Count 2.81 10^6/uL (4.5-5.90) Hemoglobin 8.2 g/dL (13.5-17.5) Hematocrit 25.7 % (41.0-53.0) Mean Corpuscular Volume 91.4 fL (80.0-100.0) Mean Corpuscular Hemoglobin 29.3 pg (28.0-32.0) Mean Corpuscular Hemoglobin Concent 32.1 g/dL (32.0-36.0) Red Cell Distribution Width 15.9 % (11.8-14.3) Platelet Count 429 10^3/uL (140-450) Mean Platelet Volume 6.8 fL (6.9-10.8) Neutrophils (%) (Auto) 75.9 % (37.0-80.0) Lymphocytes (%) (Auto) 10.1 % (10.0-50.0) Monocytes (%) (Auto) 10.4 % (0.0-12.0) Eosinophils (%) (Auto) 2.8 % (0.0-7.0) Basophils (%) (Auto) 0.8 % (0.0-2.0) Neutrophils # (Auto) 4.5 10 ^3/uL (1.6-8.6) Lymphocytes # (Auto) 0.6 10 ^3/uL (0.4-5.4) Monocytes # (Auto) 0.6 10 ^3/uL (0-1.3) Eosinophils # (Auto) 0.2 10 ^3/uL (0-0.8) Basophils # (Auto) 0 10 ^3/uL (0-0.2) Nucleated Red Blood Cells 0.1 % Potassium Level 3.1 mmol/L (3.5-5.1) Magnesium Level 1.9 mg/dL (1.6-2.6) Blood Gas Specimen Type Arterial Blood Gas Sample Site Right radial Blood Gas Patient Temperature 37.0 Arterial Blood Date Drawn [id number] Arterial Blood pH 7.566 (7.350-7.450) Arterial Blood Partial Pressure CO2 38.2 mmHg (35.0-48.0) Arterial Blood Partial Pressure O2 46.0 mmHg (83.0-108.0) Arterial Blood HCO3 33.9 mmol/L (21.0-28.0) Arterial Blood Oxygen Saturation 82.4 % (94.0-98.0) Arterial Blood Base Excess 10.9 mmol/L (-2.0-3.0) Arterial Blood Oxyhemoglobin 81.7 % (94.0-98.0) Arterial Blood Carboxyhemoglobin 0.5 % (0.5-1.5) Arterial Blood Methemoglobin 0.3 % (0.0-1.5) Oc Test Yes Blood Gas Total Hemoglobin 9.10 g/dL (13.5-17.5) Blood Gas Modality Room air FiO2 % 21.0 Blood Gas Critical Value Read Back Yes Blood Gas Notified Whom aiyana Simon md Blood Gas Notified Time [id number] Blood Gas Notified By jacque Constantino rrt Sodium Level 138 mmol/L (136-145) Chloride Level 94 mmol/L (98-107) Carbon Dioxide Level 31 mmol/L (20-31) Anion Gap 13 (5-15) Blood Urea Nitrogen 25 mg/dL (9-23) Creatinine 1.02 mg/dL (0.700-1.30) Glomerular Filtration Rate Calc 77 mL/min (>90) BUN/Creatinine Ratio 24.5 (10.0-20.0) Serum Glucose 173 mg/dL (74-106) Calcium Level 8.9 mg/dL (8.7-10.4) Influenza Type A Antigen Negative (Negative) Influenza Type B Antigen Negative (Negative) SARS-CoV-2 Antigen (Rapid) Negative (NEGATIVE) Test 06/06/25 13:03 06/06/25 12:13 06/04/25 11:08 06/01/25 15:16 Erythrocyte Sedimentation Rate 79 mm/hr (0-20) D-Dimer, Quantitative 1.43 mg/L FEU (0.0-0.49) Total Bilirubin 0.9 mg/dL (0.2-1.0) Aspartate Amino Transferase (AST) 23 U/L (13-40) Alanine Aminotransferase (ALT) 20 U/L (7-40) Alkaline Phosphatase 78 U/L (46-116) Creatine Kinase 237 U/L (46-171) Troponin I High Sensitivity < 3 ng/L (</=54) Total Protein 7.1 g/dL (5.7-8.2) Albumin 4.0 g/dL (3.2-4.8) B-Type Natriuretic Peptide 51.43 pg/mL (0-100) Free Prostate Specific Antigen 0.34 ng/mL (N/A) Percent Free Prostate Specific Ag 14.2 % (.) Prostate Specific Antigen Total 2.4 ng/mL (0.0-4.0) Test 06/01/25 12:16 06/01/25 05:42 05/31/25 23:39 05/31/25 23:34 POC Glucose 189 mg/dl (70-106) Lactate Dehydrogenase 144 U/L (120-246) C-Reactive Protein High Sensitivity 2.05 mg/dL (<1.0) Carcinoembryonic Antigen 1.07 ng/mL (<=5.0) Urine Opiates Screen Neg (NEGATIVE) Urine Fentanyl Screen Neg (NEGATIVE) Urine Barbiturates Screen Neg (NEGATIVE) Urine Phencyclidine Screen Neg (NEGATIVE) Urine Amphetamines Screen Neg (NEGATIVE) Urine Benzodiazepines Screen Neg (NEGATIVE) Urine Cocaine Screen Neg (NEGATIVE) Urine Cannabinoids Screen Neg (NEGATIVE) Urine Color Yellow (Yellow) Urine Clarity Clear (Clear) Urine pH 7.0 (5.0-9.0) Urine Specific [place] 1.045 (1.001-1.035) Urine Protein Negative (Negative) Urine Ketones Trace (Negative) Urine Blood Negative /uL (Negative) Urine Nitrite Negative (Negative) Urine Bilirubin Negative (Negative) Urine Urobilinogen 2 mg/dL (Negative) Urine Leukocyte Esterase Negative /uL (Negative) Urine Glucose Normal mg/dL (Normal) Test 05/31/25 19:43 05/31/25 18:50 Triglycerides Level 90 mg/dL (< 150) Cholesterol Level 116 mg/dL (< 200) LDL Cholesterol 79 mg/dL (< 100) HDL Cholesterol 35 mg/dL (40-59) Thyroid Stimulating Hormone (TSH) 1.50 uIU/mL (0.55-4.78) Hemoglobin A1c 6.7 % A1C (<5.7) Other Laboratory Tests 06/12/25 04:40 06/09/25 13:13 Brief Hx & Hospital Course: History of Present Illness 74-year-old male presents for evaluation of shortness for breath. Patient reports a one day history of new onset shortness for breath. He states his symptoms are worse with exertion. Denies chest pain or palpitations. No cough or fever. No other acute complaints. Patient has not seen a medical provider in over 30 years. Course of hospitalization: Patient was found to have positive pulmonary embolism in addition to having severe acute hypoxia. Echocardiogram was performed, normal ejection fraction. Patient was negative for DVT. Patient reported that he had severe exertional dyspnea while at home. CT scan was repeated given patient had persistent hypoxia without improvement. Patient had noted right lower lobe atelectasis. Bronchodilators were initiated, ICS was initiated, as well as patient having BiPAP at night as well as EzPAP with breathing treatments during the day. Patient had physical therapy. Patient had improvement with his hypoxia, now on nasal cannula at 3 L/min, saturation remaining 94%. He will follow up with the discharge Clinic in one week, Dr. Mcneill, pulmonology for outpatient sleep study, as well as being discharged home with Eliquis, Toprol-XL, as well as Symbicort. Patient will also be provided oxygen, instructed to use 3-4 L/min, always to use at nighttime. Given his severe obesity and limited movement, patient will be provided DME in the form of a walker as well as home physical therapy. Patient was agreeable with discharge plan. All questions answered. Physical examination General: Alert and Oriented x3. No acute distress. Well-nourished. Obese Eyes: EOMI. Anicteric. HENT: Moist mucous membranes. Lungs: Clear to auscultation bilaterally. No accessory muscle use. Cardiovascular: Regular rate and rhythm. No murmur. No JVD. Abdomen: Soft, non-tender and non-distended. No palpable masses. Extremities: No edema. Non-tender. Skin: No rashes or lesions. Warm. Neurologic: No focal neurological deficits. CN II-XII grossly intact, but not individually tested. Psychiatric: Cooperative. Appropriate mood and affect. Total time spent with patient discussing and formulating plan of care: 35 minutes. This medical document was created using an electronic medical record system with Dragon computerized dictation system. Although this document has been carefully reviewed, there may still be some phonetic and typographical errors. These areas are purely typographical due to imperfections of the software programs, and do not reflect any compromise in the patient's medical care. Consults/Reason for consult Pulmonology: Acute hypoxic respiratory failure, pulmonary embolus Condition at Discharge: Guarded Final Diagnosis/Problems List Pulmonary embolism Acute hypoxic respiratory failure -rule out DVT -morbid obesity -diabetes mellitus, new diagnosis -HFpEF -ruled out GI bleed, -anemia Discharge Disposition: Home Discharge Instruct/Medications Diet: Regular, Cardiac 2g Na,low cholest Diet comment: Recommend to decrease caloric intake for weight loss Activity: No Restrictions, As Tolerated Follow Up/Referral: Follow up with discharge Clinic in one week Established PCP Medications: Symbicort one puff b.i.d. for 30 days Toprol-XL 25 mg p.o. daily Eliquis 5 mg p.o. b.i.d. Scheduled Apixaban Base (Eliquis), 5 MG PO BID Budesonide-Formoterol Fumarate (Budesonide/Formoterol Fum 80-4.5 Mcg/Act), 1 AER IN BID Metoprolol Succinate (Toprol Xl), 1 TAB PO DAILY 36 Discharge Statement: "Patient was advised to return to the ER or call 911 if any headaches, dizziness, shortness of breath, chest pain, abdominal pain, bleeding, fevers, or worsening of medical condition. Patient was counseled about treatment plan, medications, possible side effects, patientverbalized understanding. All questions were answered to the best of my ability. This discharge took greater then 30 minutes in planning, reviewing documentation, counseling the patient, and discussing with other team members." ASSESSMENT ASSESSMENT Assessment Pulmonary embolism Acute hypoxic respiratory failure Date of Service: Jun 14, 2025 Billing Provider: CATHI CASIANO NP Common Visit Codes: [id number] DISCH DAY >30min CATHI CASIANO NP Jun 14, 2025 09:40
--- NOTE | 2025-06-14 14:44 | DVHPN2 ---
Progress Note - Dictate Date Seen: Jun 14, 2025 Medical Necessity Reason Pt with a Central, PICC or Fol: No vital signs Vital Sign Date Time Temp Pulse Resp B/P (MAP) Pulse Ox O2 Delivery O2 Flow Rate FiO2 06/14/25 12:52 97.4 80 19 105/59 (74) 98 97.4 06/14/25 11:16 Nasal Cannula 3.0 06/14/25 11:16 32 Total Intake and Output 06/13/25 06/13/25 06/14/25 15:00 23:00 07:00 Intake Total 250 ml 1000 ml 1000 ml Output Total 550 ml 1200 ml Balance 250 ml 450 ml -200 ml medications Current Medications Medications Dose Ordered Sig/Judi Route Start Time Stop Time Status Last Admin Dose Admin Atorvastatin Calcium 10 mg HS PO 06/01/25 22:00 06/13/25 21:01 10 MG Metoprolol Succinate 12.5 mg DAILY PO 06/01/25 10:00 06/14/25 10:15 12.5 MG Albuterol 2.5 mg Q6HPRN PRN NEB 05/31/25 23:45 Apixaban 5 mg BID PO 06/09/25 22:00 06/14/25 10:14 5 MG Albuterol 2.5 mg Q6HWA NEB 06/03/25 18:00 06/14/25 11:16 2.5 MG Ipratropium [place] 0.5 mg Q6HWA NEB 06/03/25 18:00 06/14/25 11:16 0.5 MG Budesonide 0.5 mg BID NEB 06/03/25 22:00 06/14/25 06:20 0.5 MG Furosemide 40 mg BIDD IV 06/05/25 09:30 06/14/25 05:29 40 MG laboratory and microbiology Laboratory Tests 06/12/25 04:40 06/09/25 13:13 Test 06/09/25 13:13 Range/Units Serum Glucose 173 H 74-106 mg/dL Assessment/Plan Acute hypoxic respiratory failure Dependence on supplemental oxygen Pulmonary embolism on Eliquis Ruled out DVT Diabetes mellitus Environmental exposure Snoring Morbid obesity, BMI 44.3 Events: Low oxygen requirements on 5 liters nasal cannula no distress labs and imaging reviewed Plan: Supplemental oxygen Titrate to keep O2 sats above 92%. cont Eliquis Bronchodilators. Incentive spirometry Glycemic control Diurese with Manuelix as tolerated Monitor renal function. Monitor electrolytes. Supplement as necessary. Monitor ins and outs. Recommend diet and lifestyle modifications for weight reduction Obesity complicates all care Patient would benefit from bipap 08/03 DVT prophylaxis - Eliquis GI prophylaxis - Protonix Home oxygen evaluation prior to discharge Okay to discharge from pulmonary standpoint Dietary Evaluation Review Comments: Nutrition Recommendation: 1) CCHO 75gm + cardiac diet 2) Refer [employer] for diabetes education 3) Monitor PO intake, lab values, weight trend, and I/O Expected Outcomes/Goals: To meet >75% estimated needs Lab values to improve Fu 3-5 days Plan discussed with: Patient CARLO ZARAGOZA MD Jun 14, 2025 14:44
== END 2025-06-14 19:54 | disposition home health service (06) | DRG 175 ==
LOC: EDBD 18:06 → ER 18:15 → OVERFLOW 20:31 → TELE-CENTR 23:49
PROVIDERS: ADMIT Nurse Practitioner Acute Care; ATTEND Nurse Practitioner Acute Care
PROC: 5A0935A Assistance with Respiratory Ventilation, Less than 24 Consecutive Hours, High Flow/Velocity Cannula (ICD-10-PCS; principal; 2025-06-10)
PROC: 5A09357 Assistance with Respiratory Ventilation, Less than 24 Consecutive Hours, Continuous Positive Airway Pressure (ICD-10-PCS; 2025-06-12)
PROC: 5A0935A Assistance with Respiratory Ventilation, Less than 24 Consecutive Hours, High Flow/Velocity Cannula (ICD-10-PCS; 2025-06-13)
PROC: 5A09357 Assistance with Respiratory Ventilation, Less than 24 Consecutive Hours, Continuous Positive Airway Pressure (ICD-10-PCS; 2025-06-13)
PROC: 5A09357 Assistance with Respiratory Ventilation, Less than 24 Consecutive Hours, Continuous Positive Airway Pressure (ICD-10-PCS; 2025-06-14)
DX: I26.99 Other pulmonary embolism without acute cor pulmonale (principal); I50.31 Acute diastolic (congestive) heart failure; J96.01 Acute respiratory failure with hypoxia; J98.11 Atelectasis; Z68.42 Body mass index [BMI] 45.0-49.9, adult; I11.0 Hypertensive heart disease with heart failure; I07.1 Rheumatic tricuspid insufficiency; Z20.822 Contact with and (suspected) exposure to COVID-19; I49.3 Ventricular premature depolarization; E11.9 Type 2 diabetes mellitus without complications; E66.01 Morbid (severe) obesity due to excess calories; D64.9 Anemia, unspecified; Z79.01 Long term (current) use of anticoagulants; Z99.81 Dependence on supplemental oxygen
CPT/HCPCS: 36415; 36600; 71045; 71250; 71275; 80048; 80053; 80061; 80307; 81001; 81003; 82378; 82550; 82805; 82962; 83036; 83615; 83735; 83880; 84132; 84154; 84443; 84484; 85014; 85018; 85025; 85379; 85652; 86141; 87426; 87804; 93005; 93306; 93970; 94640; 94660; 97110; 97116; 97163; 97530; G0378; J2470